=== PATIENT | female | born 1980 | race Caucasian/White ===

== ENCOUNTER → 2016-10-12 | Outpatient (REF) | payer OTHER ==
[~2016-10-12] MED LIST: ALBU83IN; COLA100C2; FLUC10TA; IBUP200C PO; LEVA750T; MUCINEX; NICO14DI3; NYSTATIN ORAL; No Historical Meds; PERC5TAB8; PRED10TA2; PRED20TA; PRED50TA; [UNRECOGNIZED DRUG - CODE] IV
== END ==
LOC: M LAB REF 12:51
PROVIDERS: ATTEND Physician Assistant
DX: R53.83 Other fatigue (principal)

== ENCOUNTER → 2016-10-18 | Outpatient (REF) | payer OTHER ==
[2016-10-18 15:57] LABS: BASO % 0.2 % (0.0-1.0); EOS # 0.5 K/mm3 (0.0-0.50); EOS % 4.7 % (0.0-3.0); LARGE UNSTAINED CELL # 0.3 K/mm3 (0.0-0.4); LYMPH # 2.8 K/mm3 (1.5-4.5); MEAN CORPUSCULAR HEMOGLOBIN 27.4 pg (27.0-33.0); MEAN CORPUSCULAR HGB CONC 31.4 g/dl (32.0-36.5); MEAN CORPUSCULAR VOLUME 87.1 fl (80.0-96.0); MONO # 0.6 K/mm3 (0.0-0.8); MONO % 5.4 % (0.0-5.0); NEUTROPHILS # 6.3 K/mm3 (1.8-7.7); NEUTROPHILS % 59.7 % (36.0-66.0); PLATELET COUNT, AUTOMATED 463 k/mm3 (150-450); RED CELL DISTRIBUTION WIDTH 13.3 % (11.5-14.5); WHITE BLOOD COUNT 10.5 K/mm3 (4.0-10.0)
[2016-10-18 16:08] LABS: ALBUMIN 3.8 GM/DL (3.2-5.2); ALBUMIN/GLOBULIN RATIO 1.12 (1.00-1.93); ALKALINE PHOSPHATASE 130 U/L (45-117); ALT/SGPT 17 U/L (12-78); ANION GAP 9 MEQ/L (8-16); AST/SGOT 8 U/L (15-37); BILIRUBIN,TOTAL 0.2 MG/DL (0.2-1.0); BLOOD UREA NITROGEN 11 MG/DL (7-18); CARBON DIOXIDE LEVEL 27 MEQ/L (21-32); CHLORIDE LEVEL 105 MEQ/L (98-107); CREATININE FOR GFR 0.89 MG/DL (0.55-1.02); GLOMERULAR FILTRATION RATE > 60.0 (>60); GLUCOSE, FASTING 100 MG/DL (70-105); POTASSIUM SERUM 4.3 MEQ/L (3.5-5.1); SODIUM LEVEL 141 MEQ/L (136-145); TOTAL PROTEIN 7.2 GM/DL (6.4-8.2)
[2016-10-19 11:26] LABS: CONTROL LINE MONO INT CTR LINE PRESENT
== END ==
LOC: M SFHCPLAZ 13:39
PROVIDERS: ATTEND Physician Assistant
DX: J06.9 Acute upper respiratory infection, unspecified (principal); R53.83 Other fatigue

== ENCOUNTER → 2016-10-25 | Outpatient (REF) | payer OTHER ==
[2016-10-25 19:37] LABS: BASO % 0.2 % (0.0-1.0); EOS # 0.5 K/mm3 (0.0-0.50); EOS % 4.9 % (0.0-3.0); LARGE UNSTAINED CELL # 0.2 K/mm3 (0.0-0.4); LYMPH # 3.9 K/mm3 (1.5-4.5); LYMPH % 34.5 % (24.0-44.0); MEAN CORPUSCULAR HGB CONC 32.3 g/dl (32.0-36.5); MEAN CORPUSCULAR VOLUME 86.5 fl (80.0-96.0); MONO # 0.6 K/mm3 (0.0-0.8); MONO % 5.3 % (0.0-5.0); NEUTROPHILS # 5.7 K/mm3 (1.8-7.7); NEUTROPHILS % 53.2 % (36.0-66.0); PLATELET COUNT, AUTOMATED 367 k/mm3 (150-450); WHITE BLOOD COUNT 10.8 K/mm3 (4.0-10.0)
[2016-10-25 20:11] LABS: ALBUMIN/GLOBULIN RATIO 1.14 (1.00-1.93); ALKALINE PHOSPHATASE 131 U/L (45-117); ALT/SGPT 16 U/L (12-78); AMYLASE 57 U/L (25-115); ANION GAP 8 MEQ/L (8-16); AST/SGOT 14 U/L (15-37); BILIRUBIN,TOTAL 0.4 MG/DL (0.2-1.0); BLOOD UREA NITROGEN 9 MG/DL (7-18); CALCIUM LEVEL 8.8 MG/DL (8.5-10.1); CARBON DIOXIDE LEVEL 26 MEQ/L (21-32); CHLORIDE LEVEL 105 MEQ/L (98-107); CREATININE FOR GFR 0.92 MG/DL (0.55-1.02); FREE T4 0.87 NG/DL (0.76-1.46); GLOMERULAR FILTRATION RATE > 60.0 (>60); GLUCOSE, FASTING 84 MG/DL (70-105); POTASSIUM SERUM 4.2 MEQ/L (3.5-5.1); SODIUM LEVEL 139 MEQ/L (136-145); TOTAL PROTEIN 7.5 GM/DL (6.4-8.2)
== END ==
LOC: M SFHCPLAZ 17:29
PROVIDERS: ATTEND Nurse Practitioner Family
DX: R11.2 Nausea with vomiting, unspecified (principal); R53.83 Other fatigue; A09 Infectious gastroenteritis and colitis, unspecified

== ENCOUNTER → 2016-10-26 | Outpatient (REF) | payer OTHER | LOC: M SFHCPLAZ 12:55 | PROVIDERS: ATTEND Nurse Practitioner Family | DX: R11.2 Nausea with vomiting, unspecified (principal); A09 Infectious gastroenteritis and colitis, unspecified ==

== ENCOUNTER → 2016-11-01 | Outpatient (CLI) | payer OTHER ==
--- NOTE | 2016-11-01 09:39 | REP ---
RIGHT UPPER QUADRANT ULTRASOUND: 11/01/2016. Comparison CT abdomen and pelvis 01/22/2011. Clinical history. Right upper quadrant pain. The liver is homogeneous in echotexture without focal hepatic mass, intrahepatic biliary dilatation nor perihepatic ascites. Gallbladder measures 5.6 x 3.3 x 3.3 cm. It has a wall thickness 1.4 mm which is normal. There is a mucosal fold in the fundus representing a normal anatomic variation. Some echogenic debris is within that fold. There was a positive sonographic Pedroza's sign recorded by the technologist during this examination. Common duct is 2.8 mm and without a filling defect. Pancreas is limited in evaluation but the visualized portion of head, neck and body seen were unremarkable. Tail is obscured by gas shadowing. Right kidney is 9.3 x 5.8 x 5.5 cm without stone or hydronephrosis. Impression: 1. There is echogenic debris in the fundus of the gallbladder behind the mucosal fold which is a common anatomic variation. A positive sonographic Pedroza's sign is seen. There is no definite stone, wall thickening or pericholecystic fluid. 2. Common duct 2.8 mm and the liver grossly unremarkable. 3. Visualized portion of pancreas and right kidney unremarkable.
== END ==
LOC: M WHC 08:26
PROVIDERS: ATTEND Physician Assistant
DX: R10.11 Right upper quadrant pain (principal)

== ENCOUNTER → 2016-11-02 | Outpatient (REF) | payer OTHER ==
[2016-11-02 13:59] LABS: CONTROL LINE HPYORI INT CTR LINE PRESENT
== END ==
LOC: M SFHCPLAZ 10:54
PROVIDERS: ATTEND Physician Assistant
DX: R10.11 Right upper quadrant pain (principal)

== ENCOUNTER → 2016-11-06 | Outpatient (CLI) | payer OTHER ==
--- NOTE | 2016-11-06 11:55 | REP ---
Hepatobiliary scan and gallbladder ejection fraction: History: Right upper quadrant pain. Technique: 6.2 mCi of technetium-99m mebrofenin was injected and sequential anterior images are acquired. 65 minutes after the mebrofenin injection, the patient consumed 8 ounces Ensure and an additional 60 minutes of imaging was acquired. Regions of interest are plotted around the gallbladder. Findings: The initial hepatocellular parenchymal uptake phase is normal and homogeneous. Intra- and extra-hepatic bile ducts and duodenum are labeled by the 10 -minute image. The gallbladder is first labeled on the 15 -minute image. There is normal washout from the liver parenchyma into the gallbladder and small intestine on subsequent images. The gallbladder ejection fraction is normal at 49 %. Values greater than 35 % are considered normal with this technique. Impression: Normal hepatobiliary scan and gallbladder ejection fraction. Signed by Alex Berman MD 11/06/2016 11:46 A
== END ==
LOC: M RAD 08:08
PROVIDERS: ATTEND Physician Assistant
DX: R10.11 Right upper quadrant pain (principal)

== ENCOUNTER → 2016-11-09 | Outpatient (CLI) | payer OTHER ==
[~2016-11-09] MED LIST changes: +GASTROGRAFIN SOLUTION 30ML (Q9963) As Ordered ONE; +ISOVUE-370 76% 100ML VIAL (Q9967) As Ordered ONE
--- NOTE | 2016-11-09 12:41 | REP ---
CT ABDOMEN AND PELVIS WITH IV CONTRAST WITH CT ABDOMEN WITHOUT IV CONTRAST: TECHNIQUE: Axial noncontrast images through the abdomen followed by contrast-enhanced images through the abdomen and pelvis using 100 mL Isovue 370 intravenous contrast material, with coronal and sagittal reformations. The visualized lung bases are clear. Liver, spleen, adrenals, pancreas, kidneys and gallbladder appear unremarkable. No renal or ureteral calculus is seen. There is no evidence of hydroureteronephrosis. There is no abdominal aortic aneurysm. I see no adenopathy. There is no free air or free fluid. There is no bowel wall thickening. There is no evidence of appendicitis. I see no pelvic mass. The urinary bladder is unremarkable. IMPRESSION: Negative CT abdomen and pelvis. Signed by Esteban Paul MD 11/09/2016 08:32 P
== END ==
LOC: M RAD 08:27
PROVIDERS: ATTEND Physician Assistant
DX: R10.11 Right upper quadrant pain (principal)
CPT/HCPCS: 74170; Q9963; Q9967

== ENCOUNTER 2016-11-28 12:44 | Outpatient (CLI) | payer OTHER ==
[~2016-11-28] VITALS: Ht 160 cm; Wt 92.3 kg
[~2016-11-28 12:44] MED LIST changes: -GASTROGRAFIN SOLUTION 30ML (Q9963) As Ordered ONE; -ISOVUE-370 76% 100ML VIAL (Q9967) As Ordered ONE; +methylPREDNISolone 1,000 MG, VIAL MATE ADAPTER 1 EACH in D5W 250 ML IV ONE
== END 2016-11-28 14:40 | disposition home or self-care (01) ==
LOC: M INFU 12:44
PROVIDERS: ATTEND Psychiatry & Neurology Neurology
DX: H46.9 Unspecified optic neuritis (principal)
CPT/HCPCS: 96365; J2930

== ENCOUNTER 2016-11-29 08:25 | Outpatient (CLI) | payer OTHER ==
[~2016-11-29] VITALS: Ht 160 cm; Wt 92.3 kg
[~2016-11-29 08:25] MED LIST changes: -methylPREDNISolone 1,000 MG, VIAL MATE ADAPTER 1 EACH in D5W 250 ML IV ONE
[2016-11-29] MEDS ORDERED: methylPREDNISolone 1,000 MG, VIAL MATE ADAPTER 1 EACH in D5W 250 ML IV ONE (08:30)
[2016-11-30] MEDS ORDERED: CELL500T PO (08:57)
[2016-11-30] MEDS ORDERED: VITA1CAP25 PO (08:57)
[2016-11-30] MEDS ORDERED: CYCL10TA PO (08:58)
== END 2016-11-29 10:00 | disposition home or self-care (01) ==
LOC: M INFU 08:25
PROVIDERS: ATTEND Psychiatry & Neurology Neurology
DX: H46.9 Unspecified optic neuritis (principal)
CPT/HCPCS: 96365; J2930

== ENCOUNTER 2016-11-30 06:38 | Outpatient (CLI) | payer OTHER ==
[~2016-11-30] VITALS: Ht 160 cm; Wt 92.3 kg
[2016-11-30] MEDS ORDERED: methylPREDNISolone 1,000 MG, VIAL MATE ADAPTER 1 EACH in D5W 250 ML IV ONE (07:00)
[2016-11-30] MEDS ORDERED: CELL500T PO (08:57)
[2016-11-30] MEDS ORDERED: VITA1CAP25 PO (08:57)
[2016-11-30] MEDS ORDERED: CYCL10TA PO (08:58)
== END 2016-11-30 08:45 | disposition home or self-care (01) ==
LOC: M INFU 06:38
PROVIDERS: ATTEND Psychiatry & Neurology Neurology
DX: H46.9 Unspecified optic neuritis (principal)
CPT/HCPCS: 96365; 96366; J2930

== ENCOUNTER → 2016-12-13 | Outpatient (REF) | payer OTHER ==
[~2016-12-13] MED LIST changes: +CELL500T PO; +CYCL10TA PO; +VITA1CAP25 PO; +[UNRECOGNIZED DRUG - CODE] XX
[2016-12-13 19:23] LABS: FREE T4 0.83 NG/DL (0.76-1.46)
== END ==
LOC: M LABDRAW1 17:14
PROVIDERS: ATTEND Physician Assistant Medical
DX: R19.7 Diarrhea, unspecified (principal)

== ENCOUNTER → 2016-12-28 | Outpatient (CLI) | payer OTHER ==
--- NOTE | 2016-12-28 18:23 | REP ---
PA and lateral chest: Comparison 04/04/2011. The lung angel are clear. The cardiac size is normal The zane, mediastinum, and bony thorax are unremarkable. Impression: Negative PA and lateral chest. There is no interval change Signed by Esteban Paulino MD 12/28/2016 06:15 P
== END ==
LOC: M RAD 17:53
PROVIDERS: ATTEND Family Medicine
DX: J45.31 Mild persistent asthma with (acute) exacerbation (principal)

== ENCOUNTER → 2016-12-31 | Outpatient (CLI) | payer OTHER ==
[~2016-12-31] VITALS: Ht 160 cm; Wt 101.6 kg
[~2016-12-31] MED LIST changes: +LIDOCAINE 2% INJ 100 MG/5 ML SDV (FOR ANES.) As Ordered ONE; +NS 1,000 ML IV SCH; +PROPOFOL 500 MG/50 ML VIAL As Ordered ONE
--- NOTE | 2016-12-31 12:57 | ROOR ---
Patient Name: Hali Mccrary Procedure Date: 12/31/2016 12:48 PM Date of : 1980 Age: 36 Room: [facility] Gender: Female Note Status: Finalized Procedure: Upper GI endoscopy Indications: Epigastric abdominal pain, Heartburn Providers: Salinas DRUMMOND MD Referring MD: PATRIC Pride Requesting Provider: Medicines: Monitored Anesthesia Care Complications: No immediate complications. Procedure: Pre-Anesthesia Assessment: - The heart rate, respiratory rate, oxygen saturations, blood pressure, adequacy of pulmonary ventilation, and response to care were monitored throughout the procedure. The Endoscope was introduced through the mouth, and advanced to the second part of duodenum. The upper GI endoscopy was accomplished without difficulty. The patient tolerated the procedure well. Findings: The esophagus was normal. The stomach was normal. The examined duodenum was normal. Impression: - Normal esophagus. - Normal stomach. - Normal examined duodenum. - No specimens collected. Recommendation: - Continue present medications. - Observe patient's clinical course. - Follow an antireflux regimen. Salinas Drummond MD Salinas DRUMMOND MD 12/31/2016 12:57:17 PM This report has been signed electronically. Number of Addenda: 0 Note Initiated On: 12/31/2016 12:48 PM Estimated Blood Loss: Estimated blood loss: none.
--- NOTE | 2016-12-31 13:09 | ROOR ---
Patient Name: Hali Mccrary Procedure Date: 12/31/2016 12:49 PM Date of : 1980 Age: 36 Room: [facility] Gender: Female Note Status: Finalized Procedure: Colonoscopy Indications: Generalized abdominal pain, Suspected irritable bowel syndrome Providers: Salinas DRUMMOND MD Referring MD: PATRIC Pride Requesting Provider: Medicines: Monitored Anesthesia Care Complications: No immediate complications. Procedure: Pre-Anesthesia Assessment: - The heart rate, respiratory rate, oxygen saturations, blood pressure, adequacy of pulmonary ventilation, and response to care were monitored throughout the procedure. The Colonoscope was introduced through the anus and advanced to 4 cm into the ileum. The colonoscopy was performed without difficulty. The patient tolerated the procedure well. The quality of the bowel preparation was good. Findings: The perianal and digital rectal examinations were normal. The colon (entire examined portion) appeared normal. The terminal ileum appeared normal. Impression: - The entire colon is normal. - The terminal ileum is normal. - No specimens collected. - (Irritable Bowel Syndrome/IBS suspected.) Recommendation: - Use fiber, for example Citrucel, Fibercon, Konsyl or Metamucil. - Use Bentyl (dicyclomine) 20 mg PO TID 30 min AC. - (the script was sent to your pharmacy on file) Salinas Drummond MD Salinas DRUMMOND MD 12/31/2016 1:09:24 PM This report has been signed electronically. Number of Addenda: 0 Note Initiated On: 12/31/2016 12:49 PM Estimated Blood Loss: Estimated blood loss: none.
[2016-12-31 13:30] VITALS: BP 134/84
== END ==
LOC: M OPP 10:54
PROVIDERS: ATTEND Internal Medicine Gastroenterology
DX: R10.84 Generalized abdominal pain (principal); Z80.0 Family history of malignant neoplasm of digestive organs; R10.13 Epigastric pain; J45.909 Unspecified asthma, uncomplicated; F17.200 Nicotine dependence, unspecified, uncomplicated; G36.0 Neuromyelitis optica [Devic]; Z85.41 Personal history of malignant neoplasm of cervix uteri; Z79.52 Long term (current) use of systemic steroids; Z79.899 Other long term (current) drug therapy; Z88.2 Allergy status to sulfonamides; Z88.0 Allergy status to penicillin; Z88.8 Allergy status to other drugs, medicaments and biological substances

== ENCOUNTER → 2017-01-17 | Outpatient (REF) | payer OTHER ==
[~2017-01-17] MED LIST changes: -LIDOCAINE 2% INJ 100 MG/5 ML SDV (FOR ANES.) As Ordered ONE; -NS 1,000 ML IV SCH; -PROPOFOL 500 MG/50 ML VIAL As Ordered ONE
== END ==
LOC: M LABNEURO 17:02
PROVIDERS: ATTEND Psychiatry & Neurology Neurology
DX: G62.9 Polyneuropathy, unspecified (principal); J45.909 Unspecified asthma, uncomplicated; F32.9 Major depressive disorder, single episode, unspecified; F17.200 Nicotine dependence, unspecified, uncomplicated

== ENCOUNTER → 2017-02-07 | Outpatient (REF) | payer OTHER | LOC: M LABNEURO 13:17 | PROVIDERS: ATTEND Psychiatry & Neurology Neurology | DX: E55.9 Vitamin D deficiency, unspecified (principal) ==

== ENCOUNTER → 2017-02-08 | Outpatient (REF) | payer OTHER ==
[2017-02-08 16:15] LABS: MAGNESIUM LEVEL 2.1 MG/DL (1.8-2.4)
== END ==
LOC: M SFHCPLAZ 14:00
PROVIDERS: ATTEND Family Medicine
DX: R74.8 Abnormal levels of other serum enzymes (principal); G62.9 Polyneuropathy, unspecified; E55.9 Vitamin D deficiency, unspecified

== ENCOUNTER 2017-02-20 12:55 | Emergency (ER) | payer OTHER ==
[~2017-02-20] VITALS: Ht 160 cm; Wt 107.0 kg
[2017-02-20] MEDS ORDERED: METH2.5TA PO (13:21)
[2017-02-20] MEDS ORDERED: VARE1TA PO (13:21)
[2017-02-20] MEDS ORDERED: PRED20TA PO (15:09)
[2017-02-20] MEDS ORDERED: NEUR300C PO (15:09)
[2017-02-20 15:20] VITALS: BP 125/83
== END 2017-02-20 15:21 | disposition home or self-care (01) ==
LOC: M ED 14:01
DX: M54.32 Sciatica, left side (principal); G36.0 Neuromyelitis optica [Devic]; J45.909 Unspecified asthma, uncomplicated; F17.200 Nicotine dependence, unspecified, uncomplicated; Z79.899 Other long term (current) drug therapy; Z88.0 Allergy status to penicillin; Z88.2 Allergy status to sulfonamides; Z91.013 Allergy to seafood

== ENCOUNTER → 2017-04-15 | Outpatient (REF) | payer OTHER ==
[~2017-04-15] MED LIST changes: +ASMA16.7 INH; +GABA600T PO; +IBUP-1114 PO; -IBUP200C PO; +IBUP200C10 PO; +IBUPOTC PO; +LORA10TA2; +LORA10TA2 PO; +METH1VL IM; +METH1VL IV; +METH2.5TA PO; +NEUR300C PO; +OMEP40CA2; +OMEP40CA2 PO; +ONDA4TAB5; +ONDA4TAB5 PO; +PRED20TA PO; +PRED5TA PO; +VARE1TA PO; +VENL37.52 PO; +VENTAER INH
[2017-04-16 14:13] LABS: SJOGREN'S ANTI SS-A <0.2 AI (0.0-0.9); SJOGREN'S ANTI SS-B <0.2 AI (0.0-0.9)
== END ==
LOC: M SFHCPLAZ 12:04
PROVIDERS: ATTEND Family Medicine
DX: G36.0 Neuromyelitis optica [Devic] (principal)

== ENCOUNTER 2017-04-24 16:35 | Outpatient (CLI) | payer OTHER ==
[~2017-04-24] VITALS: Ht 160 cm; Wt 102.7 kg
[~2017-04-24 16:35] MED LIST changes: -ASMA16.7 INH; -GABA600T PO; -IBUP-1114 PO; -IBUPOTC PO; -LORA10TA2; -LORA10TA2 PO; -METH1VL IM; -METH1VL IV; -OMEP40CA2; -OMEP40CA2 PO; -ONDA4TAB5; -ONDA4TAB5 PO; -PRED5TA PO; -VENL37.52 PO; -VENTAER INH
[2017-04-24 17:00] VITALS: BP 125/83
[2017-04-24] MEDS ORDERED: methylPREDNISolone 1,000 MG, VIAL MATE ADAPTER 1 EACH in D5W 250 ML IV ONE (18:00)
[2017-04-25] MEDS ORDERED: PRED20TA PO (09:31)
[2017-04-25] MEDS ORDERED: GABA600T PO (09:31)
[2017-07-10] MEDS ORDERED: OMEP40CA2 (11:40)
[2017-07-10] MEDS ORDERED: ONDA4TAB5 (11:40)
[2017-07-10] MEDS ORDERED: LORA10TA2 (11:40)
[2017-07-10] MEDS ORDERED: ASMA16.7 INH (14:30)
[2017-07-10] MEDS ORDERED: PRED5TA PO (14:30)
[2017-07-10] MEDS ORDERED: GABA600T PO (14:30)
[2017-07-10] MEDS ORDERED: OMEP40CA2 PO (14:30)
[2017-07-10] MEDS ORDERED: VENL37.52 PO (14:30)
[2017-07-10] MEDS ORDERED: VENTAER INH (14:30)
[2017-07-10] MEDS ORDERED: ONDA4TAB5 PO (14:30)
[2017-07-10] MEDS ORDERED: METH1VL IM (14:30)
[2017-07-10] MEDS ORDERED: IBUPOTC PO (14:30)
[2017-07-10] MEDS ORDERED: LORA10TA2 PO (14:30)
== END 2017-04-24 19:15 | disposition home or self-care (01) ==
LOC: M OPCLIPED 16:35 → M PED 16:41 → M OPCLIPED 19:15
PROVIDERS: ATTEND Psychiatry & Neurology Neurology
DX: H46.9 Unspecified optic neuritis (principal); Z79.899 Other long term (current) drug therapy; Z88.0 Allergy status to penicillin; Z88.2 Allergy status to sulfonamides; Z91.013 Allergy to seafood
CPT/HCPCS: 96374; J2930

== ENCOUNTER 2017-04-25 09:20 | Outpatient (CLI) | payer OTHER ==
[~2017-04-25] VITALS: Ht 160 cm; Wt 102.7 kg
[2017-04-25 08:00] VITALS: BP 134/74
[2017-04-25] MEDS ORDERED: GABA600T PO (09:31)
[2017-04-25] MEDS ORDERED: PRED20TA PO (09:31)
[2017-04-25] MEDS ORDERED: methylPREDNISolone 1,000 MG, VIAL MATE ADAPTER 1 EACH in D5W 250 ML IV ONE (10:00)
[2017-07-10] MEDS ORDERED: LORA10TA2 (11:40)
[2017-07-10] MEDS ORDERED: OMEP40CA2 (11:40)
[2017-07-10] MEDS ORDERED: ONDA4TAB5 (11:40)
[2017-07-10] MEDS ORDERED: VENTAER INH (14:30)
[2017-07-10] MEDS ORDERED: IBUPOTC PO (14:30)
[2017-07-10] MEDS ORDERED: LORA10TA2 PO (14:30)
[2017-07-10] MEDS ORDERED: OMEP40CA2 PO (14:30)
[2017-07-10] MEDS ORDERED: ASMA16.7 INH (14:30)
[2017-07-10] MEDS ORDERED: VENL37.52 PO (14:30)
[2017-07-10] MEDS ORDERED: ONDA4TAB5 PO (14:30)
[2017-07-10] MEDS ORDERED: GABA600T PO (14:30)
[2017-07-10] MEDS ORDERED: PRED5TA PO (14:30)
[2017-07-10] MEDS ORDERED: METH1VL IM (14:30)
== END 2017-04-25 11:20 | disposition home or self-care (01) ==
LOC: M OPCLIPED 09:20 → M PED 09:23 → M OPCLIPED 11:20
PROVIDERS: ATTEND Psychiatry & Neurology Neurology
DX: H46.9 Unspecified optic neuritis (principal); Z88.0 Allergy status to penicillin; Z88.2 Allergy status to sulfonamides; Z91.013 Allergy to seafood; Z79.899 Other long term (current) drug therapy
CPT/HCPCS: 96365; J2930

== ENCOUNTER 2017-04-26 08:09 | Outpatient (CLI) | payer OTHER ==
[~2017-04-26] VITALS: Ht 160 cm; Wt 105.0 kg
[~2017-04-26 08:09] MED LIST changes: +GABA600T PO
[2017-04-26 08:15] VITALS: BP 130/72
[2017-04-26] MEDS ORDERED: methylPREDNISolone 1,000 MG, VIAL MATE ADAPTER 1 EACH in D5W 250 ML IV ONE (08:30)
[2017-07-10] MEDS ORDERED: OMEP40CA2 (11:40)
[2017-07-10] MEDS ORDERED: ONDA4TAB5 (11:40)
[2017-07-10] MEDS ORDERED: LORA10TA2 (11:40)
[2017-07-10] MEDS ORDERED: ASMA16.7 INH (14:30)
[2017-07-10] MEDS ORDERED: ONDA4TAB5 PO (14:30)
[2017-07-10] MEDS ORDERED: GABA600T PO (14:30)
[2017-07-10] MEDS ORDERED: VENL37.52 PO (14:30)
[2017-07-10] MEDS ORDERED: IBUPOTC PO (14:30)
[2017-07-10] MEDS ORDERED: PRED5TA PO (14:30)
[2017-07-10] MEDS ORDERED: VENTAER INH (14:30)
[2017-07-10] MEDS ORDERED: LORA10TA2 PO (14:30)
[2017-07-10] MEDS ORDERED: OMEP40CA2 PO (14:30)
[2017-07-10] MEDS ORDERED: METH1VL IM (14:30)
== END 2017-04-26 12:05 | disposition home or self-care (01) ==
LOC: M OPCLI4PV 08:09 → M MSPAV 08:11 → M OPCLI4PV 12:05
PROVIDERS: ATTEND Psychiatry & Neurology Neurology
DX: H46.9 Unspecified optic neuritis (principal); Z88.0 Allergy status to penicillin; Z88.2 Allergy status to sulfonamides; Z91.013 Allergy to seafood; Z79.899 Other long term (current) drug therapy
CPT/HCPCS: 96374; J2930

== ENCOUNTER 2017-04-27 10:55 | Outpatient (CLI) | payer OTHER ==
[2017-04-27] MEDS ORDERED: methylPREDNISolone 1,000 MG, VIAL MATE ADAPTER 1 EACH in D5W 250 ML IV ONE (12:00)
[2017-04-28] MEDS ORDERED: METH1VL IV (10:17)
[2017-04-28] MEDS ORDERED: IBUP-1114 PO (10:17)
[2017-07-10] MEDS ORDERED: ONDA4TAB5 (11:40)
[2017-07-10] MEDS ORDERED: LORA10TA2 (11:40)
[2017-07-10] MEDS ORDERED: OMEP40CA2 (11:40)
[2017-07-10] MEDS ORDERED: GABA600T PO (14:30)
[2017-07-10] MEDS ORDERED: OMEP40CA2 PO (14:30)
[2017-07-10] MEDS ORDERED: VENTAER INH (14:30)
[2017-07-10] MEDS ORDERED: PRED5TA PO (14:30)
[2017-07-10] MEDS ORDERED: ASMA16.7 INH (14:30)
[2017-07-10] MEDS ORDERED: METH1VL IM (14:30)
[2017-07-10] MEDS ORDERED: VENL37.52 PO (14:30)
[2017-07-10] MEDS ORDERED: IBUPOTC PO (14:30)
[2017-07-10] MEDS ORDERED: ONDA4TAB5 PO (14:30)
[2017-07-10] MEDS ORDERED: LORA10TA2 PO (14:30)
== END 2017-04-27 13:13 | disposition home or self-care (01) ==
LOC: M OPCLI4PV 10:55 → M MSPAV 10:57 → M OPCLI4PV 13:13
PROVIDERS: ATTEND Psychiatry & Neurology Neurology
DX: H46.9 Unspecified optic neuritis (principal); Z88.0 Allergy status to penicillin; Z88.2 Allergy status to sulfonamides; Z91.013 Allergy to seafood; Z79.899 Other long term (current) drug therapy
CPT/HCPCS: 96374; J2930

== ENCOUNTER 2017-04-28 09:52 | Outpatient (CLI) | payer OTHER ==
[~2017-04-28] VITALS: Ht 160 cm; Wt 105.0 kg
[2017-04-28 10:15] VITALS: BP 120/77
[2017-04-28] MEDS ORDERED: IBUP-1114 PO (10:17)
[2017-04-28] MEDS ORDERED: METH1VL IV (10:17)
[2017-04-28] MEDS ORDERED: methylPREDNISolone 1,000 MG, VIAL MATE ADAPTER 1 EACH in D5W 250 ML IV ONE (10:30)
[2017-07-10] MEDS ORDERED: LORA10TA2 (11:40)
[2017-07-10] MEDS ORDERED: OMEP40CA2 (11:40)
[2017-07-10] MEDS ORDERED: ONDA4TAB5 (11:40)
[2017-07-10] MEDS ORDERED: ASMA16.7 INH (14:30)
[2017-07-10] MEDS ORDERED: GABA600T PO (14:30)
[2017-07-10] MEDS ORDERED: ONDA4TAB5 PO (14:30)
[2017-07-10] MEDS ORDERED: IBUPOTC PO (14:30)
[2017-07-10] MEDS ORDERED: OMEP40CA2 PO (14:30)
[2017-07-10] MEDS ORDERED: METH1VL IM (14:30)
[2017-07-10] MEDS ORDERED: LORA10TA2 PO (14:30)
[2017-07-10] MEDS ORDERED: VENL37.52 PO (14:30)
[2017-07-10] MEDS ORDERED: PRED5TA PO (14:30)
[2017-07-10] MEDS ORDERED: VENTAER INH (14:30)
== END 2017-04-28 11:25 | disposition home or self-care (01) ==
LOC: M OPCLIPED 09:52 → M PED 09:54 → M OPCLIPED 11:25
PROVIDERS: ATTEND Psychiatry & Neurology Neurology
DX: H46.9 Unspecified optic neuritis (principal); Z88.0 Allergy status to penicillin; Z88.2 Allergy status to sulfonamides; Z91.013 Allergy to seafood; Z79.899 Other long term (current) drug therapy
CPT/HCPCS: 96374; J2930

== ENCOUNTER → 2017-05-02 | Outpatient (CLI) | payer OTHER ==
[~2017-05-02] MED LIST changes: +ASMA16.7 INH; +IBUP-1114 PO; +IBUPOTC PO; +LORA10TA2; +LORA10TA2 PO; +METH1VL IM; +METH1VL IV; +OMEP40CA2; +OMEP40CA2 PO; +ONDA4TAB5; +ONDA4TAB5 PO; +PRED5TA PO; +VENL37.52 PO; +VENTAER INH
--- NOTE | 2017-05-02 08:48 | REP ---
MRI OF THE LEFT FOOT: MRI of the left foot performed utilizing multiple sequences in the axial, coronal, and sagittal planes. The visualized osseous structures demonstrate normal marrow signal. There is no evidence of bone marrow edema or occult fracture. The visualized tendons and ligaments appear intact. There is no tenosynovitis. The Achilles tendon is intact. The plantar tendon demonstrates no abnormal signal. There is no evidence of plantar fasciitis. No ganglion cyst is seen. There is a normal amount of joint fluid. IMPRESSION: Negative MRI left foot. Signed by Esteban Paul MD 05/02/2017 09:04 A
== END ==
LOC: M RAD 07:05
PROVIDERS: ATTEND Family Medicine
DX: M79.672 Pain in left foot (principal)

== ENCOUNTER → 2017-05-20 | Outpatient (REF) | payer OTHER | LOC: M LAB REF 16:46 | PROVIDERS: ATTEND Internal Medicine Medical Oncology | DX: G36.0 Neuromyelitis optica [Devic] (principal) ==

== ENCOUNTER → 2017-06-05 | Outpatient (REF) | payer OTHER ==
[2017-06-05 15:44] LABS: INR 0.87
== END ==
LOC: M LAB REF 15:13
PROVIDERS: ATTEND Internal Medicine Medical Oncology
DX: G36.0 Neuromyelitis optica [Devic] (principal)

== ENCOUNTER → 2017-06-14 | Outpatient (CLI) | payer OTHER ==
[~2017-06-14] MED LIST changes: +CLINDAMYCIN 600 MG/50 ML PREMIX BAG As Ordered ONE; +LIDOCAINE 2% MDV 20 ML VIAL As Ordered ONE; +MIDAZOLAM INJ 2 MG/2 ML VIAL (J2250) As Ordered ONE; +ceFAZolin 1GM INJ (J0690) As Ordered ONE; +fentaNYL 100 MCG/2 ML INJECTION (J3010) As Ordered ONE
--- NOTE | 2017-06-19 11:03 | RO ---
DATE OF PROCEDURE: 06/14/2017 PREPROCEDURE DIAGNOSIS: Neuromyelitis optica. POSTPROCEDURE DIAGNOSIS: Neuromyelitis optica. PROCEDURE: Ultrasound with fluoroscopic guided right internal jugular vein, 20 cm Port-a-cath placement. SURGEON: Dr. Lucita Manzano. HAT FORMING MACHINE FEEDER: Sena Raines. ANESTHESIA: Local with sedation with 2 mg of Versed, 100 mcg of Fentanyl and 20 mL of 2% lidocaine. SEDATION TIME: From 9 o'clock to 9:30 a.m. with the sedation administered by myself, the cardiopulmonary monitoring performed by the nurse in the room and the entire procedure performed under my direct supervision and direction. I was present for and directed the entire case. ESTIMATED BLOOD LOSS: PREOPERATIVE ANTIBIOTICS: 900 mg of clindamycin. COMPLICATIONS: None. DRAINS: None. SPECIMENS: None. 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 Risks, benefits and alternative treatment options were discussed with the patient. PROCEDURE: The patient was taken to the angiography suite and placed supine on the angiography room table and then prepped and draped in a standard surgical fashion. The ultrasound was used to evaluate the right internal jugular vein which was noted to be widely patent, easily compressible and free of thrombus. The ultrasound was used to guide cannulation of the right internal jugular vein with concurrent real-time ultrasound imaging of the entry of the needle into the right internal jugular vein with a hard copy image being preserved. The micropuncture wire was advanced through the micropuncture needle which was upsized to a introducer sheath. The port was then inserted into a pocket created in the right chest after anesthetizing the overlying skin with 2% lidocaine. The catheter was tunneled and then advanced through the introducer sheath and positioned with the tip in the superior vena cava/right atrial junction. The port was aspirated and noted aspirate easily and then flushed with heparinized saline. The incisions were closed using #2-0 Vicryl and #3-0 Monocryl. Dressings were then applied. Patient tolerated the procedure well. All instruments, sponge and needle counts were correct at the end of the case. There were no complications. Dr. Manzano was present for and directed the entire case. Patient was transferred to the holding area and subsequently discharged in stable condition. The port is stable for use for access. RADIOLOGIC SUPERVISION INTERPRETATION: The ultrasound of the right internal jugular vein showed the vein to be easily compressible, widely patent and free of thrombus and ultrasound real-time concurrent visualization was performed during entry of the micropuncture needle into the right internal jugular vein with a hard copy image preserved. The port was placed with the tip in the superior vena cava/right atrial junction and there was no pneumo- or hemothorax noted at the completion of the port placement.
== END | disposition home or self-care (01) ==
LOC: M IRPRO 08:00
PROVIDERS: ATTEND Internal Medicine Medical Oncology
DX: G36.0 Neuromyelitis optica [Devic] (principal)
CPT/HCPCS: 36561; 76937; 77001; 99152; 99153; C1788; C1894; J2250; J3010

== ENCOUNTER → 2017-06-27 | Outpatient (CLI) | payer OTHER ==
[~2017-06-27] MED LIST changes: -CLINDAMYCIN 600 MG/50 ML PREMIX BAG As Ordered ONE; -LIDOCAINE 2% MDV 20 ML VIAL As Ordered ONE; -MIDAZOLAM INJ 2 MG/2 ML VIAL (J2250) As Ordered ONE; -ceFAZolin 1GM INJ (J0690) As Ordered ONE; -fentaNYL 100 MCG/2 ML INJECTION (J3010) As Ordered ONE
== END ==
LOC: M IRPRO 07:49
PROVIDERS: ATTEND Internal Medicine Medical Oncology
DX: Z53.8 Procedure and treatment not carried out for other reasons (principal)

== ENCOUNTER → 2017-11-18 | Outpatient (REF) | payer OTHER | LOC: M LAB REF 16:48 | DX: G36.0 Neuromyelitis optica [Devic] (principal) ==

== ENCOUNTER → 2017-12-06 | Outpatient (REF) | payer OTHER ==
[2017-12-06 16:09] LABS: INFLUENZA A AMPLIFICATION NEGATIVE (NEGATIVE); INFLUENZA B AMPLIFICATION NEGATIVE (NEGATIVE)
== END ==
LOC: M LAB REF 15:29
DX: Z11.59 Encounter for screening for other viral diseases (principal)

== ENCOUNTER → 2018-01-13 | Outpatient (REF) | payer OTHER | LOC: M SFHCPLAZ 12:43 | DX: R68.89 Other general symptoms and signs (principal); R73.03 Prediabetes ==

== ENCOUNTER → 2018-01-14 | Outpatient (REF) | payer OTHER ==
[2018-01-14 10:14] LABS: CORTISOL AM 15.3 UG/DL (4.3-22.4)
[2018-01-14 10:33] LABS: ESTIMATED AVERAGE GLUCOSE 114 MG/DL (60-110); HEMOGLOBIN A1c 5.6 %
== END ==
LOC: M SFHCPLAZ 07:59
DX: R68.89 Other general symptoms and signs (principal); R73.03 Prediabetes

== ENCOUNTER 2018-04-05 19:59 | Emergency (ER) | payer OTHER ==
[2018-04-05] MEDS: TETRACAINE 0.5% OPHTH SOLN 4ML OS (21:15)
[2018-04-05] MEDS: methylPREDNISolone 1,000 MG, VIAL MATE ADAPTER 1 EACH in D5W 250 ML IV (22:55)
[2018-04-06] MEDS: SODIUM CHLORIDE 0.9% INJ 10 ML SYR IV (00:20)
== END 2018-04-06 00:26 | disposition home or self-care (01) ==
LOC: M ED 04-06 00:26
DX: H57.12 Ocular pain, left eye (principal); G36.0 Neuromyelitis optica [Devic]; G82.20 Paraplegia, unspecified
CPT/HCPCS: J2930

== ENCOUNTER 2018-04-06 15:10 | Emergency (ER) | payer OTHER ==
[2018-04-06] MEDS ORDERED: methylPREDNISolone INJ 125 MG/2 ML VIAL (J2930) IV (15:30)
[2018-04-06] MEDS: methylPREDNISolone 1,000 MG, VIAL MATE ADAPTER 1 EACH in D5W 250 ML IV (15:42)
[2018-04-06] MEDS: NS 500 ML IV (16:08)
[2018-04-06] MEDS: SODIUM CHLORIDE 0.9% INJ 10 ML SYR IV (17:02)
== END 2018-04-06 17:26 | disposition home or self-care (01) ==
LOC: M ED 15:10
DX: G36.0 Neuromyelitis optica [Devic] (principal); J45.909 Unspecified asthma, uncomplicated; Z79.899 Other long term (current) drug therapy; Z88.0 Allergy status to penicillin; Z88.2 Allergy status to sulfonamides; Z88.8 Allergy status to other drugs, medicaments and biological substances; Z91.013 Allergy to seafood
CPT/HCPCS: J2930

== ENCOUNTER 2018-04-07 05:25 | Emergency (ER) | payer OTHER ==
[2018-04-07] MEDS ORDERED: methylPREDNISolone INJ 125 MG/2 ML VIAL (J2930) IV (05:45)
[2018-04-07] MEDS: methylPREDNISolone 1,000 MG, VIAL MATE ADAPTER 1 EACH in D5W 250 ML IV (05:48)
[2018-04-07] MEDS ORDERED: SODIUM CHLORIDE 0.9% INJ 10 ML SYR IV (07:15)
== END 2018-04-07 07:19 | disposition home or self-care (01) ==
LOC: M ED 05:25
DX: Z04.8 Encounter for examination and observation for other specified reasons (principal); G36.0 Neuromyelitis optica [Devic]; J45.909 Unspecified asthma, uncomplicated; Z79.899 Other long term (current) drug therapy; Z88.0 Allergy status to penicillin; Z88.2 Allergy status to sulfonamides; Z88.8 Allergy status to other drugs, medicaments and biological substances; Z91.013 Allergy to seafood
CPT/HCPCS: J2930

== ENCOUNTER → 2018-04-21 | Outpatient (REF) | payer OTHER | LOC: M LAB REF 13:10 | DX: G36.0 Neuromyelitis optica [Devic] (principal) ==

== ENCOUNTER → 2018-04-21 | Outpatient (CLI) | payer OTHER ==
[2018-04-21 13:09] LABS: BASO # 0.1 10^3/uL (0.0-0.2); BASO % 0.5 % (0.0-1.0); EOS # 0.4 10^3/uL (0.0-0.50); EOS % 3.2 % (0.0-3.0); HEMATOCRIT 36.3 % (36.0-47.0); HEMOGLOBIN 11.6 g/dl (12.0-15.5); IMMATURE GRANULOCYTE % 0.7 % (0-3.0); LYMPH # 2.6 10^3/uL (1.5-4.5); LYMPH % 19.4 % (24.0-44.0); MEAN CORPUSCULAR HEMOGLOBIN 26.3 pg (27.0-33.0); MEAN CORPUSCULAR VOLUME 82.3 fl (80.0-96.0); MONO # 0.9 10^3/uL (0.0-0.8); MONO % 6.4 % (0.0-5.0); NEUTROPHILS # 9.5 10^3/uL (1.8-7.7); NEUTROPHILS % 69.8 % (36.0-66.0); PLATELET COUNT, AUTOMATED 416 10^3/uL (150-450); RED BLOOD COUNT 4.41 10^6/uL (4.00-5.40); RED CELL DISTRIBUTION WIDTH 17.4 % (11.5-14.5); WHITE BLOOD COUNT 13.5 10^3/uL (4.0-10.0)
[2018-04-21 13:51] LABS: ERYTHROCYTE SEDIMENTATION RATE 22 mm/hr (0-20)
[2018-04-21 16:36] LABS: ALBUMIN 3.6 GM/DL (3.2-5.2); ALBUMIN/GLOBULIN RATIO 1.06 (1.00-1.93); ALKALINE PHOSPHATASE 127 U/L (45-117); ALT/SGPT 22 U/L (12-78); ANION GAP 6 MEQ/L (8-16); AST/SGOT 10 U/L (7-37); BILIRUBIN,TOTAL 0.2 MG/DL (0.2-1.0); BLOOD UREA NITROGEN 12 MG/DL (7-18); C REACTIVE PROTEIN QUANTITATIV 1.76 MG/DL (0.00-0.30); CALCIUM LEVEL 8.9 MG/DL (8.5-10.1); CARBON DIOXIDE LEVEL 27 MEQ/L (21-32); CHLORIDE LEVEL 105 MEQ/L (98-107); CREATININE FOR GFR 0.77 MG/DL (0.55-1.30); FREE T4 0.72 NG/DL (0.76-1.46); GLOMERULAR FILTRATION RATE > 60.0 (>60); GLUCOSE, FASTING 97 MG/DL (70-100); POTASSIUM SERUM 4.2 MEQ/L (3.5-5.1); SODIUM LEVEL 138 MEQ/L (136-145)
[2018-04-23 00:06] LABS: TISSUE TRANSGLUTAMINASE IgA <2 U/mL (0-3)
== END ==
LOC: M LAB 12:32
DX: R19.4 Change in bowel habit (principal); R10.84 Generalized abdominal pain; R14.0 Abdominal distension (gaseous)
CPT/HCPCS: 74021

== ENCOUNTER → 2018-04-22 | Outpatient (REF) | payer OTHER | LOC: M LAB REF 08:58 | DX: R19.4 Change in bowel habit (principal) | CPT/HCPCS: 83630 ==

== ENCOUNTER → 2018-04-22 | Outpatient (REF) | payer OTHER | LOC: M LAB REF 10:04 | DX: G36.0 Neuromyelitis optica [Devic] (principal) ==

== ENCOUNTER → 2018-05-20 | Outpatient (REF) | payer OTHER, MEDICAID ==
[2018-05-22 00:07] LABS: BASOPHILS 0 % (Not Estab.); EOSINOPHILS 4 % (Not Estab.); EOSINOPHILS ABSOLUTE 0.5 x10E3/uL (0.0-0.4); HGB 12.5 g/dL (11.1-15.9); IMMATURE GRANS 0 % (Not Estab.); LYMPHOCYTES 20 % (Not Estab.); LYMPHOCYTES ABSOLUTE 2.4 x10E3/uL (0.7-3.1); MCH 27.1 pg (26.6-33.0); MCHC 32.9 g/dL (31.5-35.7); MCV 82 fL (79-97); MONOCYTES 7 % (Not Estab.); MONOCYTES ABSOLUTE 0.8 x10E3/uL (0.1-0.9); NEUTROPHILS 69 % (Not Estab.); NEUTROPHILS ABSOLUTE 7.9 x10E3/uL (1.4-7.0); PLT 402 x10E3/uL (150-379); RBC 4.61 x10E6/uL (3.77-5.28); RDW 16.8 % (12.3-15.4); WBC 11.6 x10E3/uL (3.4-10.8)
== END ==
LOC: M LAB REF 13:40
DX: G36.0 Neuromyelitis optica [Devic] (principal)

== ENCOUNTER → 2018-06-02 | Outpatient (CLI) | payer OTHER ==
[~2018-06-02] MED LIST changes: -ALBU83IN; -ASMA16.7 INH; -CELL500T PO; -COLA100C2; -CYCL10TA PO; -FLUC10TA; -GABA600T PO; +GASTROGRAFIN SOLUTION 30ML (Q9963) As Ordered; -IBUP-1114 PO; -IBUP200C10 PO; -IBUPOTC PO; +ISOVUE-370 76% 100ML VIAL (Q9967) As Ordered; -LEVA750T; -LORA10TA2; -LORA10TA2 PO; -METH1VL IM; -METH1VL IV; -METH2.5TA PO; -MUCINEX; -NEUR300C PO; -NICO14DI3; -NYSTATIN ORAL; -No Historical Meds; -OMEP40CA2; -OMEP40CA2 PO; -ONDA4TAB5; -ONDA4TAB5 PO; -PERC5TAB8; -PRED10TA2; -PRED20TA; -PRED20TA PO; -PRED50TA; -PRED5TA PO; -VARE1TA PO; -VENL37.52 PO; -VENTAER INH; -VITA1CAP25 PO; -[UNRECOGNIZED DRUG - CODE] IV; -[UNRECOGNIZED DRUG - CODE] XX
== END ==
LOC: M RAD 16:09
DX: R19.4 Change in bowel habit (principal); R10.84 Generalized abdominal pain; R14.0 Abdominal distension (gaseous)
CPT/HCPCS: Q9963

== ENCOUNTER → 2018-07-12 | Outpatient (REF) | payer OTHER, MEDICAID | LOC: M LAB REF 21:32 | DX: J02.9 Acute pharyngitis, unspecified (principal) ==

== ENCOUNTER 2018-07-24 10:21 | Day surgery (SDC) | payer OTHER ==
[2018-07-24] MEDS ORDERED: NS 1,000 ML IV (11:15)
[2018-07-24] MEDS ORDERED: LIDOCAINE 2% INJ 100 MG/5 ML SDV (FOR ANES.) As Ordered (12:35)
[2018-07-24] MEDS ORDERED: PROPOFOL 200 MG/20 ML VIAL As Ordered (12:35)
== END 2018-07-24 13:27 | disposition home or self-care (01) ==
LOC: M OPP 13:27
DX: K92.1 Melena (principal); R19.7 Diarrhea, unspecified; K52.9 Noninfective gastroenteritis and colitis, unspecified; K64.8 Other hemorrhoids; J45.909 Unspecified asthma, uncomplicated; G47.30 Sleep apnea, unspecified; Z88.8 Allergy status to other drugs, medicaments and biological substances
CPT/HCPCS: 45380

== ENCOUNTER → 2018-09-05 | Outpatient (REF) | payer OTHER ==
[~2018-09-05] MED LIST changes: +ALBU83IN; +ASMA16.7 INH; +BACL10TA2; +CELL500T PO; +CHAN1PAK11; +COLA100C2; +CYCL10TA PO; +DOXY100C37; +FLUC10TA; +GABA600T4 PO; -GASTROGRAFIN SOLUTION 30ML (Q9963) As Ordered; +IBUP-1114 PO; +IBUP200C25 PO; +IBUPOTC PO; -ISOVUE-370 76% 100ML VIAL (Q9967) As Ordered; +LEVA750T; +LORA-243; +LORA-243 PO; +METH1VL IM; +METH1VL IV; +METH2.5T48 PO; +MUCINEX; +NEUR300C PO; +NICO14DI3; +NYST50SS PO; +NYSTATIN ORAL; +No Historical Meds; +OMEP40CA2; +OMEP40CA2 PO; +ONDA4TAB5; +ONDA4TAB5 PO; +PERC5TAB8; +PRED10TA2; +PRED20TA; +PRED20TA PO; +PRED50TA; +PRED5TA PO; +SUMA50TA2; +TIZA2TA; +VARE1TA PO; +VENL37.52 PO; +VENTAER INH; +VITA1CAP25 PO; +[UNRECOGNIZED DRUG - CODE] IV; +[UNRECOGNIZED DRUG - CODE] XX
== END ==
LOC: M SFHCWAGY 14:11
PROVIDERS: ATTEND Family Medicine
DX: Z12.4 Encounter for screening for malignant neoplasm of cervix (principal)

== ENCOUNTER → 2018-09-12 | Outpatient (CLI) | payer OTHER ==
--- NOTE | 2018-09-12 19:04 | REP ---
Pelvic sonography: History: Contraceptive management. Comparison CT study June 02, 2018. Status post tubal ligation. Right sided clip displacement. Findings: Uterine dimensions are normal and 9.6 x 4.2 x 5.4 cm. Endometrial echo is 1.0 cm thick and centrally placed. Visualized bladder butterfield are smooth. There is a trace of endometrial fluid. No extrauterine fluid is seen. No focal uterine mass is seen. Right ovary is normal measuring 3.3 x 1.3 x 2.9 cm. Left ovarian dimensions are normal at 3.6 x 2.2 x 3.2 cm. Impression: Normal pelvic sonography.
== END ==
LOC: M WHC 15:06
PROVIDERS: ATTEND Family Medicine
DX: Z30.9 Encounter for contraceptive management, unspecified (principal)

== ENCOUNTER → 2018-09-19 | Outpatient (REF) | payer OTHER | LOC: M SFHCWAGY 11:41 | PROVIDERS: ATTEND Family Medicine | DX: Z12.4 Encounter for screening for malignant neoplasm of cervix (principal) ==

== ENCOUNTER → 2018-09-30 | Outpatient (REF) | payer OTHER ==
[2018-09-30 15:49] LABS: AMORPHOUS SEDIMENT LARGE (NEGATIVE); APPEARANCE, URINE CLOUDY (CLEAR); BACTERIA, URINE AUTO 1+ (NEGATIVE); BILIRUBIN, URINE AUTO NEGATIVE (NEGATIVE); BLOOD, URINE BLOOD NEGATIVE (NEGATIVE); COLOR, URINE YELLOW (YELLOW); GLUCOSE, URINE (UA) AUTO NEGATIVE (NEGATIVE); KETONE, URINE AUTO NEGATIVE (NEGATIVE); LEUKOCYTE ESTERASE, URINE AUTO NEGATIVE (NEGATIVE); MUCUS, URINE SMALL (NEGATIVE); NITRITE, URINE AUTO NEGATIVE (NEGATIVE); PROTEIN, URINE AUTO NEGATIVE (NEGATIVE); RBC, URINE AUTO 2 /HPF (0-3); SPECIFIC GRAVITY URINE AUTO 1.015 (1.002-1.035); SQUAMOUS EPITHELIAL CELL UR AU 12 /HPF (0-6); UROBILINOGEN, URINE AUTO 0.2 mg/dL (0.0-2.0); WBC, URINE AUTO 1 /HPF (0-3)
== END ==
LOC: M LAB REF 15:33
DX: N39.0 Urinary tract infection, site not specified (principal)

== ENCOUNTER 2018-11-14 12:00 | Day surgery (SDC) | payer OTHER ==
[~2018-11-14] VITALS: Ht 160 cm; Wt 109.5 kg
[~2018-11-14 12:00] MED LIST changes: -BACL10TA2; +BACL10TA2 PO; -TIZA2TA; +TIZA2TA PO; +VENL150C43 PO
[2018-11-14 12:29] LABS: HEMATOCRIT 38.9 % (36.0-47.0); HEMOGLOBIN 12.6 g/dl (12.0-15.5); MEAN CORPUSCULAR HGB CONC 32.4 g/dl (32.0-36.5); MEAN CORPUSCULAR VOLUME 83.5 fl (80.0-96.0); PLATELET COUNT, AUTOMATED 493 10^3/uL (150-450); RED BLOOD COUNT 4.66 10^6/uL (4.00-5.40); WHITE BLOOD COUNT 16.2 10^3/uL (4.0-10.0)
[2018-11-14] MEDS ORDERED: LR 1,000 ML IV ONE (12:45)
[2018-11-14] MEDS ORDERED: BUPIVACAINE HCL 0.25% 30 ML VIAL As Ordered ONE (12:46)
[2018-11-14] MEDS ORDERED: LIDOCAINE 2% INJ 100 MG/5 ML SDV (FOR ANES.) As Ordered ONE (13:34)
[2018-11-14] MEDS ORDERED: PROPOFOL 200 MG/20 ML VIAL As Ordered ONE (13:34)
[2018-11-14] MEDS ORDERED: ROCURONIUM BROMIDE 50 MG/5 ML VIAL As Ordered ONE (13:34)
[2018-11-14] MEDS ORDERED: MIDAZOLAM INJ 2 MG/2 ML VIAL (J2250) As Ordered ONE (13:35)
[2018-11-14] MEDS ORDERED: fentaNYL 100 MCG/2 ML INJECTION (J3010) As Ordered ONE ×2 (13:35→14:42)
[2018-11-14] MEDS ORDERED: METOCLOPRAMIDE INJ 10MG/2ML VIAL (J2765) As Ordered ONE (14:38)
[2018-11-14] MEDS ORDERED: dexameTHASONE 4 MG/ML 1ML VIAL (J1100) As Ordered ONE (14:38)
[2018-11-14] MEDS ORDERED: KETOROLAC 60 MG/2 ML VIAL (J1885) As Ordered ONE (14:56)
[2018-11-14] MEDS ORDERED: ONDANSETRON 4MG/2ML VIAL (J2405) As Ordered ONE (14:56)
[2018-11-14] MEDS ORDERED: NORCO, ANEXSIA 5/325MG TABLET (HYDROcodone/ACETAMINOPHEN) PO PRN (15:15)
[2018-11-14] MEDS ORDERED: LR 1,000 ML IV SCH ×2 (15:15→15:30)
[2018-11-14] MEDS ORDERED: ONDANSETRON 4MG/2ML VIAL (J2405) IV PRN (15:15)
[2018-11-14] MEDS: fentaNYL 100 MCG/2 ML INJECTION (J3010) IV PRN ×4 (15:20→15:35)
[2018-11-14] MEDS ORDERED: PERCOCET 5MG/325MG TAB PO PRN ×2 (15:45)
[2018-11-14] MEDS ORDERED: PERC5TAB12 PO (15:58)
[2018-11-14 16:35] VITALS: BP 115/71
--- NOTE | 2018-11-14 16:58 | RO ---
DATE OF PROCEDURE: 11/14/2018 PREOPERATIVE PAIN: Pelvic pain status-post placement of Filshie clips. POSTOPERATIVE DIAGNOSIS: Pelvic pain status-post placement of Filshie clips. PROCEDURE: Laparoscopy, removal of left Filshie clip, bilateral salpingectomy. SURGEON: Dr. Rocky Shea. ANESTHESIA: General endotracheal. ESTIMATED BLOOD LOSS: Minimal. URINE OUTPUT: 200 mL FINDINGS: Prior tubal sterilization with Filshie clips, left Filshie clip is identified on the left fallopian tube. Right Filshie clip could not be identified. The right Filshie clip was not associated with the right fallopian tube. Normal uterus and ovaries. OPERATIVE SUMMARY: The patient was taken to the operating room where general endotracheal anesthesia was induced. She was prepped and draped in a sterile fashion in the dorsal lithotomy position. Speculum was placed in the vagina. Hulka uterine tenaculum was placed and a Nava catheter was placed. A periumbilical incision was made with a scalpel. A Veress needle was placed through this incision with tenting up on the abdomen intraabdominal location. The Veress needle was assessed with the use of a saline filled syringe. Pneumoperitoneum was created. Veress needle was removed. A 5 mm trocar using Visiport placed through this incision under direct visualization. Visualization of the abdomen and pelvis revealed the findings noted above. An 8 mm and 5 mm suprapubic port were placed. Grasping instrument was used to survey the Fallopian tubes and the Fallopian tubes were grasped with a grasping instrument. A LigaSure device was used to coagulate and incise broad ligament attachments to the fallopian tube. Both fallopian tubes were removed in their entirety. The left fallopian tube was removed with the left Filshie clip. Blunt probe was used to thoroughly search the posterior cul-de-sac, ovarian fossa and pericolic gutters as well as omentum. The right Filshie clip could not be found. The pneumoperitoneum was released. All instruments were removed. Sponge, instrument and needle counts were correct. Skin was closed with #4-0 Monocryl with subcuticular sutures.
== END 2018-11-14 17:15 | disposition home or self-care (01) ==
LOC: M SDC 12:00
PROVIDERS: ATTEND Specialist
DX: R10.2 Pelvic and perineal pain (principal); G47.30 Sleep apnea, unspecified; K21.9 Gastro-esophageal reflux disease without esophagitis; J45.909 Unspecified asthma, uncomplicated; F17.210 Nicotine dependence, cigarettes, uncomplicated; Z79.899 Other long term (current) drug therapy; Z79.51 Long term (current) use of inhaled steroids; Z88.2 Allergy status to sulfonamides; Z88.0 Allergy status to penicillin; Z88.8 Allergy status to other drugs, medicaments and biological substances
CPT/HCPCS: 36415; 58661; 85027; 88302; J1100; J1885; J2250; J2405; J2765; J3010

== ENCOUNTER → 2019-02-04 | Outpatient (REF) | payer OTHER, MEDICAID ==
[~2019-02-04] MED LIST changes: +GABA-845 PO; +KETO10TAB PO; +MACR100C43 PO; +OXYB5TAB10; +PERC5TAB12 PO; +PYRI1TAB5 PO
[2019-02-04 14:40] LABS: APPEARANCE, URINE HAZY (CLEAR); BACTERIA, URINE AUTO NEGATIVE (NEGATIVE); BILIRUBIN, URINE AUTO NEGATIVE (NEGATIVE); BLOOD, URINE BLOOD NEGATIVE (NEGATIVE); COLOR, URINE YELLOW (YELLOW); GLUCOSE, URINE (UA) AUTO NEGATIVE (NEGATIVE); KETONE, URINE AUTO NEGATIVE (NEGATIVE); LEUKOCYTE ESTERASE, URINE AUTO NEGATIVE (NEGATIVE); MUCUS, URINE SMALL (NEGATIVE); NITRITE, URINE AUTO NEGATIVE (NEGATIVE); PROTEIN, URINE AUTO NEGATIVE (NEGATIVE); RBC, URINE AUTO 2 /HPF (0-3); SPECIFIC GRAVITY URINE AUTO 1.018 (1.002-1.035); SQUAMOUS EPITHELIAL CELL UR AU 2 /HPF (0-6); UROBILINOGEN, URINE AUTO 0.2 mg/dL (0.0-2.0); WBC, URINE AUTO 0 /HPF (0-3)
== END ==
LOC: M SMT 13:09
PROVIDERS: ATTEND Nurse Practitioner Family
DX: R35.0 Frequency of micturition (principal)

== ENCOUNTER → 2019-02-09 | Outpatient (REF) | payer OTHER, MEDICAID | LOC: M LAB REF 10:12 | PROVIDERS: ATTEND Physician Assistant Medical | DX: N39.0 Urinary tract infection, site not specified (principal) ==

== ENCOUNTER 2019-02-10 09:01 | Emergency (ER) | payer MEDICAID, OTHER ==
[~2019-02-10] VITALS: Ht 165.1 cm; Wt 111.1 kg
[~2019-02-10 09:01] MED LIST changes: -KETO10TAB PO; -MACR100C43 PO; -OXYB5TAB10; -PYRI1TAB5 PO
[2019-02-10] MEDS ORDERED: OXYB5TAB10 (09:07)
[2019-02-10] MEDS ORDERED: KETO10TAB PO (09:07)
[2019-02-10] MEDS ORDERED: KETOROLAC 30 MG/ML VIAL (J1885) IV ONE (09:30)
[2019-02-10] MEDS ORDERED: ONDANSETRON 4MG/2ML VIAL (J2405) IV ONE (09:30)
[2019-02-10 09:34] LABS: HEMOGLOBIN 13.1 g/dl (12.0-15.5); MEAN CORPUSCULAR HEMOGLOBIN 27.3 pg (27.0-33.0); MEAN CORPUSCULAR VOLUME 85.6 fl (80.0-96.0); PLATELET COUNT, AUTOMATED 406 10^3/uL (150-450); RED BLOOD COUNT 4.79 10^6/uL (4.00-5.40); WHITE BLOOD COUNT 11.8 10^3/uL (4.0-10.0)
[2019-02-10 10:17] LABS: ALBUMIN 3.4 GM/DL (3.2-5.2); ALT/SGPT 18 U/L (12-78); BILIRUBIN,DIRECT < 0.1 MG/DL (0.0-0.2); BILIRUBIN,TOTAL 0.1 MG/DL (0.2-1.0); BLOOD UREA NITROGEN 14 MG/DL (7-18); CALCIUM LEVEL 8.5 MG/DL (8.5-10.1); CARBON DIOXIDE LEVEL 23 MEQ/L (21-32); CHLORIDE LEVEL 108 MEQ/L (98-107); CREATININE FOR GFR 0.93 MG/DL (0.55-1.30); GLOMERULAR FILTRATION RATE > 60.0 (>60); GLUCOSE, FASTING 102 MG/DL (70-100); LIPASE 68 U/L (73-393); POTASSIUM SERUM 4.2 MEQ/L (3.5-5.1); SODIUM LEVEL 140 MEQ/L (136-145); TOTAL PROTEIN 6.8 GM/DL (6.4-8.2)
--- NOTE | 2019-02-10 10:28 | REP ---
CT ABDOMEN AND PELVIS WITHOUT CONTRAST: CT abdomen and pelvis performed without oral or IV contrast. Sagittal and coronal reconstruction images are performed. Visualized lung bases demonstrate mild fibroatelectatic change. The liver, spleen, adrenals, pancreas, and kidneys are grossly unremarkable. There is no evidence of renal or ureteral calculus. There is no evidence of hydroureteronephrosis. Gallbladder is grossly unremarkable. There is no abdominal aortic aneurysm. I see no adenopathy. There is no free air or free fluid. There is no bowel wall thickening. There is no evidence of appendicitis. I see no pelvic mass. Urinary bladder is not distended and not well evaluated. IMPRESSION: No acute abnormalities detected as discussed above. Electronically Signed by Esteban Paul MD 02/10/2019 12:34 P
[2019-02-10] MEDS ORDERED: MACR100C43 PO (12:10)
[2019-02-10] MEDS ORDERED: PYRI1TAB5 PO (12:10)
[2019-02-10] MEDS ORDERED: PHENAZOPYRIDINE 100 MG TAB PO ONE (12:15)
[2019-02-10] MEDS ORDERED: NITROFURANTOIN (MACROBID) 100 MG CAP PO ONE (12:15)
[2019-02-10 12:23] VITALS: BP 127/70
== END 2019-02-10 12:25 | disposition home or self-care (01) ==
LOC: M ED 09:01
DX: R30.0 Dysuria (principal); R10.9 Unspecified abdominal pain; R31.9 Hematuria, unspecified; Z87.440 Personal history of urinary (tract) infections; K52.839 Microscopic colitis, unspecified; F41.9 Anxiety disorder, unspecified; F32.9 Major depressive disorder, single episode, unspecified; G36.0 Neuromyelitis optica [Devic]; F17.210 Nicotine dependence, cigarettes, uncomplicated; Z88.0 Allergy status to penicillin; Z88.2 Allergy status to sulfonamides; Z88.1 Allergy status to other antibiotic agents; Z91.013 Allergy to seafood; Z79.899 Other long term (current) drug therapy
CPT/HCPCS: 74176; 80048; 80076; 81001; 83690; 84702; 85027; 96374; 96375; 99284; J1885; J2405

== ENCOUNTER → 2019-02-20 | Outpatient (REF) | payer OTHER ==
[~2019-02-20] MED LIST changes: +KETO10TAB PO; +MACR100C43 PO; +OXYB5TAB10; +PYRI1TAB5 PO
== END ==
LOC: M SFHCPLAZ 14:16
PROVIDERS: ATTEND Nurse Practitioner Family
DX: J02.9 Acute pharyngitis, unspecified (principal)

== ENCOUNTER → 2019-03-18 | Outpatient (REF) | payer OTHER, MEDICAID ==
[~2019-03-18] MED LIST changes: +DICY1CAP8 PO; +REGL10TA6 PO
[2019-03-18 18:35] LABS: APPEARANCE, URINE HAZY (CLEAR); BACTERIA, URINE AUTO NEGATIVE (NEGATIVE); BILIRUBIN, URINE AUTO NEGATIVE (NEGATIVE); BLOOD, URINE BLOOD 3+ (NEGATIVE); COLOR, URINE YELLOW (YELLOW); GLUCOSE, URINE (UA) AUTO NEGATIVE (NEGATIVE); KETONE, URINE AUTO NEGATIVE (NEGATIVE); LEUKOCYTE ESTERASE, URINE AUTO NEGATIVE (NEGATIVE); MUCUS, URINE LARGE (NEGATIVE); NITRITE, URINE AUTO NEGATIVE (NEGATIVE); PROTEIN, URINE AUTO NEGATIVE (NEGATIVE); RBC, URINE AUTO TNTC /HPF (0-3); SPECIFIC GRAVITY URINE AUTO 1.021 (1.002-1.035); SQUAMOUS EPITHELIAL CELL UR AU 1 /HPF (0-6); UROBILINOGEN, URINE AUTO 0.2 mg/dL (0.0-2.0); WBC, URINE AUTO 3 /HPF (0-3)
== END ==
LOC: M SMT 17:33
PROVIDERS: ATTEND Nurse Practitioner Family
DX: N39.3 Stress incontinence (female) (male) (principal)

== ENCOUNTER 2019-03-25 18:03 | Emergency (ER) | payer MEDICAID, OTHER ==
[~2019-03-25] VITALS: Ht 160 cm; Wt 110.9 kg
[~2019-03-25 18:03] MED LIST changes: -DICY1CAP8 PO; -REGL10TA6 PO
[2019-03-25] MEDS ORDERED: KETOROLAC 30 MG/ML VIAL (J1885) IV ONE (19:00)
[2019-03-25] MEDS ORDERED: ONDANSETRON 4MG/2ML VIAL (J2405) IV ONE (19:00)
[2019-03-25] MEDS ORDERED: NS 1,000 ML IV ONE (19:00)
[2019-03-25 20:15] LABS: BASO # 0.1 10^3/uL (0.0-0.2); BASO % 0.9 % (0.0-1.0); EOS # 0.4 10^3/uL (0.0-0.50); EOS % 2.5 % (0.0-3.0); HEMATOCRIT 37.1 % (36.0-47.0); LYMPH # 3.3 10^3/uL (1.5-4.5); MEAN CORPUSCULAR HEMOGLOBIN 27.8 pg (27.0-33.0); MEAN CORPUSCULAR HGB CONC 32.3 g/dl (32.0-36.5); MEAN CORPUSCULAR VOLUME 85.9 fl (80.0-96.0); MONO # 1.3 10^3/uL (0.0-0.8); MONO % 9.2 % (0.0-5.0); NEUTROPHILS # 8.7 10^3/uL (1.8-7.7); NEUTROPHILS % 62.9 % (36.0-66.0); PLATELET COUNT, AUTOMATED 469 10^3/uL (150-450); RED BLOOD COUNT 4.32 10^6/uL (4.00-5.40); WHITE BLOOD COUNT 13.8 10^3/uL (4.0-10.0)
[2019-03-25 20:48] LABS: ALBUMIN 3.3 GM/DL (3.2-5.2); ALT/SGPT 21 U/L (12-78); BILIRUBIN,DIRECT < 0.1 MG/DL (0.0-0.2); BILIRUBIN,TOTAL < 0.1 MG/DL (0.2-1.0); LIPASE 57 U/L (73-393); TOTAL PROTEIN 6.4 GM/DL (6.4-8.2)
--- NOTE | 2019-03-25 21:20 | REPVR ---
EXAM: US Abdomen Limited, Right Upper Quadrant EXAM DATE/TIME: 03/25/2019 5:00 PM CLINICAL HISTORY: 38 years old, female; Abdominal pain; Flank; Right upper quadrant (ruq); Additional info: Right flank pain, ruq, HX kidney stones TECHNIQUE: Imaging protocol: Real-time ultrasound of the abdomen with image documentation. Examination was focused on the right upper quadrant. COMPARISON: GALLBLADDER (LIMITED ABD) US 11/01/2016 9:31 AM FINDINGS: Liver: The visualized liver is mildly echogenic, as before, likely due to fatty change. No intrahepatic biliary duct dilation. Gallbladder: The gallbladder is unremarkable. Common bile duct: The common bile duct is 3.1 mm. Pancreas: Not visualized due to overlying bowel gas. Right kidney: The right kidney measures 9.4 cm in length. No hydronephrosis. No nephrolithiasis. IMPRESSION: 1. No acute findings. 2. Mild fatty change of the liver. 3. The pancreas was not visualized due to overlying bowel gas. Electronically signed by: Martine Landry On 03/25/2019 21:20:29 PM
[2019-03-25] MEDS ORDERED: MORPHINE 4 MG/ML 1ML VIAL/SYRINGE (J2270) IV ONE ×2 (21:30→23:00)
[2019-03-25] MEDS ORDERED: METOCLOPRAMIDE INJ 10MG/2ML VIAL (J2765) IV ONE (22:45)
[2019-03-25] MEDS ORDERED: ISOVUE-370 76% 100ML VIAL (Q9967) As Ordered ONE (23:41)
--- NOTE | 2019-03-26 01:13 | REPVR ---
EXAM: CT Abdomen and Pelvis With Contrast EXAM DATE/TIME: 03/25/2019 11:54 PM CLINICAL HISTORY: 38 years old, female; Abdominal pain; Localized; Right; Additional Info: RUQ, RLQ pain, elev WBC TECHNIQUE: Imaging protocol: Axial computed tomography images of the abdomen and pelvis with intravenous contrast. Coronal and sagittal reformatted images were created and reviewed. Radiation optimization: All CT scans at this facility use at least one of these dose optimization techniques: automated exposure control; mA and/or kV adjustment per patient size (includes targeted exams where dose is matched to clinical indication); or iterative reconstruction. Contrast material: ISOVUE 370; Contrast volume: 100 ml; Contrast route: IV; COMPARISON: CT ABD PELVIS W/O CONTRAST 02/10/2019 9:34 AM FINDINGS: Liver: Normal. No mass. Gallbladder and bile ducts: Normal. No calcified stones. No ductal dilation. Pancreas: Normal. No ductal dilation. Spleen: Normal. No splenomegaly. Adrenals: Normal. No mass. Kidneys and ureters: Normal. No hydronephrosis. Stomach and bowel: Fluid and stool in the colon consistent with diarrhea. No abnormal bowel dilatation. No abnormal bowel wall thickening. Negative for colonic diverticulitis. Appendix: Appendix is normal. Intraperitoneal space: Surgical clip in the right lower quadrant of the abdomen. Vasculature: Normal. No abdominal aortic aneurysm. Lymph nodes: Normal. No enlarged lymph nodes. Bladder: Unremarkable as visualized. Reproductive: Uterus is normal. Bones/joints: No acute fracture. No dislocation. Soft tissues: Small umbilical hernia containing fat. There is no evidence of strangulation. IMPRESSION: 1. Diarrhea of unknown etiology. 2. No evidence of bowel obstruction. Electronically signed by: Jaydon Case On 03/26/2019 01:13:00 AM
[2019-03-26] MEDS ORDERED: REGL10TA6 PO (01:28)
[2019-03-26] MEDS ORDERED: DICY1CAP8 PO (01:28)
[2019-03-26] MEDS ORDERED: DICYCLOMINE 10 MG CAP PO ONE (01:30)
[2019-03-26 01:37] VITALS: BP 115/57
--- NOTE | 2019-03-26 07:30 | REP ---
Portable chest, 10:35 p.m., single frontal view: Comparison is 12/28/2016. There is a right IJ Xpgddy-H-Yufm catheter with the tip in the superior vena cava in satisfactory position. There is no pneumothorax or hemothorax. There are no infiltrates. There is a 1.5 cm nodular density in the left upper lobe, not present previously . Chest CT follow-up is recommended. There is a curvilinear density in the right upper lobe, not present previously. This could also be value evaluated on follow-up chest CT. Impression: Right IJ [id number]-M-Enrm as described. Bilateral upper lobe densities for which CT follow-up is recommended. Electronically Signed by Esteban Paulino MD 03/26/2019 07:21 A
[2019-04-13] MEDS ORDERED: LIDO2.5C15 TOP (13:33)
== END 2019-03-26 01:58 | disposition home or self-care (01) ==
LOC: M ED 18:03
DX: R10.9 Unspecified abdominal pain (principal); R11.0 Nausea; R91.8 Other nonspecific abnormal finding of lung field; Z95.9 Presence of cardiac and vascular implant and graft, unspecified; R19.7 Diarrhea, unspecified; Z87.442 Personal history of urinary calculi; Z72.0 Tobacco use; Z79.899 Other long term (current) drug therapy; Z91.013 Allergy to seafood; Z88.0 Allergy status to penicillin; Z88.2 Allergy status to sulfonamides; Z88.8 Allergy status to other drugs, medicaments and biological substances
CPT/HCPCS: 71045; 74177; 76705; 80047; 80076; 81001; 83690; 85025; 96374; 96375; 96376; 99284; J1885; J2270; J2405; J2765; Q9967

== ENCOUNTER → 2019-03-27 | Outpatient (REF) | payer OTHER ==
[~2019-03-27] MED LIST changes: +DICY1CAP8 PO; +REGL10TA6 PO
[2019-03-27 18:05] LABS: APPEARANCE, URINE CLEAR (CLEAR); BACTERIA, URINE AUTO NEGATIVE (NEGATIVE); BILIRUBIN, URINE AUTO NEGATIVE (NEGATIVE); BLOOD, URINE BLOOD 1+ (NEGATIVE); COLOR, URINE STRAW (YELLOW); GLUCOSE, URINE (UA) AUTO NEGATIVE (NEGATIVE); KETONE, URINE AUTO NEGATIVE (NEGATIVE); LEUKOCYTE ESTERASE, URINE AUTO NEGATIVE (NEGATIVE); NITRITE, URINE AUTO NEGATIVE (NEGATIVE); PROTEIN, URINE AUTO NEGATIVE (NEGATIVE); RBC, URINE AUTO 0 /HPF (0-3); SPECIFIC GRAVITY URINE AUTO 1.005 (1.002-1.035); SQUAMOUS EPITHELIAL CELL UR AU 0 /HPF (0-6); UROBILINOGEN, URINE AUTO 0.2 mg/dL (0.0-2.0); WBC, URINE AUTO 0 /HPF (0-3)
== END ==
LOC: M SMT 16:49
PROVIDERS: ATTEND Nurse Practitioner Women's Health
DX: R35.0 Frequency of micturition (principal)

== ENCOUNTER → 2019-05-04 | Outpatient (REF) | payer OTHER ==
[~2019-05-04] MED LIST changes: +LIDO2.5C15 TOP; -OMEP40CA2; -OMEP40CA2 PO; +OMEP40CA97; +OMEP40CA97 PO; +ONDA-83; +ONDA-83 PO; -ONDA4TAB5; -ONDA4TAB5 PO
[2019-05-04 17:49] LABS: FOLLICLE STIMULATING HORMONE 1.7 mIU/mL; LUTEINIZING HORMONE 1.2 mIU/mL
== END ==
LOC: M SFHCPLAZ 15:23
PROVIDERS: ATTEND Family Medicine
DX: R23.2 Flushing (principal)

== ENCOUNTER → 2019-05-18 | Outpatient (CLI) | payer OTHER ==
[~2019-05-18] MED LIST changes: +OMEP40CA2; +OMEP40CA2 PO; -OMEP40CA97; -OMEP40CA97 PO; -ONDA-83; -ONDA-83 PO; +ONDA4TAB5; +ONDA4TAB5 PO
--- NOTE | 2019-05-18 14:52 | REP ---
HIDA SCAN WITH GALLBLADDER EJECTION FRACTION: Following the intravenous administration of 6.6 millicuries technetium 99m mebrofenin, multiple images of the right upper quadrant are performed for 1 hour. Gallbladder is visualized at 15 minutes postinjection. There is biliary to bowel transit at 40 minutes post injection with no scintigraphic evidence of cholecystitis. At the 1-hour nadira, 8 ounces of Ensure Enlive is ingested and further imaging performed for one hour. Gallbladder activity is measured. The gallbladder ejection fraction is 45%, which is normal. IMPRESSION: Normal gallbladder ejection fraction. Electronically Signed by Esteban Paul MD 05/19/2019 01:57 P
== END ==
LOC: M RAD 07:23
PROVIDERS: ATTEND Family Medicine
DX: R10.11 Right upper quadrant pain (principal)
CPT/HCPCS: 78227; A9537; J2805

== ENCOUNTER 2019-06-04 10:30 | Outpatient (RCR) | payer OTHER | END 2019-06-08 | LOC: M PT 10:30 | PROVIDERS: ATTEND Nurse Practitioner Family | DX: Z51.89 Encounter for other specified aftercare (principal); R35.0 Frequency of micturition; N39.3 Stress incontinence (female) (male) ==

== ENCOUNTER 2019-08-20 13:00 | Outpatient (RCR) | payer OTHER ==
[~2019-08-20 13:00] MED LIST changes: -OMEP40CA2; -OMEP40CA2 PO; +OMEP40CA97; +OMEP40CA97 PO
== END 2019-09-08 ==
LOC: M PT 13:00
PROVIDERS: ATTEND Nurse Practitioner Family
DX: R35.0 Frequency of micturition (principal); N39.3 Stress incontinence (female) (male)

== ENCOUNTER → 2020-01-29 | Outpatient (REF) | payer OTHER ==
[~2020-01-29] MED LIST changes: +CYCL-707 PO; -CYCL10TA PO; +ONDA-83; +ONDA-83 PO; -ONDA4TAB5; -ONDA4TAB5 PO
[2020-01-29 12:56] LABS: ALBUMIN 3.6 GM/DL (3.2-5.2); ALT/SGPT 40 U/L (12-78); BILIRUBIN,TOTAL 0.2 MG/DL (0.2-1.0); BLOOD UREA NITROGEN 11 MG/DL (7-18); CALCIUM LEVEL 9.2 MG/DL (8.5-10.1); CARBON DIOXIDE LEVEL 29 MEQ/L (21-32); CHLORIDE LEVEL 104 MEQ/L (98-107); CHOLESTEROL LEVEL 230 MG/DL (<200); CHOLESTEROL RISK RATIO 5.227 (<5); CREATININE FOR GFR 0.98 MG/DL (0.55-1.30); GLOMERULAR FILTRATION RATE > 60.0 (>60); GLUCOSE, FASTING 111 MG/DL (70-100); HDL CHOLESTEROL 44 MG/DL (>40); LDL CHOLESTEROL 125 MG/DL (<100); NON-HDL-C 186 MG/DL; POTASSIUM SERUM 4.9 MEQ/L (3.5-5.1); SODIUM LEVEL 140 MEQ/L (136-145); TOTAL 25(OH) VITAMIN D 15.5 NG/ML (30.0-100.0); TOTAL PROTEIN 6.6 GM/DL (6.4-8.2); TRIGLYCERIDES LEVEL 307 MG/DL (<150)
== END ==
LOC: M SFHCPLAZ 10:16
PROVIDERS: ATTEND Family Medicine
DX: Z00.00 Encounter for general adult medical examination without abnormal findings (principal); Z13.220 Encounter for screening for lipoid disorders; Z13.1 Encounter for screening for diabetes mellitus; E55.9 Vitamin D deficiency, unspecified

== ENCOUNTER → 2020-02-28 | Outpatient (CLI) | payer OTHER, MEDICAID ==
[~2020-02-28] MED LIST changes: +[UNRECOGNIZED DRUG - OTHER]
== END ==
LOC: M LABSMTC 09:56
PROVIDERS: ATTEND Anesthesiology
DX: Z01.818 Encounter for other preprocedural examination (principal); Z11.59 Encounter for screening for other viral diseases
CPT/HCPCS: C9803; U0003

== ENCOUNTER 2020-03-02 11:49 | Day surgery (SDC) | payer OTHER ==
[~2020-03-02] VITALS: Ht 160 cm; Wt 120.6 kg
[~2020-03-02 11:49] MED LIST changes: +LR 1,000 ML IV ONE; +LevoFLOXacin IV 500 MG in IV 1 EA IV ONE
[2020-03-02] MEDS ORDERED: LIDOCAINE 1% SDV 30ML VIAL As Ordered ONE (15:03)
[2020-03-02] MEDS ORDERED: BUPIVACAINE HCL 0.25% 30ML VIAL As Ordered ONE (15:04)
[2020-03-02] MEDS ORDERED: ONDANSETRON 4MG/2ML VIAL As Ordered ONE (15:07)
[2020-03-02] MEDS ORDERED: ROCURONIUM BROMIDE 50 MG/5 ML VIAL As Ordered ONE ×2 (15:07→16:35)
[2020-03-02] MEDS ORDERED: dexameTHASONE 4 MG/ML 1ML VIAL (J1100 PER 1MG) As Ordered ONE (15:07)
[2020-03-02] MEDS ORDERED: LIDOCAINE 2% 100MG/5ML SDV (FOR ANES.) As Ordered ONE (15:07)
[2020-03-02] MEDS ORDERED: propofoL 200 MG/20 ML VIAL As Ordered ONE (15:07)
[2020-03-02] MEDS ORDERED: fentaNYL 250 MCG/5 ML INJECTION (J3010) As Ordered ONE (15:08)
[2020-03-02] MEDS ORDERED: MIDAZOLAM INJ 2MG/2ML VIAL (J2250 PER 1MG) As Ordered ONE ×2 (15:08→15:09)
[2020-03-02] MEDS ORDERED: KETOROLAC 60MG 2ML VIAL As Ordered ONE (15:15)
[2020-03-02] MEDS ORDERED: SUGAMMADEX SODIUM 500 MG/5 ML VIAL (BRIDION) As Ordered ONE ×2 (16:35→17:17)
[2020-03-02] MEDS ORDERED: oxyCODONE 5MG TAB As Ordered ONE (17:51)
[2020-03-02] MEDS: oxyCODONE 5MG TAB PO PRN ×2 (17:57→18:29)
[2020-03-02] MEDS ORDERED: ONDANSETRON 4MG/2ML VIAL IV PRN (18:00)
[2020-03-02] MEDS ORDERED: LR 1,000 ML IV SCH (18:00)
[2020-03-02] MEDS ORDERED: fentaNYL 100 MCG/2 ML INJECTION (J3010) IV PRN (18:00)
[2020-03-02 19:00] VITALS: BP 130/79
--- NOTE | 2020-03-04 10:28 | ROOPDOC ---
[facility] Report Of Operation Report of Operation DATE OF PROCEDURE: 03/02/20 PREPROCEDURE DIAGNOSES: umbilical hernia, morbid obesity (BMI 47.1). POSTPROCEDURE DIAGNOSES: umbilical hernia, diastases, morbid obesity. PROCEDURE: Robotic Assisted Laparoscopic umbilical hernia repair (rTAPP, 9 cm Parietex composite mesh). SURGEON: Horacio Love MD CLINICAL PROJECT MANAGER: ANESTHESIA: General Anesthesia. ESTIMATED BLOOD LOSS: Approximately 10 mL. COMPLICATIONS: none. PROCEDURE NOTE: 1.5x1.5 cm predominant defect with 2 smaller defects below it within 2 cms of the inferior edge of the umbilical defect. DESCRIPTION OF PROCEDURE: Patient was given a dose of 2 g Ancef IV preoperatively for wound prophylaxis. She was brought to the operating room and placed supine on the table. Compression boots and teds were placed on both lower extremities for DVT prophylaxis. General endotracheal anesthesia was administered without any complication. Her left arm was tucked, the right arm placed on an arm board, the table was flexed to extend the space between her costal cartilages and ASIS. All bony prominences were padded. The abdomen was prepped from xiphoid to pubis and table to table with chlorhexidine. The patient was draped in the usual sterile fashion.Timeout were performed using both preinduction and pre-incision safety checklist to verify correct patient, procedure site and additional clinical information prior to beginning the procedure. Entry into the abdomen done through a small incision on the left upper quadrant area. The fascia was elevated and Veress needle inserted in a controlled fashion. Proper position was confirmed with a saline drop test. The abdomen was insufflated to a pressure of 15 mmHg. Under direct visualization of the laparoscope a 8 mm robotic port was placed into the abdomen. The insertion site as well as the Veress needle location was inspected for injury and none was found. Patient was then placed in a slight right lateral decubitus position to move the bowel away from the left abdominal wall. Under direct visualization an 8 mm operative robotic trocar was placed at the left lower quadrant in the same anterior axillary line and in between this 2 ports an 8 mm robotic camera port was placed. The Lontra Micki robot tower was maneuvered in place to center on the patient's hernia. The trochars were docked onto the robot arms with an instrument trocar on the left lower quadrant port a 30 camera facing upwards on the middle port and an 8 mm trocar inserted through the 12 mm port on the left upper quadrant area. Positioning of the tower and robotic arms were inspected and once satisfied, I scrubbed in and to control of the robotic arms and camera at the surgeon's console. The presence of an umbilical hernia is noted in the tongue of omentum sticking through the defect. Internally may be at best 1.5 cm in size. There was widely diastases of the rectus muscle. The abdomen was palpated along the midline to look for other possible herniations and no obvious additional herniations were found along the epigastric line. A preperitoneal pocket was then created starting 5 cm from the umbilicus laterally in the left side and extending this superiorly and inferiorly taking down partly at the falciform ligament superiorly. We continued the pocket and brought down the preperitoneal fat tissue invaginating into the fascial defect at the umbilicus and divided the attachment to the bottom of the skin cleft. There were 2 additional smaller defects below the umbilicus with preperitoneal fat tissue that are both only a few millimeters in size. This is within an area roughly about 2 cm from the umbilicus. I continued the preperitoneal dissection until we have an adequate space around the umbilical fascial defect at least 5 cm circumferentially. After this hemostasis was checked. The umbilical fascial defect and likewise partly the diastases was closed with a 0V LOC in a running stitch. Which I started roughly 5 cm below the umbilicus and extended to 5 cm above the umbilicus with plication of the diastases. The bottom of the umbilical skin cleft was incorporated with the closure to bring down the umbilicus also to decrease the space to prevent seroma. I came down to a pressure of 10 mmHg. After this I measured my preperitoneal space and have got about a 10 cm space all around. I chose a 9 cm prior attacks composite mesh. This was rolled to be accommodated through the p orts and placed intra-abdominally by my radiology assistant. This was unrolled at the preperitoneal pocket and centered on the defect. I used interrupted sutures of 2-0 Vicryl mainly at the cardinal corners to fix this in place. After this the peritoneal pocket was closed with 30V LOC in a running fashion. The abdomen was surveyed for any other pathology, signs of injury, bleeding. Once satisfied the abdomen was deflated all ports were removed. The port site incisions were closed at the skin level with 4-0 Monocryl in a subcuticular fashion. Dermabond was used to cover the incisions. Patient tolerated the procedure well. She was awakened, extubated. His Nava catheter was removed. He was brought to the recovery room stable HORACIO LOVE MD Mar 04, 2020 09:14
[2020-06-16] MEDS ORDERED: DOXY100C PO (08:25)
[2020-06-16] MEDS ORDERED: PRED20TA (08:25)
[2020-06-16] MEDS ORDERED: FLUC150T (08:25)
[2020-06-16] MEDS ORDERED: FERR325T3 PO (10:05)
== END 2020-03-02 19:03 | disposition home or self-care (01) ==
LOC: M SDC 11:49
PROVIDERS: ATTEND Surgery
DX: K42.9 Umbilical hernia without obstruction or gangrene (principal); M62.08 Separation of muscle (nontraumatic), other site; K58.8 Other irritable bowel syndrome; J45.909 Unspecified asthma, uncomplicated; G47.30 Sleep apnea, unspecified; K21.9 Gastro-esophageal reflux disease without esophagitis; F17.218 Nicotine dependence, cigarettes, with other nicotine-induced disorders; F32.9 Major depressive disorder, single episode, unspecified; F41.9 Anxiety disorder, unspecified; Z88.0 Allergy status to penicillin; Z88.2 Allergy status to sulfonamides; Z88.8 Allergy status to other drugs, medicaments and biological substances; Z91.013 Allergy to seafood
CPT/HCPCS: 49652; C1781; J1100; J1885; J1956; J2250; J2405; J3010

== ENCOUNTER 2020-07-13 15:47 | Emergency (ER) | payer MEDICAID, OTHER ==
[~2020-07-13] VITALS: Ht 160 cm; Wt 120.4 kg
[~2020-07-13 15:47] MED LIST changes: +DOXY100C PO; +FERR325T3 PO; +FLUC150T; -LR 1,000 ML IV ONE; -LevoFLOXacin IV 500 MG in IV 1 EA IV ONE
[2020-07-13 16:43] LABS: BASO # 0.1 10^3/uL (0.0-0.2); BASO % 0.5 % (0.0-1.0); EOS # 0.4 10^3/uL (0.0-0.5); EOS % 2.5 % (0.0-3.0); HEMATOCRIT 36.9 % (36.0-47.0); HEMOGLOBIN 11.2 g/dl (12.0-15.5); LYMPH # 3.1 10^3/uL (1.5-5.0); LYMPH % 21.5 % (24.0-44.0); MEAN CORPUSCULAR HEMOGLOBIN 24.9 pg (27.0-33.0); MEAN CORPUSCULAR HGB CONC 30.4 g/dl (32.0-36.5); MEAN CORPUSCULAR VOLUME 82.2 fl (80.0-96.0); MONO # 1.4 10^3/uL (0.0-0.8); MONO % 9.4 % (0.0-5.0); NEUTROPHILS # 9.5 10^3/uL (1.5-8.5); NEUTROPHILS % 65.4 % (36.0-66.0); PLATELET COUNT, AUTOMATED 497 10^3/uL (150-450); RED BLOOD COUNT 4.49 10^6/uL (4.00-5.40); WHITE BLOOD COUNT 14.5 10^3/uL (4.0-10.0)
--- NOTE | 2020-07-13 17:01 | REP ---
INDICATION: SOB. COMPARISON: 03/25/2019 FINDINGS: The technique utilized in obtaining the radiograph has magnified the cardiac silhouette and accentuated the interstitial markings. The superior mediastinal structures are midline. The cardiac silhouette is unremarkable in size, shape, and position. The diaphragmatic surfaces of the lungs are regular, and the costophrenic angles are clear. The pulmonary angel are clear. The imaged osseous structures are intact. The tip of the MediPort device is again seen in the superior vena cava. IMPRESSION: There is no acute cardiopulmonary disease. <Electronically signed by Nima Steinberg > 07/13/20 [id number]
[2020-07-13] MEDS ORDERED: MORPHINE 2 MG/ML 1ML VIAL (J2270) IV ONE (17:15)
[2020-07-13] MEDS ORDERED: ONDANSETRON 4MG/2ML VIAL IV ONE (17:15)
[2020-07-13 17:29] LABS: ALBUMIN 3.3 GM/DL (3.2-5.2); ALT/SGPT 18 U/L (12-78); BILIRUBIN,DIRECT < 0.1 MG/DL (0.0-0.2); BILIRUBIN,TOTAL 0.1 MG/DL (0.2-1.0); LIPASE 55 U/L (73-393); TOTAL PROTEIN 6.5 GM/DL (6.4-8.2)
[2020-07-13] MEDS ORDERED: ISOVUE-370 76% 100ML VIAL As Ordered ONE (18:08)
--- NOTE | 2020-07-13 19:22 | REPVR ---
PROCEDURE INFORMATION: Exam: CT Angiography Chest With Contrast Exam date and time: 07/13/2020 6:19 PM Age: 40 years old Clinical indication: Chest pain; Additional info: RO pe, shortness of breath TECHNIQUE: Imaging protocol: Computed tomographic angiography of the chest with intravenous contrast. 3D rendering (Not supervised by radiologist): MIP and/or 3D reconstructed images were created by the technologist. Radiation optimization: All CT scans at this facility use at least one of these dose optimization techniques: automated exposure control; mA and/or kV adjustment per patient size (includes targeted exams where dose is matched to clinical indication); or iterative reconstruction. Contrast material: ISO 370; Contrast volume: 100 ml; Contrast route: INTRAVENOUS (IV); COMPARISON: No relevant prior studies available. FINDINGS: Pulmonary arteries: No CT evidence of acute pulmonary embolism. Aorta: No CT evidence of acute thoracic aortic dissection, thoracic aneurysm or acute intramural thoracic aortic hematoma. Lungs: Both lungs are well-aerated. Pleural space: Unremarkable. No pneumothorax. No pleural effusion. Heart: The heart size is normal. Lymph nodes: Unremarkable. No enlarged lymph nodes. Bones/joints: The bony structures of the chest are normal. Soft tissues: Unremarkable. IMPRESSION: 1. No CT evidence of acute pulmonary embolism. 2. No CT evidence of acute thoracic aortic dissection, thoracic aneurysm or acute intramural thoracic aortic hematoma. 3. Both lungs are well-aerated. 4. The bony structures of the chest are normal. Electronically signed by: Jace Levy On 07/13/2020 19:22:42 PM
--- NOTE | 2020-07-13 19:29 | REPVR ---
PROCEDURE INFORMATION: Exam: CT Abdomen And Pelvis With Contrast Exam date and time: 07/13/2020 6:19 PM Age: 40 years old Clinical indication: Abdominal pain; Additional info: Luq pain into back TECHNIQUE: Imaging protocol: Computed tomography of the abdomen and pelvis with intravenous contrast. Radiation optimization: All CT scans at this facility use at least one of these dose optimization techniques: automated exposure control; mA and/or kV adjustment per patient size (includes targeted exams where dose is matched to clinical indication); or iterative reconstruction. Contrast material: ISO 370; Contrast volume: 100 ml; Contrast route: INTRAVENOUS (IV); COMPARISON: CT ABD/PEL W/IV CONTRAST ONLY 03/25/2019 11:46 PM FINDINGS: Liver: Moderate diffuse fatty infiltration of the liver. Gallbladder and bile ducts: Normal. No calcified stones. No ductal dilation. Pancreas: Normal. No ductal dilation. Spleen: Normal. No splenomegaly. Adrenal glands: Normal. No mass. Kidneys and ureters: Normal. No hydronephrosis. Stomach and bowel: Unremarkable. No obstruction. No mucosal thickening. Appendix: No evidence of appendicitis. Intraperitoneal space: No free intraperitoneal air or free fluid. Vasculature: Unremarkable. No abdominal aortic aneurysm. Lymph nodes: Unremarkable. No enlarged lymph nodes. Urinary bladder: Unremarkable as visualized. Reproductive: A small 2.7 cm hypodense mass is present in the right uterine adnexa, likely a small right ovarian cyst. The mass has benign features with low internal attenuation of 17.5 Hounsfield units. Bones/joints: The bony structures of the abdomen and pelvis are normal. Soft tissues: Unremarkable. IMPRESSION: 1. Moderate diffuse fatty infiltration of the liver. 2. No free intraperitoneal air or free fluid. 3. The bony structures of the abdomen and pelvis are normal. 4. A small 2.7 cm hypodense mass is present in the right uterine adnexa, likely a small right ovarian cyst. The mass has benign features with low internal attenuation of 17.5 Hounsfield units. No further imaging is recommended. Reference: Abiodun et al. Management of Incidental Adnexal Findings on CT and MRI: A White Paper of the ACR Incidental Findings Committee, J Am Elaine Radiol. 2019;17(2):248-254. Electronically signed by: Jace Levy On 07/13/2020 19:29:07 PM
[2020-07-13] MEDS ORDERED: GI COCKTAIL 50ML BTL(HYOSCYAMINE/MAALOX/LIDOCAINE VISCOUS)(1:3:1) PO ONE (19:45)
[2020-07-13 20:07] VITALS: BP 121/67
--- NOTE | 2020-07-18 12:09 | ED PDOC ---
Post-Departure Follow-Up dr cornell bertrand faxed formal report of ct abd/p for fu Alexandre Orozco MD Jul 18, 2020 12:09
== END 2020-07-13 20:15 | disposition home or self-care (01) ==
LOC: M ED 15:47
DX: R10.12 Left upper quadrant pain (principal); K21.9 Gastro-esophageal reflux disease without esophagitis; G36.0 Neuromyelitis optica [Devic]; F17.210 Nicotine dependence, cigarettes, uncomplicated; Z87.442 Personal history of urinary calculi; Z91.013 Allergy to seafood; Z88.0 Allergy status to penicillin; Z88.2 Allergy status to sulfonamides; Z88.8 Allergy status to other drugs, medicaments and biological substances; Z88.1 Allergy status to other antibiotic agents; Z79.899 Other long term (current) drug therapy
CPT/HCPCS: 71045; 71275; 74177; 80047; 80076; 83605; 83690; 85025; 93041; 96374; 96375; 99285; J2270; J2405; Q9967

== ENCOUNTER → 2020-10-01 | Outpatient (REF) | payer OTHER | LOC: M LAB REF 17:17 | PROVIDERS: ATTEND Physician Assistant Medical | DX: J11.1 Influenza due to unidentified influenza virus with other respiratory manifestations (principal) ==

== ENCOUNTER → 2021-03-08 | Outpatient (REF) | payer OTHER ==
[~2021-03-08] MED LIST changes: -DOXY100C37; +DOXY1CAP62; +FIBE625T PO; +GABA-283 PO; -GABA-845 PO; +LIDO1CRE42 TOP; -LIDO2.5C15 TOP; +OMEP40CA4; +OMEP40CA4 PO; -OMEP40CA97; -OMEP40CA97 PO
== END ==
LOC: M LAB REF 11:22
PROVIDERS: ATTEND Physician Assistant
DX: J02.9 Acute pharyngitis, unspecified (principal); R50.9 Fever, unspecified; R53.83 Other fatigue

== ENCOUNTER → 2021-06-21 | Outpatient (REF) | payer OTHER ==
[~2021-06-21] MED LIST changes: -DOXY100C PO; +DOXY100C3 PO
[2021-06-21 12:27] LABS: RSV AMPLIFICATION NEGATIVE (NEGATIVE)
== END ==
LOC: M LAB REF 11:14
PROVIDERS: ATTEND Physician Assistant
DX: R05.9 Cough, unspecified (principal)

== ENCOUNTER 2021-08-12 10:08 | Emergency (ER) | payer MEDICAID, OTHER ==
[~2021-08-12] VITALS: Ht 160 cm; Wt 127.2 kg
[~2021-08-12 10:08] MED LIST changes: +DOXY-443; -DOXY1CAP62; +SODIUM CHLORIDE 0.9% INJ 10 ML SYR IV SCH
--- OUTSIDE RECORDS SUMMARY | 2021-08-12 10:16 | CCD ---
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 70107692 Problem Neuropathy G62.9 Active confirmed 594491459 Problem Active asthma J45.909 Active confirmed 53351 3004 Problem Vitamin D deficiency E55.9 Active confirmed 99755441 Problem Smoker F17.200 Active confirmed 70996604 Problem Unsteadiness on feet R26.81 Active confirmed 798244899 Problem Sciatica of left side M54.32 Active confirmed 77252091 Problem Chronic allergic rhinitis J30.9 Active confirmed 23275013 Problem Cigarette nicotine dependence without complication F17.210 Active confirmed 95700103 Problem Body mass index (BMI) of 40.0-44.9 in adult Z68.41 Active confirmed 282919032 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 Active confir med 306795687 Problem Morbid (severe) obesity due to excess calories E66 .01 Active confirmed 128925541 Problem Genital herpes simplex, unspecified site A60.00 Active confirmed 08821295 Problem Bilateral carpal tunnel syndrome G56.03 Active conf irmed 90258243 Problem Stress incontinence (female) (male) N39.3 Acti ve confirmed 06664943 Problem Urinary frequency R35.0 Active confirmed 16 4743380 ALLERGIES Allergen (clinical drug ingredient) Drug/Non Drug Allergy do cumented on EMR Reaction Allergy Type Onset Date Status Sulfasalazine Sulfa Antibiotics Hives Drug Allergy Ac tive Penicillin (For Allergies Use Only) Hives Drug Allerg y Active Eicosapentaenoic Acid Fish-derived Products Hives Drug Allergy Active bupropion Wellbutrin SR([facility] Code:[address]-28) Chest pain Drug Bonifacio rgy Active methotrexate Methotrexate([facility] Code:[address]-02) Rash Drug All ergy Active ENCOUNTERS from 1982 to 2021-07-07 Encounter Location Date [facility] [address] [phone] [place] [address] Jun, Irma Salazari IMMUNIZATIONS Vaccine Route Administration Date Status Pneumococcal Adult 0.5mL Pneumovax 23 IM Intramuscular March 08, 2017 Administered TDAP 0.5mL (Boostrix) IM Intramuscular January 27, 2020 Administe red Influenza 6mo & up Fluzone IM Intramuscular May 14, 2017 Admi nistered Influenza 6mo & up Fluzone IM Intramuscular Jun 14, 2016 Admi nistered SOCIAL HISTORY Tobacco Use: Social History Observation Description Date Details (start date - stop date) Former Smoker Sex Assigned At : Social History Observation Description Sex Assigned At Unknown Education: Question Answer Notes Level of Education: Finished College Audit Question Answer Notes Total Score: 0 Interpretation: Alcohol Education Language: Question Answer Notes Languages spoken: Gabonese Sexual Hx: Question Answer Notes Had sex in the last 12 months (vaginal, oral, or anal)? Yes LMP: 08/13/18 Have you ever had an STD? Yes Prevention Strategies discussed: Other with Men only Use protection? No Other? No Herpes? Yes GC? No Chlamydia? No Drug and Alcohol Question Answer Notes Total Score: 0 Interpretation: No problems reported Alcohol Screening: Question Answer Notes Did you have a drink containing alcohol in the past year? No Points 0 Interpretation Negative BMI Care Goal Follow-Up Question Answer Notes Above Normal BMI Follow-Up Giving encouragement to exercise Tobacco Use: Question Answer Notes Are you a: former smoker How long has it been since you last smoked? < 1 month REASON FOR REFERRAL No Information VITAL SIGNS No information MEDICATIONS Medication SIG (Take, Route, Frequency, Duration) Notes Start Da te End Date Status Nicotine Step 3 7 MG/24HR 1 patch to skin Transdermal Once a day for 30 day(s) Not-Taking Ventolin HFA 108 (90 Base) MCG/ACT 2 puffs as needed I nhalation every 4-6 hrs prn sob for 30 Active Zofran 4 MG 1 tablet Orally q8hrs prn nausea/vomiting for 20 Active riTUXimab-abbs 100 MG/10ML as directed Intravenous Active IBU 400 MG 1 tablet with food or milk as needed Orally Three times a day Active Imitrex 50 MG 1 tablet as needed Orally at first onset of migraine and second in 30 min if not resolved. MDD 2 , MWD 2 , MMD 8 for 16 Active Drisdol 1.25 MG (96862 UT) 1 capsule Orally Once a week for 90 d ays Feb, Active Venlafaxine HCl ER 150 MG 1 capsule with food Orally Once a day Oct, Active Omeprazole 40 MG 1 capsule Orally Once a day for 30 days Active Baclofen 10 MG TAKE ONE TABLET BY MOUTH THREE TIMES A DAY Oral for 30 Active Arnuity Ellipta 100 MCG/ACT 1 puff Inhalation Once a day for 30 Active Gabapentin 800 MG 1 tablet Orally Three times a day for 30 Active May Have - please dispense leanne wrist sp ints without thumb spica L and R wrist Nightly for 99 months January, Active Loratadine 10 MG 1 tablet Orally Once a day for 30 Active PROCEDURES No Information RESULTS No Results REASON FOR VISIT Omeprazole, Loratidine MEDICAL (GENERAL) HISTORY Type Description Date Medical History Asthma- 3 yrs prev PCP, Gabriela anderson, on advair for 3 yrs- Nl spirometry in 11/18 Medical History Neuromylitis optica/optic neuritis Medical History Seasonal allergies- many yrs ago seen by building official Medical History 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 Medical History Hx of cervical cancer s/p cr yo- Dr Guzmán-she will make f/u appt Surgical History Tubal Ligation 11/2007 Surgical History [facility] port Surgical History Tubal ligation again.first one failed Surgical History cystoscopy 04/02/2019 Surgical History carpal tunnel surgery 06/2019 Hospitalization History [facility] for PNA 2009 Goals Section No Information Health Concerns No Information MEDICAL EQUIPMENT No Information MENTAL STATUS No Information FUNCTIONAL STATUS No Information ASSESSMENTS No Information PLAN OF TREATMENT Medication Medication Name Sig Start Date Stop Date Ventolin HFA 108 (90 Base) MCG/ACT 2 puffs as needed I nhalation every 4-6 hrs prn sob for 30 Gabapentin 800 MG 1 tablet Orally Three times a day for 30 Arnuity Ellipta 100 MCG/ACT 1 puff Inhalation Once a day for 30 Imitrex 50 MG 1 tablet as needed Orally at first onset of migraine and second in 30 min if not resolved. MDD 2 , MWD 2 , MMD 8 for 16 Loratadine 10 MG 1 tablet Orally Once a day for 30 Omeprazole 40 MG 1 capsule Orally Once a day for 30 days Insurance Providers Payer Name Payer Address Payer Phone Insured Name Patient Relati onship to Insured Coverage Start Date Coverage End Date [facility] [employer] [facility] [address] [facility] [id number] GEORGE CHOWDHURY self
--- OUTSIDE RECORDS SUMMARY | 2021-08-12 10:16 | CCD ---
Author Author [facility] Organization [facility] Address Unknown Phone Unavailable Care Team Providers Care Level Vial Inspector And Tester Name Role Phone Aleks BARRAGAN MD Unavailable Unavailable Aleks BARRAGAN MD Unavailable Unavailable Aleks BARRAGAN MD Unavailable Unavailable Aleks BARRAGAN MD Unavailable Unavailable Aleks BARRAGAN MD Unavailable Unavailable Aleks BARRAGAN MD Unavailable Unavailable Aleks BARRAGAN MD Unavailable Unavailable Aleks BARRAGAN MD Unavailable Unavailable Aleks BARRAGAN MD Unavailable Unavailable Aleks BARRAGAN MD Unavailable Unavailable Aleks BARRAGAN MD Unavailable Unavailable Aleks BARRAGAN MD Unavailable Unavailable Aleks BARRAGAN MD Unavailable Unavailable Aleks BARRAGANA Unavailable Unavailable BARRAGAN, C SANJANA Unavailable Unavailable BARRAGAN, C SANJANA Unavailable Unavailable BARRAGAN, C SANJANA Unavailable Unavailable BARRAGAN, C SANJANA MD Unavailable Unavailable BARRAGAN, C SANJANA MD Unavailable Unavailable BARRAGAN, C SANJANA MD Unavailable Unavailable BARRAGAN, C SANJANA MD Unavailable Unavailable BARRAGAN, C SANJANA MD Unavailable Unavailable BARRAGAN, C SANJANA MD Unavailable Unavailable BARRAGAN, C SANJANA MD Unavailable Unavailable Josefina Ham Unavailable Unavailable Wild Braswell NP Unavailable Unavailable Tavo Ernandez Unavailable [phone] Tavo Ernandez Unavailable [phone] Tavo Ernandez Unavailable [phone] Tavo Ernandez Unavailable [phone] Tavo Ernandez Unavailable [phone] Tavo Ernandze Unavailable [phone] Re-disclosure Warning The records that you are about to access may contain information from federally-assisted alcohol or drug abuse programs. If such information is present, then the following federally mandated warning applies: This information has been disclosed to you from records protected by federal confidentiality rules (42 CFR part 2). The federal rules prohibit you from making any further disclosure of this information unless further disclosure is expressly permitted by the written consent of the person to whom it pertains or as otherwise permitted by 42 CFR part 2. A general authorization for the release of medical or other information is NOT sufficient for this purpose. The Federal rules restrict any use of the information to criminally investigate or prosecute any alcohol or drug abuse patient.The records that you are about to access may contain highly sensitive health information, the redisclosure of which is protected by Article 27-F of the [facility] Public Health law. If you continue you may have access to information: Regarding HIV / AIDS; Provided by facilities licensed or operated by the [facility] Office of Mental Health; or Provided by the [facility] Office for People With Developmental Disabilities. If such information is present, then the following [facility] mandated warning applies: This information has been disclosed to you from confidential records which are protected by state law. State law prohibits you from making any further disclosure of this information without the specific written consent of the person to whom it pertains, or as otherwise permitted by law. Any unauthorized further disclosure in violation of state law may result in a fine or longterm sentence or both. A general authorization for the release of medical or other information is NOT sufficient authorization for further disc losure. Family History Family Member Name Family Member Gender Family Member Status Date o f Status Description Data Source(s) Unknown Unknown Problem [facility] ([facility]) Unknown Unknown Problem [facility] ([facility]) Encounters Encounter Providers Location Date Indications Data Source(s ) Outpatient Attender: Wild Braswell NP 2020 09:18:59 AM EST - 07/24/2021 11:50:15 AM EST [facility] ([facility] ) Outpatient Attender: SANJANA BARRAGAN MD 07/14 07:58:07 AM EDT - 07/14/2021 08:42:07 AM EDT [facility] ([facility] ) Unknown [address] [facility] [address] 07/06/2021 12:00:00 AM EDT eCW1 ([facility]) Outpatient Admitter: Anca Mayfielder: Anca Ham 06/15/2021 12:00:00 AM EDT Anemia, unspecified [facility] Anemia, unspecified Unknown [address] [facility] [address] 03/14/2021 12:00:00 AM EDT eCW1 ([facility]) Outpatient Attender: Tavo Ernandez 11/09 12:53:56 PM EST - 11/09/2020 01:40:21 PM EST [facility] ([facility] ) Outpatient 10/19/2020 08:48:51 AM EST - 020 08:51:30 AM EST [facility] ([facility]) Unknown [address] [facility] [address] 07/26/2020 12:00:00 AM EST eCW1 ([facility]) Immunizations Vaccine Date Status Description Data Source(s) COVID-19 VACCINE Moderna 12/28/2020 12:00:00 AM EDT completed [facility] Vaccine Series Complete: YESThis Data wa s Submitted to [facility]. COVID-19 VACC,MRNA(MODERNA)/PF 12/28/2020 12:00:00 AM EDT completed [facility] COVID-19 VACCINE Moderna 12/02/2020 12:00:00 AM EDT completed [facility] Vaccine Series Complete: NOThis Data was Submitted to [facility]. COVID-19 VACCINE, MRNA-[id number], LNP-S (MODERNA)/PF 12/02/2020 1 2:00:00 AM EDT completed [facility] Medications Medication Brand Name Start Date Product Form Dose Route Admi nistrative Instructions Pharmacy Instructions Status Indications Reaction Description Data Source(s) 90 mcg/actuation 08/05/2021 12:00:00 AM EST HFA aerosol inha ler 8 INHALE 1-2 PUFFS BY MOUTH EVERY 4-6 HOURS NEEDED WHEEZING FOR 7 DAYS INHALE 1-2 PUFFS BY MOUTH EVERY 4-6 HOURS NEEDED WHEEZING FOR 7 DAYS SOLD: 08/07/2021 [facility] 20 mg 07/24/2021 12:00:00 AM EST tablet 10 TAKE TWO TABLETS BY MOUTH EVERY DAY FOR 5 DAYS TAKE TWO TABLETS BY MOUTH EVERY DAY FOR 5 DAYS SOLD: [facility] 750 mg 07/24/2021 12:00:00 AM EST tablet 7 TAKE ONE TABLET BY MOUTH EVERY DAY FOR 7 DAYS TAKE ONE TABLET BY MOUTH EVERY DAY FOR 7 DAYS SOLD: 07/25/2021 [facility] 20 mg 07/14/2021 12:00:00 AM EDT tablet 10 TAKE TWO TABLETS BY MOUTH EVERY DAY FOR 5 DAYS TAKE TWO TABLETS BY MOUTH EVERY DAY FOR 5 DAYS SOLD: [facility] 40 mg 07/08/2021 12:00:00 AM EDT capsule,delayed release (DR/EC) 30 TAKE ONE CAPSULE BY MOUTH EVERY DAY CAPSULE FOR 30 DAYS TAKE ONE CAPSULE BY MOUTH EVERY DAY CAPSULE FOR 30 DAYS SOLD: 07/09/2021 [facility] 10 mg 07/08/2021 12:00:00 AM EDT tablet 30 TAKE ONE TABLET BY MOUTH EVERY DAY TAKE ONE TABLET BY MOUTH EVERY DAY SOLD: 07/09/2021 [facility] 40 mg 07/08/2021 12:00:00 AM EDT capsule,delayed release (DR/EC) 30 TAKE ONE CAPSULE BY MOUTH EVERY DAY CAPSULE FOR 30 DAYS TAKE ONE CAPSULE BY MOUTH EVERY DAY CAPSULE FOR 30 DAYS SOLD: 08/07/2021 [facility] 10 mg 07/08/2021 12:00:00 AM EDT tablet 30 TAKE ONE TABLET BY MOUTH EVERY DAY TAKE ONE TABLET BY MOUTH EVERY DAY SOLD: 08/07/2021 [facility] 90 mcg/actuation 07/07/2021 12:00:00 AM EDT HFA aerosol inha ler 8 INHALE TWO PUFFS BY MOUTH FOUR TIMES A DAY NEEDED INHALE TWO PUFFS BY MOUTH FOUR TIMES A DAY NEEDED SOLD: 07/07/2021 [facility] 20 mg 07/07/2021 12:00:00 AM EDT tablet 5 TAKE ONE TABLET BY MOUTH EVERY DAY FOR 5 DAYS TAKE ONE TABLET BY MOUTH EVERY DAY FOR 5 DAYS SOLD: 07/07/2021 [facility] 100 mg 07/07/2021 12:00:00 AM EDT capsule 14 TAKE ONE CAPSULE BY MOUTH TWICE A DAY FOR 7DAYS TAKE ONE CAPSULE BY MOUTH TWICE A DAY FOR 7DAYS SOLD: 07/07/2021 [facility] 150 mg 06/12/2021 12:00:00 AM EDT capsule,extended releas e 24hr 30 TAKE ONE CAPSULE BY MOUTH EVERY MORNING TAKE ONE CAPSULE BY MOUTH EVERY MORNING SOLD: 06/13/2021 [facility] 150 mg 05/18/2021 12:00:00 AM EDT capsule,extended releas e 24hr 30 TAKE ONE CAPSULE BY MOUTH EVERY MORNING TAKE ONE CAPSULE BY MOUTH EVERY MORNING SOLD: 05/19/2021 [facility] 150 mg 04/12/2021 12:00:00 AM EDT capsule,extended releas e 24hr 30 TAKE ONE CAPSULE BY MOUTH EVERY MORNING TAKE ONE CAPSULE BY MOUTH EVERY MORNING SOLD: 04/18/2021 [facility] 250 mg 03/14/2021 12:00:00 AM EDT tablet 6 TAKE TWO TABLETS BY MOUTH AT ONCE ON THE FIRST DAY THEN TAKE ONE DAILY THEREAFTER TAKE TWO TABLETS BY MOUTH AT ONCE ON THE FIRST DAY THEN TAKE ONE DAILY THEREAFTER SOLD: 03/14/2021 [facility] 200 mg 03/08/2021 12:00:00 AM EDT capsule 21 TAKE ONE CAPSULE BY MOUTH THREE TIMES PER DAY FOR 7 DAYS TAKE ONE CAPSULE BY MOUTH THREE TIMES PE R DAY FOR 7 DAYS SOLD: 03/13/2021 [facility] 10 mg 02/27/2021 12:00:00 AM EDT tablet 90 TAKE ONE TABLET BY MOUTH THREE TIMES A DAY TAKE ONE TABLET BY MOUTH THREE TIMES A DAY SOLD: 08/07/2021 [facility] 10 mg 02/27/2021 12:00:00 AM EDT tablet 90 TAKE ONE TABLET BY MOUTH THREE TIMES A DAY TAKE ONE TABLET BY MOUTH THREE TIMES A DAY SOLD: 03/01/2021 [facility] 10 mg 02/27/2021 12:00:00 AM EDT tablet 90 TAKE ONE TABLET BY MOUTH THREE TIMES A DAY TAKE ONE TABLET BY MOUTH THREE TIMES A DAY SOLD: 05/10/2021 [facility] 90 mcg/actuation 02/02/2021 12:00:00 AM EDT HFA aerosol inha ler 18 INHALE TWO PUFFS BY MOUTH EVERY 4 TO 6 HOURS NEEDED FOR SHORTNESS OF BREATH INHALE TWO PUFFS BY MOUTH EVERY 4 TO 6 HOURS NEEDED FOR SHORTNESS OF BREATH SOLD: 02/02/2021 [facility] 90 mcg/actuation 02/02/2021 12:00:00 AM EDT HFA aerosol inha ler 18 INHALE TWO PUFFS BY MOUTH EVERY 4 TO 6 HOURS NEEDED FOR SHORTNESS OF BREATH INHALE TWO PUFFS BY MOUTH EVERY 4 TO 6 HOURS NEEDED FOR SHORTNESS OF BREATH SOLD: 06/13/2021 [facility] 90 mcg/actuation 02/02/2021 12:00:00 AM EDT HFA aerosol inha ler 18 INHALE TWO PUFFS BY MOUTH EVERY 4 TO 6 HOURS NEEDED FOR SHORTNESS OF BREATH INHALE TWO PUFFS BY MOUTH EVERY 4 TO 6 HOURS NEEDED FOR SHORTNESS OF BREATH SOLD: 05/10/2021 [facility] 90 mcg/actuation 02/02/2021 12:00:00 AM EDT HFA aerosol inha ler 18 INHALE TWO PUFFS BY MOUTH EVERY 4 TO 6 HOURS NEEDED FOR SHORTNESS OF BREATH INHALE TWO PUFFS BY MOUTH EVERY 4 TO 6 HOURS NEEDED FOR SHORTNESS OF BREATH SOLD: 07/25/2021 [facility] 40 mg 01/28/2021 12:00:00 AM EDT capsule,delayed release (DR/EC) 30 TAKE ONE CAPSULE BY MOUTH EVERY DAY TAKE ONE CAPSULE BY MOUTH EVERY DAY SOLD: 01/30/2021 [facility] 40 mg 01/28/2021 12:00:00 AM EDT capsule,delayed release (DR/EC) 30 TAKE ONE CAPSULE BY MOUTH EVERY DAY TAKE ONE CAPSULE BY MOUTH EVERY DAY SOLD: 06/02/2021 [facility] 40 mg 01/28/2021 12:00:00 AM EDT capsule,delayed release (DR/EC) 30 TAKE ONE CAPSULE BY MOUTH EVERY DAY TAKE ONE CAPSULE BY MOUTH EVERY DAY SOLD: 04/03/2021 [facility] 10 mg 01/28/2021 12:00:00 AM EDT tablet 30 TAKE ONE TABLET BY MOUTH EVERY DAY TAKE ONE TABLET BY MOUTH EVERY DAY SOLD: 06/02/2021 [facility] 10 mg 01/28/2021 12:00:00 AM EDT tablet 30 TAKE ONE TABLET BY MOUTH EVERY DAY TAKE ONE TABLET BY MOUTH EVERY DAY SOLD: 01/30/2021 [facility] 40 mg 01/28/2021 12:00:00 AM EDT capsule,delayed release (DR/EC) 30 TAKE ONE CAPSULE BY MOUTH EVERY DAY TAKE ONE CAPSULE BY MOUTH EVERY DAY SOLD: 03/01/2021 [facility] 40 mg 01/28/2021 12:00:00 AM EDT capsule,delayed release (DR/EC) 30 TAKE ONE CAPSULE BY MOUTH EVERY DAY TAKE ONE CAPSULE BY MOUTH EVERY DAY SOLD: 05/05/2021 [facility] 10 mg 01/28/2021 12:00:00 AM EDT tablet 30 TAKE ONE TABLET BY MOUTH EVERY DAY TAKE ONE TABLET BY MOUTH EVERY DAY SOLD: 05/05/2021 [facility] 10 mg 01/28/2021 12:00:00 AM EDT tablet 30 TAKE ONE TABLET BY MOUTH EVERY DAY TAKE ONE TABLET BY MOUTH EVERY DAY SOLD: 03/01/2021 [facility] 10 mg 01/28/2021 12:00:00 AM EDT tablet 30 TAKE ONE TABLET BY MOUTH EVERY DAY TAKE ONE TABLET BY MOUTH EVERY DAY SOLD: 04/03/2021 [facility] 150 mg 12/21/2020 12:00:00 AM EDT capsule,extended releas e 24hr 30 TAKE ONE CAPSULE BY MOUTH EVERY DAY IN THE MORNING TAKE ONE CAPSULE BY MOUTH EVERY DAY IN THE MORNING SOLD: 12/26/2020 [facility] 150 mg 12/21/2020 12:00:00 AM EDT capsule,extended releas e 24hr 30 TAKE ONE CAPSULE BY MOUTH EVERY DAY IN THE MORNING TAKE ONE CAPSULE BY MOUTH EVERY DAY IN THE MORNING SOLD: 02/01/2021 [facility] 90 mcg/actuation 11/10/2020 12:00:00 AM EST HFA aerosol inha ler 8 INHALE 1-2 PUFFS BY MOUTH EVERY 4 HOURS NEEDED FOR WHEEZING INHALE 1-2 PUFFS BY MOUTH EVERY 4 HOURS NEEDED FOR WHEEZING SOLD: 11/11/2020 [facility] 600 mg 11/10/2020 12:00:00 AM EST tablet extended release 12hr 20 TAKE 1 TABLET BY MOUTH EVERY 12 HOURS FOR 10 DAYS TAKE 1 TABLET BY MOUTH EVERY 12 HOURS FOR 10 DAYS SOLD: 11/11/2020 [facility] 20 mg 11/10/2020 12:00:00 AM EST tablet 10 TAKE TWO TABLETS BY MOUTH EVERY DAY FOR 5 DAYS TAKE TWO TABLETS BY MOUTH EVERY DAY FOR 5 DAYS SOLD: [facility] gabapentin 800 MG Oral Tablet GABAPENTIN 10/31/2020 12:00:00 AM EST ta blet 90 TAKE ONE TABLET BY MOUTH THREE TIMES A DAY TAKE ONE TABLET BY MOUTH THREE TIMES A DAY SOLD: 08/07/2021 [facility] gabapentin 800 MG Oral Tablet GABAPENTIN 10/31/2020 12:00:00 AM EST ta blet 90 TAKE ONE TABLET BY MOUTH THREE TIMES A DAY TAKE ONE TABLET BY MOUTH THREE TIMES A DAY SOLD: 05/10/2021 [facility] gabapentin 800 MG Oral Tablet GABAPENTIN 10/31/2020 12:00:00 AM EST ta blet 90 TAKE ONE TABLET BY MOUTH THREE TIMES A DAY TAKE ONE TABLET BY MOUTH THREE TIMES A DAY SOLD: 11/04/2020 [facility] gabapentin 800 MG Oral Tablet GABAPENTIN 10/31/2020 12:00:00 AM EST ta blet 90 TAKE ONE TABLET BY MOUTH THREE TIMES A DAY TAKE ONE TABLET BY MOUTH THREE TIMES A DAY SOLD: 12/26/2020 [facility] 400 mg 10/08/2020 12:00:00 AM EST capsule 90 TAKE ONE CAPSULE BY MOUTH THREE TIMES A DAY TAKE ONE CAPSULE BY MOUTH THREE TIMES A DAY SOLD: 12/26/2020 [facility] 400 mg 10/08/2020 12:00:00 AM EST capsule 90 TAKE ONE CAPSULE BY MOUTH THREE TIMES A DAY TAKE ONE CAPSULE BY MOUTH THREE TIMES A DAY SOLD: 05/10/2021 [facility] 400 mg 10/08/2020 12:00:00 AM EST capsule 90 TAKE ONE CAPSULE BY MOUTH THREE TIMES A DAY TAKE ONE CAPSULE BY MOUTH THREE TIMES A DAY SOLD: 10/08/2020 [facility] 800 mg 09/09/2020 12:00:00 AM EST tablet 30 TAKE ONE TABLET BY MOUTH THREE TIMES A DAY FOR 10 DAYS TAKE ONE TABLET BY MOUTH THREE TIMES A DAY FOR 10 DAYS SOLD: 09/09/2020 [facility] doxycycline hyclate 100 MG Oral Capsule DOXYCYCLINE HYCLATE 09/09/2020 12:00:00 AM EST capsule 20 TAKE ONE CAPSULE BY MOUTH TW ICE A DAY FOR 10 DAYS TAKE ONE CAPSULE BY MOUTH TWICE A DAY FOR 10 DAYS SOLD: 09/09/2020 [facility] 20 mg 08/24/2020 12:00:00 AM EST tablet 10 TAKE TWO TABLETS BY MOUTH EVERY DAY FOR 5 DAYS TAKE TWO TABLETS BY MOUTH EVERY DAY FOR 5 DAYS SOLD: [facility] 150 mg 08/23/2020 12:00:00 AM EST capsule,extended releas e 24hr 30 TAKE ONE CAPSULE BY MOUTH EVERY MORNING TAKE ONE CAPSULE BY MOUTH EVERY MORNING SOLD: 08/31/2020 [facility] 150 mg 08/23/2020 12:00:00 AM EST capsule,extended releas e 24hr 30 TAKE ONE CAPSULE BY MOUTH EVERY MORNING TAKE ONE CAPSULE BY MOUTH EVERY MORNING SOLD: 10/23/2020 [facility] 90 mcg/actuation 07/28/2020 12:00:00 AM EST HFA aerosol inha ler 18 INHALE TWO PUFFS BY MOUTH EVERY 4-6 HOURS NEEDED FOR SHORTNESS OF BREATH INHALE TWO PUFFS BY MOUTH EVERY 4-6 HOURS NEEDED FOR SHORTNESS OF BREATH SOLD: 09/01/2020 [facility] 90 mcg/actuation 07/28/2020 12:00:00 AM EST HFA aerosol inha ler 18 INHALE TWO PUFFS BY MOUTH EVERY 4-6 HOURS NEEDED FOR SHORTNESS OF BREATH INHALE TWO PUFFS BY MOUTH EVERY 4-6 HOURS NEEDED FOR SHORTNESS OF BREATH SOLD: 07/28/2020 [facility] 10 mg 06/22/2020 12:00:00 AM EDT tablet 30 TAKE ONE TABLET BY MOUTH EVERY DAY TAKE ONE TABLET BY MOUTH EVERY DAY SOLD: 10/08/2020 [facility] 40 mg 06/22/2020 12:00:00 AM EDT capsule,delayed release (DR/EC) 30 TAKE ONE CAPSULE BY MOUTH EVERY DAY TAKE ONE CAPSULE BY MOUTH EVERY DAY SOLD: 06/22/2020 [facility] 40 mg 06/22/2020 12:00:00 AM EDT capsule,delayed release (DR/EC) 30 TAKE ONE CAPSULE BY MOUTH EVERY DAY TAKE ONE CAPSULE BY MOUTH EVERY DAY SOLD: 08/31/2020 [facility] 100 mcg/actuation 06/22/2020 12:00:00 AM EDT blister with de vice 30 INHALE ONE PUFF BY MOUTH EVERY DAY INHALE ONE PUFF BY MOUTH EVERY DAY SOLD: 07/31/2020 [facility] 40 mg 06/22/2020 12:00:00 AM EDT capsule,delayed release (DR/EC) 30 TAKE ONE CAPSULE BY MOUTH EVERY DAY TAKE ONE CAPSULE BY MOUTH EVERY DAY SOLD: 12/26/2020 [facility] 150 mg 06/22/2020 12:00:00 AM EDT capsule,extended releas e 24hr 30 TAKE ONE CAPSULE BY MOUTH EVERY MORNING TAKE ONE CAPSULE BY MOUTH EVERY MORNING SOLD: 06/22/2020 [facility] 10 mg 06/22/2020 12:00:00 AM EDT tablet 30 TAKE ONE TABLET BY MOUTH EVERY DAY TAKE ONE TABLET BY MOUTH EVERY DAY SOLD: 07/31/2020 [facility] 10 mg 06/22/2020 12:00:00 AM EDT tablet 30 TAKE ONE TABLET BY MOUTH EVERY DAY TAKE ONE TABLET BY MOUTH EVERY DAY SOLD: 12/26/2020 [facility] 40 mg 06/22/2020 12:00:00 AM EDT capsule,delayed release (DR/EC) 30 TAKE ONE CAPSULE BY MOUTH EVERY DAY TAKE ONE CAPSULE BY MOUTH EVERY DAY SOLD: 07/31/2020 [facility] 100 mcg/actuation 06/22/2020 12:00:00 AM EDT blister with de vice 30 INHALE ONE PUFF BY MOUTH EVERY DAY INHALE ONE PUFF BY MOUTH EVERY DAY SOLD: 06/22/2020 [facility] 40 mg 06/22/2020 12:00:00 AM EDT capsule,delayed release (DR/EC) 30 TAKE ONE CAPSULE BY MOUTH EVERY DAY TAKE ONE CAPSULE BY MOUTH EVERY DAY SOLD: 11/21/2020 [facility] 150 mg 06/22/2020 12:00:00 AM EDT capsule,extended releas e 24hr 30 TAKE ONE CAPSULE BY MOUTH EVERY MORNING TAKE ONE CAPSULE BY MOUTH EVERY MORNING SOLD: 07/31/2020 [facility] 10 mg 06/22/2020 12:00:00 AM EDT tablet 30 TAKE ONE TABLET BY MOUTH EVERY DAY TAKE ONE TABLET BY MOUTH EVERY DAY SOLD: 11/21/2020 [facility] 100 mcg/actuation 06/22/2020 12:00:00 AM EDT blister with de vice 30 INHALE ONE PUFF BY MOUTH EVERY DAY INHALE ONE PUFF BY MOUTH EVERY DAY SOLD: 09/06/2020 [facility] 10 mg 06/22/2020 12:00:00 AM EDT tablet 30 TAKE ONE TABLET BY MOUTH EVERY DAY TAKE ONE TABLET BY MOUTH EVERY DAY SOLD: 08/31/2020 [facility] 40 mg 06/22/2020 12:00:00 AM EDT capsule,delayed release (DR/EC) 30 TAKE ONE CAPSULE BY MOUTH EVERY DAY TAKE ONE CAPSULE BY MOUTH EVERY DAY SOLD: 10/08/2020 [facility] 10 mg 06/22/2020 12:00:00 AM EDT tablet 30 TAKE ONE TABLET BY MOUTH EVERY DAY TAKE ONE TABLET BY MOUTH EVERY DAY SOLD: 06/22/2020 [facility] 10 mg 06/17/2020 12:00:00 AM EDT tablet 90 TAKE ONE TABLET BY MOUTH THREE TIMES A DAY TAKE ONE TABLET BY MOUTH THREE TIMES A DAY SOLD: 08/31/2020 [facility] 10 mg 06/17/2020 12:00:00 AM EDT tablet 90 TAKE ONE TABLET BY MOUTH THREE TIMES A DAY TAKE ONE TABLET BY MOUTH THREE TIMES A DAY SOLD: 10/08/2020 [facility] 10 mg 06/17/2020 12:00:00 AM EDT tablet 90 TAKE ONE TABLET BY MOUTH THREE TIMES A DAY TAKE ONE TABLET BY MOUTH THREE TIMES A DAY SOLD: 06/22/2020 [facility] 10 mg 06/17/2020 12:00:00 AM EDT tablet 90 TAKE ONE TABLET BY MOUTH THREE TIMES A DAY TAKE ONE TABLET BY MOUTH THREE TIMES A DAY SOLD: 12/26/2020 [facility] 325 mg (65 mg iron) 06/16/2020 12:00:00 AM EDT tablet, delayed release (DR/EC) 30 TAKE ONE TABLET BY MOUTH EVERY DAY TAKE ONE TABL ET BY MOUTH EVERY DAY SOLD: 06/22/2020 [facility] 20 mg 06/14/2020 12:00:00 AM EDT tablet 15 TAKE THREE TABLETS BY MOUTH EVERY DAY FOR 5 DAYS TAKE THREE TABLETS BY MOUTH EVERY DAY FOR 5 DAYS SOLD: 06/14/2020 [facility] 90 mcg/actuation 06/14/2020 12:00:00 AM EDT HFA aerosol inha ler 8 INHALE 1-2 PUFFS BY MOUTH EVERY 4 HOURS NEEDED FOR WHEEZING INHALE 1-2 PUFFS BY MOUTH EVERY 4 HOURS NEEDED FOR WHEEZING SOLD: 06/14/2020 [facility] doxycycline hyclate 100 MG Oral Capsule DOXYCYCLINE HYCLATE 06/14/2020 12:00:00 AM EDT capsule 20 TAKE ONE CAPSULE BY MOUTH TW ICE A DAY FOR 10 DAYS TAKE ONE CAPSULE BY MOUTH TWICE A DAY FOR 10 DAYS SOLD: 06/14/2020 [facility] 150 mg 06/14/2020 12:00:00 AM EDT tablet 1 TAKE 1 TABLET BY MOUTH ONCE TAKE 1 TABLET BY MOUTH ONCE SOLD: 06/14/2020 [facility] 90 mcg/actuation 02/08/2020 12:00:00 AM EDT HFA aerosol inha ler 18 USE 2 PUFFS BY MOUTH EVERY 4 TO 6 HOURS NEEDED FOR SHORTNESS OF BREATH USE 2 PUFFS BY MOUTH EVERY 4 TO 6 HOURS NEEDED FOR SHORTNESS OF BREATH SOLD: 07/03/2020 [facility] 400 mg 12/25/2019 12:00:00 AM EDT capsule 90 TAKE ONE CAPSULE BY MOUTH THREE TIMES A DAY TAKE ONE CAPSULE BY MOUTH THREE TIMES A DAY SOLD: 08/31/2020 [facility] Insurance Providers Payer name Policy type / Coverage type Policy ID Covered constitution party ID Covered constitution party's relationship to yepez Policy Yepez Plan Information [facility] COMM[facility] [id number] SP [id number] [facility] [id number] SP [id number] [facility] COMMUNITY PLAN [facility] [id number] SP [id number] [facility] COMM[facility] [id number] SP [id number] [facility] [id number] SP [id number] [facility] COMM[facility] [id number] SP [id number] [facility] COMMUNITY PLAN [facility] [id number] SP [id number] [facility] I [id number] Self [id number] [employer] [id number] Self [id number] [employer] [id number] Self [id number] [facility] [employer] [id number] Self [id number] [facility]- Needs Payer Match [id number] Self [id number] ANS-Medicaid [id number] ANS-Medicaid [id number] ANSI-Medicaid [id number] ANS-Medicaid [id number] ANSI-Medicaid [id number] ANSI-Medicaid [id number] ANSI-Medicaid [id number] ANSI-Medicaid [id number] ANSI-Medicaid [id number] [facility]-Medicaid [id number] [facility] Health Maintenance [facility] ([facility] 3 [id number] [facility] Maintenance [facility] ([facility] [id number] Self [id number] [facility]-Medicaid [id number] [facility]-Medicaid [id number] [facility]-Medicaid [id number] [facility]-Medicaid [id number] [facility] Health Maintenance [facility] ([facility] [id number] 3 [id number] [facility] Maintenance [facility] ([facility] [place] [id number] Self [id number] [facility] ([facility] [place] 3 [id number] 3 [id number] [facility] Maintenance [facility] ([facility] [place] [id number] Self 1 [id number] ANSI-Medicaid [id number] ANSI-Medicaid [id number] [facility] Health Maintenance Organization (HMO) 3 [id number] 3 [id number] [facility] Health Maintenance Organization (HMO) [id number] Self 1 [id number] [facility] Health Maintenance Organization (HMO) 3 [id number] 3 [id number] [facility] Health Maintenance Organization (HMO) [id number] Self 1 [id number] [facility] [id number] Preferred Provider Organization (PPO) [id number] [facility] Health Maintenance Organization (HMO) [id number] Self 1 [id number] [facility] Health Maintenance Organization (HMO) 3 [id number] 3 [id number] [facility] Health Maintenance Organization (HMO) [id number] Self 1 [id number] [facility] Health Maintenance Organization (HMO) 3 [id number] 3 [id number] [facility] Health Maintenance Organization (HMO) [id number] Self 1 [id number] [facility] COMMUNITY PLAN MCDO [id number] SP [id number] [facility] Health Maintenance Organization (HMO) 3 [id number] 3 [id number] [facility] Health Maintenance Organization (HMO) [id number] Self 1 [id number] [facility] Health Maintenance Organization (HMO) 3 [id number] 3 [id number] [facility] Health Maintenance Organization (HMO) [id number] Self 1 [id number] [facility] Health Maintenance Organization (HMO) 3 [id number] 3 [id number] [facility] Health Maintenance Organization (HMO) [id number] Self 1 [id number] [facility] Health Maintenance Organization (HMO) 3 [id number] 3 [id number] [facility] Health Maintenance Organization (HMO) [id number] Self 1 [id number] [facility] COMMUNITY PLAN [facility] [id number] SP [id number] [facility] COMMUNITY PLAN [facility] [id number] SP [id number] [facility] [id number] SP [id number] Community Plan - [facility] Commercial [id number] Self UN COMMUNITY PLAN [facility] [id number] SP [id number] [facility]) O [id number] S [id number] [facility] [id number] SP [id number] SELF PAY UNAVAILABLE SP UNAVAILA BLE PMA MANAGEMENT [facility] [id number] SP [id number] PMA MANAGEMENT [facility] P [id number] S [id number] PMA MANAGEMENT [facility] [id number] SP [id number] HMO BLUE [id number] SP [id number] HMO BLUE [id number] SP [id number] HMO BLUE [id number] SP [id number] MEDICAID [id number] SP [id number] [facility] [id number] HU2 [id number] [facility] [id number] HU2 [id number] [facility] [id number] SP [id number] [facility] COMMUNITY PLAN [facility] [id number] SP [id number] [facility]) O [id number] S [id number] ANSI-Medicaid [id number] ANSI-Medicaid [id number] ANSI-Medicaid [id number] ANSI-Medicaid [id number] ANSI-Medicaid [id number] [facility]-Medicaid [id number] [facility]-Medicaid [id number] [facility]-Medicaid [id number] Problems, Conditions, and Diagnoses Code Display Name Description Problem Type Effective Dates Data Source(s) D64.9 Anemia, unspecified Anemia, unspecified Diagnosis 1 11:45:00 AM EDT [facility] Surgeries/Procedures No Information Results ID Date Data Source [id number] 07/24/2021 09:30:00 AM EST [facility] Name Value Range Interpretation Code Description Data Ingris rce(s) Supporting Document(s) SARS-CoV-2 RNA Resp Ql CHAPARRITA+probe NOT DETECTED [facility] This lab was ordered by LYUBOV johnson and reported by LYUBOV Felix. ID Date Data Source [id number] 07/14/2021 08:00:00 AM EDT [facility] Name Value Range Interpretation Code Description Data Ingris rce(s) Supporting Document(s) SARS-CoV-2 RNA Resp Ql CHAPARRITA+probe NOT DETECTED [facility] This [facility] ordered by LYUBOV johnson and reported by LYUBOV Felix. ID Date Data Source [id number] 07/07/2021 12:00:00 AM EDT [facility] Name Value Range Interpretation Code Description Data Ingris rce(s) Supporting Document(s) SARS-CoV2 Rapid Antigen Negative [facility] This lab was ordered by [facility] and reported by [facility]. ID Date Data Source [id number] 06/21/2021 10:00:00 AM EDT [facility] Name Value Range Interpretation Code Description Data Ingris rce(s) Supporting Document(s) SARS coronavirus 2 RNA [Presence] in Res piratory specimen by CHAPARRITA with probe detection NEGATIVE [facility] This lab was ordered by [facility] a nd reported by [facility]. ID Date Data Source [id number] 06/16/2021 12:49:00 PM EDT [facility] Hematopathology Report See Addendum [place] wName: GEORGE CHOWDHURYMRN: [id number] Number: [id number] Date: 06/15/2021 10:04Received Date: 06/15/2021 13:31Physician(s): ANCA HAM MD VYAS, SHIKHAR G,[facility]opy To:[facility]imen[facility]s) ReceivedA: Blood, Flow Cytometry; received 1 green top peripheral blood and 2extra EDTA sent to MolecularClinical HistoryLeukocytosisTEST REQUESTED/PERFORMED: Flow Cytometry Analysis DiagnosisFlow cytometry of blood: No evidence of leukemia or non-Hodgkin lymphoma.Sara Blakely M.D.;Resident PathologistElectronically Signed By Sissy Mims M.D. Attending Pathologist 06/16/2021 12:49:57The attending pathologist named above attests that he/she has personallyreviewed the relevant preparation(s) for the specimen(s) and rendered thefinal diagnosis. Addendum 2021 FISH testing of this specimen (see [id number]) is negative for a t(9;22)BCR-ABL1 gene rearrangement, providing no evidence for chronic myeloidleukemia. Addendum Electronically Signed By: Nuzhat Hammond MD 2021 12:02 ProceduresFlow Cytometry Date Ordered:06/15/2021 Status: Signed Out06/16/2021 InterpretationPERIPHERAL BLOOD: CBC performed at [facility], [address] [place] [address] on 06/15/21.WBC *13.2 K/uLRBC 4.54 M/uLHgb 13.0 g/dLHct 40.4 %MCV 89.0 fLMCH 28.6 pgMCHC 32.2 g/dLRDW 15.5 %Platelets 387 K/uLDifferential Count (automated):68.7 % Neutrophils 3.2 % Eosinophils 0.6 % Azfylging73.8 % Lymphocytes 0.4 % Immature Granulocytes 7.3 % Monocytes-------100.0 % A peripheral blood film is reviewed.Lymphoid Panel: The following markers were assayed: CD45 (gate), CD2, C D3, CD4, CD5, CD7,CD8, CD10, CD19, CD20,CD38, CD56, CD57, Fair[place], and Lambda.# events: [id number]: 100%Flow Cytometry Differential (CD45/SSC)Lymphocyte [place]: 20%CD45 dim [place]: 0%Monocyte [place]: 3%Granulocyte [place]: 74%Nucleated/Erythroid [place]: 0%The lymphocyte gate showsB-cells (CD19): 0%T- cells (CD3): 89%NK-cells (CD3-/CD56+): 7%Fairmount/Lambda Ratio: 1.0CD4/CD8 Ratio: 5.6Results: (expressed as % of lymphocyte gate)T-cell Markers: CD2 = 93, CD3 = 89, CD3/CD4 = 74, CD3/CD8 = 13, CD5 = 89,CD7 = 92, CD3/57 = 4B-cell markers: Fairmount = 0, Lambda = 0, CD19 = 0, CD20 = 0, CD19/10 = 0,CD19/CD5 = 0, CD38/CD20 = 0Light chain as % of B-Cells: CD19/Fairmount = 14, CD19/Lambda = 14,CD19/CD5/[place]mount = 0, CD19/CD5/Lambda = 0CD19/CD10/[place] = 14, CD19/CD10/Lambda = 14NK cell Markers: CD56 = 9, CD57 = 7Other Markers: CD10 = 0, CD38 = 45Results- CommentsLymphocytes consist predominantly of T cells with normal expression of panT-cell markers and an increased CD4/CD8 ratio (5.6), normal proportions ofNK and cytotoxic T cells, and very few B cells.Procedure Electronically Signed By:Sissy Mims M.D.06/16/2021 This report may include one or more immunohistochemical stain/fluorochromeconjugated monoclonal antibody results tatum t use analyte specific reagents.All positive and negative controls have been reviewed by the attendingpathologist and are satisfactory. The tests were developed and theirperformance characteristics determined by [facility] Pathology department.They have not been cleared or approved by the US Food and DrugAdministration. The FDA has determined that such clearance or approval isnot necessary. Name Value Range Interpretation Code Description Data Ingris rce(s) Supporting Document(s) ID Date Data Source [id number] 06/16/2021 03:56:00 PM [facility] Cytogenetics ReportName: GEORGE CHOWDHURYMRN: [id number] Number: [id number] Date: 06/15/2021 00:00Received Date: 06/15/2021 13:04Physician(s): ANCA HAM MD VYAS, SHIKHAR G, MDSpecimen(s) ReceivedA: Peripheral Blood (U- IF)Clinical [id number] patient being evaluated for the BCR-ABL1 rearrangement. TEST REQUESTED/PERFORMED: Fluorescence in situ hybridization (FISH) InterpretationThe FISH study was negative for the BCR/ABL1 [t(9;22)] rearrangement.Please correlate with the concurrent Hematopathology report, [id number].Electronically Signed By Mark Noe, PhD Attending Pathologist 06/16/2021 15:56:38Results and ISCN (2016) NomenclatureFluorescence in situ Hybridization (FISH)nuc lizzeth (ABL1,BCR)x2[196/200]DescriptionThe FISH analysis showed a normal signal pattern for BCR and ABL1,providing no evidence of a t(9;22). Test DataSpecimen Processed: Peripheral BloodFluorescence in situ Hybridization (FISH): Direct, Unstimulated Probe Normal Cut-off Nuclei Analyzed FISH SIGNAL PATTERNS Normal Abnormal NKCS *LSI ABL1(9q34.1) SO LSI BCR(22q11.2) SG ES 3% 200 2O2% 0% 2% Vendor: *[employer] Probes: LSI: Locus Specific Probe; ES: Extra Signal; DCDF: Dual ColorDual Fusion Fluorochromes/ Signals: SG: Spectrum Green; SO: Spectrum Sebastian; Y:Yellow (Fusion) NKCS: Signals with No Known Clinical SignificanceDisclaimer: The FISH test was developed and its performance was validatedby the Cytogenetics section of the Department of Clinical Pathology. Th istest has not been cleared or approved by the U. S. Food and DrugAdministration (FDA). The FDA has determined that such approval is notnecessary. However, the procedure is considered investigational, andshould not be used as the sole criteria for diagnosis. Name Value Range Interpretation Code Description Data Ingris rce(s) Supporting Document(s) ID Date Data Source [id number] 04/01/2021 12:00:00 AM EDT [facility] Name Value Range Interpretation Code Description Data Ingris rce(s) Supporting Document(s) SARS-CoV2 Rapid Antigen Negative [facility] This lab was ordered by [facility] [place] and reported by [facility]. ID Date Data Source [id number] 03/08/2021 10:46:00 AM EDT [facility] Name Value Range Interpretation Code Description Data Ingris rce(s) Supporting Document(s) SARS-CoV-2 (COVID 19) NEGATIVE - SARS-CoV-2 (COVID19) [facility] This lab was ordered by [facility] a nd reported by [facility]. ID Date Data Source [id number] 11/09/2020 01:15:00 PM EST [facility] Name Value Range Interpretation Code Description Data Ingris rce(s) Supporting Document(s) SARS coronavirus 2 RNA [Presence] in Res piratory specimen by CHAPARRITA with probe detection NEGATIVE [facility] and reported by [employer]. ID Date Data Source [id number] 11/09/2020 12:00:00 AM EST [facility] Name Value Range Interpretation Code Description Data Ingris rce(s) Supporting Document(s) Carestart Rapid COVID Antigen Test Negative [facility] This lab was reported by Elvira [facility] yakov. ID Date Data Source [id number] 10/01/2020 03:00:00 PM EST [facility] Name Value Range Interpretation Code Description Data Ingris rce(s) Supporting Document(s) SARS-CoV-2 (COVID 19) NEGATIVE - SARS-CoV-2 (COVID19) [facility] This lab was ordered by [facility] a nd reported by [facility]. ID Date Data Source [id number] 08/24/2020 12:00:00 AM EST [facility] Name Value Range Interpretation Code Description Data Ingris rce(s) Supporting Document(s) SARS coronavirus 2 RNA [Presence] in Res piratory specimen by CHAPARRITA with probe detection [facility] This lab was ordered by Elvira Ghosh and reported by [employer]. Procedure Social History Code Duration Value Status Description Data Source(s ) Smoking 06/27/2021 12:00:00 AM EDT Former Smoker completed Former Smoker eCW1 ([facility])
--- NOTE | 2021-08-12 10:47 | REP ---
INDICATION: DYSPNEA/COUGH. COMPARISON: Comparison chest x-ray July 13, 2020. TECHNIQUE: Portable upright AP chest radiograph. FINDINGS: EKG monitoring electrodes overlie the chest. A right IJ Frwtvj-S-Drlv catheter is seen with its tip in the expected location of the superior vena cava unchanged. The heart is not enlarged. The lungs are well inflated and clear. The pleural angles are sharp. Pulmonary vasculature is not increased. No significant bony abnormality is seen. IMPRESSION: No active disease. <Electronically signed by Darrell Berman > 08/12/21 1043
[2021-08-12 11:13] LABS: BASO # 0.1 10^3/uL (0.0-0.2); BASO % 0.6 % (0.0-1.0); EOS # 0.5 10^3/uL (0.0-0.5); EOS % 4.7 % (0.0-3.0); HEMOGLOBIN 13.2 g/dl (12.0-15.5); LYMPH # 2.2 10^3/uL (1.5-5.0); LYMPH % 19.8 % (24.0-44.0); MEAN CORPUSCULAR HEMOGLOBIN 28.6 pg (27.0-33.0); MEAN CORPUSCULAR HGB CONC 32.2 g/dl (32.0-36.5); MEAN CORPUSCULAR VOLUME 88.9 fl (80.0-96.0); MONO # 0.9 10^3/uL (0.0-0.8); MONO % 7.7 % (2.0-8.0); NEUTROPHILS # 7.3 10^3/uL (1.5-8.5); NEUTROPHILS % 66.8 % (36.0-66.0); PLATELET COUNT, AUTOMATED 382 10^3/uL (150-450); RED BLOOD COUNT 4.61 10^6/uL (4.00-5.40)
--- OUTSIDE RECORDS SUMMARY | 2021-08-12 11:21 | CCD ---
Author Author [facility] Organization [facility] Address Unknown Phone Unavailable Care Team Providers Care Pain Management Physician Name Role Phone Aleks BARRAGAN MD Unavailable [...] Braswell NP Unavailable Unavailable Tavo Ernandez Unavailable [phone] Tavo Ernandez Unavailable [phone] Tavo Ernandez Unavailable [phone] Tavo Ernandez Unavailable [phone] Tavo Ernandez Unavailable [phone] Tavo Ernandez Unavailable [phone] Re-disclosure Warning The records that you are [...] is protected by Article 27-F of the [facility] Public Health law. If you continue you may have access to information: Regarding HIV / AIDS; Provided by facilities licensed or operated by the [facility] Office of Mental Health; or Provided by the [facility] Office for People With Developmental Disabilities. If such information is present, then the following [facility] mandated warning applies: This information has been [...] law may result in a fine or fci sentence or both. A general authorization for the release of medical or other information is NOT sufficient authorization for further disc losure. Family History Family Member Name Family Member Gender Family Member Status Date o f Status Description Data Source(s) Unknown Unknown Problem MEDENT ([facility]) Unknown Unknown Problem MEDENT ([facility]) Encounters Encounter Providers Location Date Indications Data Source(s ) Outpatient Attender: Wild Braswell NP 2020 09:18:59 AM EST - 07/24/2021 11:50:15 AM EST [facility] ([facility] ) Outpatient Attender: SANJANA BARRAGAN MD 07/14 07:58:07 AM EDT - 07/14/2021 08:42:07 AM EDT [facility] ([facility] ) [place] [address] [address] 07/06/2021 12:00:00 AM EDT eCW1 ([facility]) Outpatient Admitter: Anca Mayfielder: Anca Ham 06/15/2021 12:00:00 AM EDT Anemia, unspecified [facility] Anemia, unspecified [place] [address] [address] 03/14/2021 12:00:00 AM EDT eCW1 ([facility]) Outpatient Attender: Tavo Ernandez 11/09 12:53:56 PM EST - 11/09/2020 01:40:21 PM EST [facility] ([facility] ) Outpatient 10/19/2020 08:48:51 AM EST - 020 08:51:30 AM EST [facility] ([facility]) Unknown [address] [address] 07/26/2020 12:00:00 AM EST eCW1 ([facility]) Immunizations Vaccine Date Status Description Data Source(s) COVID-19 VACCINE Moderna 12/28/2020 12:00:00 AM EDT completed [facility] Vaccine Series Complete: YESThis Data wa s Submitted to [facility]. COVID-19 VACC,MRNA(MODERNA)/PF 12/28/2020 12:00:00 AM EDT completed [facility] COVID-19 VACCINE Moderna 12/02/2020 12:00:00 AM EDT completed [facility] Vaccine Series Complete: NOThis Data was Submitted to [facility]. COVID-19 VACCINE, MRNA-1273, LNP-S (MODERNA)/PF 12/02/2020 1 [...] CAPSULE BY MOUTH EVERY DAY SOLD: 06/02/2021 [facility] 40 mg 01/28/2021 12:00:00 AM [...] MOUTH THREE TIMES A DAY SOLD: 10/08/2020 [facility] 10 mg 06/17/2020 12:00:00 AM EDT [...] type / Coverage type Policy ID Covered green party ID Covered green party's relationship to yepez Policy Yepez Plan Information [facility] [id number] SP [id number] [facility] [id number] SP [id number] [facility] [id number] SP [id number] [facility] [id number] SP [id number] [facility] [id number] SP [id number] [facility] [id number] SP [id number] [facility] [id number] SP [id number] [facility] I [id number] Self [id number] [employer] [id number] Self [id number] [place] [employer]. [id number] Self [id number] [facility] [employer] [id number] Self [id number] RPR- Needs Payer Match [id number] Self [id number] ANS-Medicaid [id number] ANS-Medicaid [id number] ANSI-Medicaid [id number] ANS-Medicaid [id number] ANSI-Medicaid [id number] ANSI-Medicaid [id number] ANSI-Medicaid [id number] ANSI-Medicaid [id number] ANSI-Medicaid [id number] [facility]-Medicaid [id number] [facility] Health Maintenance [facility] ([facility]) 3 [id number] 3 [id number] [facility] Maintenance [facility] ([facility]) [id number] Self 1 [id number] [facility]-Medicaid [id number] [facility]-Medicaid [id number] [facility]-Medicaid [id number] [facility]-Medicaid [id number] [facility] Health Maintenance [facility] ([facility]) 3 [id number] 3 [id number] [facility] Maintenance [facility] ([facility]) [id number] Self 1 [id number] [facility] ([facility]) 3 [id number] 3 [id number] [facility] Maintenance [facility] ([facility]) [id number] Self 1 [id number] ANSI-Medicaid [id number] ANSI-Medicaid [id number] [facility] Health Maintenance Organization (HMO) 3 [id number] 3 [id number] [facility] Health Maintenance Organization (HMO) [id number] Self 1 [id number] [facility] Health Maintenance Organization (HMO) 3 [id number] 2.16.840.1.085653.3.227.99.8646.9793.0 3 [id number] [facility] Health Maintenance Organization (HMO) [id number] 2.16.840.1.779442.3.227.99.8646.9793.0 Self 1 [id number] [facility] 2.16.840.1.279438.3.441 [id number] Preferred Provider Organization (PPO) [id number] [facility] Health Maintenance Organization (HMO) [id number]9.1767.3433.0 Self 1 [id number] [facility] Health Maintenance Organization (HMO) 3 [id number] 2.16.840.1.254751.3.227.99.8646.9793.0 3 [id number] [facility] Health Maintenance Organization (HMO) [id number] Self 1 [id number] [facility] Health Maintenance Organization (HMO) 3 [id number] 2.16.840.1.678881.3.227.99.8646.9793.0 3 [id number] [facility] Health Maintenance Organization (HMO) [id number]9.8646.9793.0 Self [id number] [facility] COMMUNITY PLAN [facility] [id number] SP [id number] [facility] Health Maintenance Organization (HMO) 3 [id number] 2.16.840.1.825235.3.227.99.8646.9793.0 3 [id number] [facility] Health Maintenance Organization (HMO) [id number]9.8646.9793.0 Self 1 [id number] [facility] Health Maintenance Organization (HMO) 3 [id number] 2.16.840.1.256988.3.227.99.8646.9793.0 3 [id number] [facility] Health Maintenance Organization (HMO) [id number]9.8646.9793.0 Self 1 [id number] [facility] Health Maintenance Organization (HMO) 3 [id number] 2.16.840.1.418903.3.227.99.8646.9793.0 3 [id number] [facility] Health Maintenance Organization (HMO) [id number] Self 1 [id number] [facility] Health Maintenance Organization (HMO) 3 [id number] 2.16.840.1.397115.3.227.99.8646.9793.0 3 [id number] [facility] Health Maintenance Organization (HMO) [id number] Self [id number] [facility] COMMUNITY PLAN [facility] [id number] SP [id number] [facility] COMMUNITY PLAN [facility] [id number] SP [id number] [facility] COMM[facility]ITY PLAN [facility] [id number] SP [id number] Community Plan - [facility] Commercial [id number] Self UN COMMUNITY PLAN [facility] [id number] SP [id number] [facility]) O [id number] S [id number] [facility] [id number] SP [id number] SELF PAY UNAVAILABLE SP UNAVAILA BLE PMA MANAGEMENT L[facility]Y [facility] [id number] SP [id number] PMA MANAGEMENT LALY [facility] P [id number] S [id number] PMA MANAGEMENT L[facility]Y [facility] [id number] SP [id number] HMO BLUE [id number] SP [id number] HMO BLUE [id number] SP [id number] HMO BLUE [id number] SP [id number] MEDICAID [id number] SP [id number] [employer] [place] [employer] [id number] HU2 [id number] [employer] [id number] HU2 [id number] [facility] [id number] SP [id number] UNHC COMMUNITY PLAN [facility] [id number] SP [id number] [facility]) O [id number] S [id number] ANSI-Medicaid [id number] ANSI-Medicaid [id number] ANSI-Medicaid [id number] ANSI-Medicaid [id number] ANSI-Medicaid [id number] [facility]-Medicaid [id number] [facility]-Medicaid [id number] [facility]-Medicaid [id number] Problems, Conditions, and Diagnoses Code Display Name Description Problem Type Effective Dates Data Source(s) D64.9 Anemia, unspecified Anemia, unspecified Diagnosis 1 11:45:00 AM EDT [facility] Surgeries/Procedures No Information Results ID Date Data Source [id number] 07/24/2021 09:30:00 AM EST [facility] Name Value Range Interpretation Code Description Data Ingris rce(s) Supporting Document(s) SARS-CoV-2 RNA Resp Ql CHAPARRITA+probe NOT DETECTED [facility] This lab was ordered by LYUBOV johnson and reported by LYUBOV Felix. ID Date Data Source [id number] 07/14/2021 08:00:00 AM EDT [facility] Name Value Range Interpretation Code Description Data Ingris rce(s) Supporting Document(s) SARS-CoV-2 RNA Resp Ql CHAPARRITA+probe NOT DETECTED [facility] This lab was ordered by LYUBOV johnson and reported by LYUB[facility] Felix. ID Date Data Source [id number] 07/07/2021 12:00:00 AM EDT [facility] Name Value Range Interpretation Code Description Data Ingris rce(s) Supporting Document(s) SARS-CoV2 Rapid Antigen Negative [facility] This lab was ordered by [facility] and reported by [facility]. ID Date Data Source [id number] 06/21/2021 10:00:00 AM EDT [facility] Name Value Range Interpretation Code Description Data Ingris rce(s) Supporting Document(s) SARS coronavirus 2 RNA [Presence] in Res piratory specimen by CHAPARRITA with probe detection NEGATIVE [facility] This lab was ordered by [facility] a nd reported by [facility]. ID Date Data Source [id number] 06/16/2021 12:49:00 PM EDT [facility] Hematopathology Report See Addendum [place] wName: GEORGE CHOWDHURYMRN: [id number] Number: [id number] Date: 06/15/2021 10:04Received Date: 06/15/2021 13:31Physician(s): ANCA HAM MD VYAS, SHIKHAR G,[facility] To[facility]) ReceivedA: Blood, Flow Cytometry; received 1 [...] 2021 FISH testing of this specimen (see [id number]) is negative for a t(9;22)BCR-ABL1 gene rearrangement, providing no evidence for chronic myeloidleukemia. Addendum Electronically Signed By: Nuzhat Hammond MD 2021 12:02 ProceduresFlow Cytometry Date Ordered:06/15/2021 Status: Signed Out06/16/2021 InterpretationPERIPHERAL BLOOD: CBC performed at [facility], [address] [place] [address] on 06/15/21.WBC *13.2 K/uLRBC 4.54 M/uLHgb 13.0 g/dLHct 40.4 %MCV 89.0 fLMCH 28.6 pgMCHC 32.2 g/dLRDW 15.5 %Platelets 387 K/uLDifferential Count (automated):68.7 % Neutrophils 3.2 % Eosinophils 0.6 % Mebivlrhn94.8 % Lymphocytes 0.4 % Immature Granulocytes 7.3 % Monocytes-------100.0 % A peripheral blood film is reviewed.Lymphoid Panel: The following markers were assayed: CD45 (gate), CD2, C D3, CD4, CD5, CD7,CD8, CD10, CD19, CD20,CD38, CD56, CD57, Linda, and Lambda.# events: 50128Nysysmtro: 100%Flow Cytometry Differential (CD45/SSC)Lymphocyte [place]: 20%CD45 dim [place]: 0%Monocyte [place]: 3%Granulocyte [place]: 74%Nucleated/Erythroid [place]: 0%The lymphocyte gate showsB-cells (CD19): 0%T- cells (CD3): 89%NK-cells (CD3-/CD56+): 7%Linda/Lambda Ratio: 1.0CD4/CD8 Ratio: 5.6Results: (expressed as % of lymphocyte gate)T-cell Markers: CD2 = 93, CD3 = 89, CD3/CD4 = 74, CD3/CD8 = 13, CD5 = 89,CD7 = 92, CD3/57 = 4B-cell markers: Linda = 0, Lambda = 0, CD19 = 0, CD20 = 0, CD19/10 = 0,CD19/CD5 = 0, CD38/CD20 = 0Light chain as % of B-Cells: CD19/Linda = 14, CD19/Lambda = 14,CD19/CD5/Linda = 0, CD19/CD5/Lambda = 0CD19/CD10/Linda = 14, CD19/CD10/Lambda = 14NK cell Markers: [...] were developed and theirperformance characteristics determined by [facility] Pathology department.They have not been cleared or approved by the US Food and DrugAdministration. The FDA has determined that such clearance or approval isnot necessary. Name Value Range Interpretation Code Description Data Ingris rce(s) Supporting Document(s) ID Date Data Source [id number] 06/16/2021 03:56:00 PM [facility] Cytogenetics ReportName: GEORGE CHOWDHURYMRN: [id number] Number: [id number] Date: 06/15/2021 00:00Received Date: 06/15/2021 13:04Physician(s): ANCA HAM MD VYAS, SHIKHAR G, MDSpecimen(s) ReceivedA: Peripheral Blood (U- IF)Clinical [id number] patient being evaluated for the BCR-ABL1 rearrangement. [...] ES 3% 200 2O2% 0% 2% Vendor: *[employer] Probes: LSI: Locus Specific Probe; ES: Extra Signal; DCDF: Dual ColorDual Fusion Fluorochromes/ Signals: SG: Spectrum Green; SO: Spectrum [place]; Y:Yellow (Fusion) NKCS: Signals with No Known [...] Negative [facility] This lab was ordered by [facility] and reported by [facility]. ID Date Data Source [id number] 03/08/2021 10:46:00 AM EDT [facility] Name Value Range Interpretation Code Description Data Ingris rce(s) Supporting Document(s) SARS-CoV-2 (COVID 19) NEGATIVE - SARS-CoV-2 (COVID19) [facility] This lab was ordered by [facility] a nd reported by [facility]. ID Date Data Source [id number] 11/09/2020 01:15:00 PM EST [facility] Name Value Range Interpretation Code Description Data Ingris rce(s) Supporting Document(s) SARS coronavirus 2 RNA [Presence] in Res piratory specimen by CHAPARRITA with probe detection NEGATIVE [facility] and reported by [employer]. ID Date Data Source [id number] 11/09/2020 12:00:00 AM EST [facility] Name Value Range Interpretation Code Description Data Ingris rce(s) Supporting Document(s) Carestart Rapid COVID Antigen Test Negative [facility] This lab was reported by [facility]. ID Date Data Source [id number] 10/01/2020 03:00:00 PM EST [facility] Name Value Range Interpretation Code Description Data Ingris rce(s) Supporting Document(s) SARS-CoV-2 (COVID 19) NEGATIVE - SARS-CoV-2 (COVID19) [facility] This lab was ordered by [facility] a nd reported by [facility]. ID Date Data Source [id number] 08/24/2020 12:00:00 AM EST [facility] Name Value Range Interpretation Code Description Data Ingris rce(s) Supporting Document(s) SARS coronavirus 2 RNA [Presence] in Res piratory specimen by CHAPARRITA with probe detection [facility] This lab was ordered by [facility] and reported by [employer]. Procedure Social History Code Duration Value Status Description Data Source(s ) Smoking 06/27/2021 12:00:00 AM EDT Former Smoker completed Former Smoker eCW1 ([facility])
[2021-08-12] MEDS ORDERED: ACETAMINOPHEN 500 MG TAB PO ONE (11:25)
[2021-08-12 11:41] LABS: ALBUMIN 3.3 GM/DL (3.2-5.2); ALT/SGPT 25 U/L (12-78); BILIRUBIN,DIRECT < 0.1 MG/DL (0.0-0.2); BILIRUBIN,TOTAL 0.2 MG/DL (0.2-1.0); BLOOD UREA NITROGEN 7 MG/DL (7-18); CALCIUM LEVEL 8.9 MG/DL (8.5-10.1); CARBON DIOXIDE LEVEL 27 MEQ/L (21-32); CHLORIDE LEVEL 106 MEQ/L (98-107); CREATININE FOR GFR 0.74 MG/DL (0.55-1.30); GLOMERULAR FILTRATION RATE > 60.0 (>60); GLUCOSE, FASTING 98 MG/DL (70-100); POTASSIUM SERUM 4.2 MEQ/L (3.5-5.1); SODIUM LEVEL 140 MEQ/L (136-145); TOTAL PROTEIN 6.2 GM/DL (6.4-8.2)
[2021-08-12] MEDS: COMBIVENT RESPIMAT 100-20MCG INHALER 4GM INH SCH ×3 (12:00→12:41)
[2021-08-12] MEDS ORDERED: ISOVUE-370 76% 100ML VIAL As Ordered ONE ×2 (13:17→13:49)
--- NOTE | 2021-08-12 14:15 | REP ---
INDICATION: hypoxia. COMPARISON: Comparison study July 13, 2020. TECHNIQUE: Contrast dose: 75 ML of Isovue [address] technique: Helical scanning is acquired and overlapping 1.5 mm and contiguous 3 mm axial images are reformatted. In addition, maximum intensity projection and multiplanar re-formation images are generated in sagittal and coronal imaging projections. FINDINGS: There is good opacification in the pulmonary arterial tree. There is no evidence of vessel cut off or filling defect to suggest pulmonary embolus. Homogeneous opacity is seen in the thoracic aorta. There is no evidence of aneurysm or dissection. A right-sided Evmayd-U-Rrnv catheter is noted. There is no evidence of pleural or pericardial effusion. No hilar or mediastinal mass or adenopathy is observed. Lung window settings demonstrate in the right upper lobe anteriorly. Linear platelike atelectasis lung angel are otherwise clear. In the upper abdomen, there is moderate diffuse fatty infiltration of the liver. Normal adrenal glands. The visualized upper abdominal structures are otherwise unremarkable. No bony destructive lesion is seen. IMPRESSION: No CT evidence of pulmonary embolus. Moderate diffuse fatty infiltration of the liver. Ccngff-M-Lcbm catheter in place. Otherwise negative. <Electronically signed by Darrell Berman > 08/12/21 [id number]
[2021-08-12] MEDS ORDERED: PRED20TA PO (14:24)
[2021-08-12 15:00] VITALS: BP 135/71
--- NOTE | 2021-08-12 16:37 | ECGEPIP ---
[facility] - ED Test Date: 2021-08-12 Pat Name: GEORGE CHOWDHURY Department: Room: - Gender: Female [employer]: REAL : 1980 Requested By: Mariana Brenner Order Number: [id number] Reading MD: Mariana Brenner Measurements Intervals [place] Rate: 95 P: 54 MO: 142 QRS: 58 QRSD: 78 T: 24 QT: 342 QTc: 429 Interpretive Statements Normal sinus rhythm NSTTW abnormalities increased rate 07/10/17 Electronically Signed on 08-12-2021 16:37:19 EST by Mariana Brenner
== END 2021-08-12 15:24 | disposition home or self-care (01) ==
LOC: M ED 10:08
DX: J06.9 Acute upper respiratory infection, unspecified (principal); J45.909 Unspecified asthma, uncomplicated; R94.31 Abnormal electrocardiogram [ECG] [EKG]; F41.9 Anxiety disorder, unspecified; Z91.013 Allergy to seafood; Z88.0 Allergy status to penicillin; Z88.1 Allergy status to other antibiotic agents; Z88.2 Allergy status to sulfonamides; Z88.8 Allergy status to other drugs, medicaments and biological substances
CPT/HCPCS: 71045; 71275; 80048; 80076; 85025; 87040; 87798; 93005; 93041; 94760; 96374; 99285; J1642; Q9967

== ENCOUNTER 2021-10-13 13:57 | Inpatient (IN) | payer OTHER, MEDICAID ==
[~2021-10-13] VITALS: Ht 160 cm; Wt 122.0 kg
[~2021-10-13 13:57] MED LIST changes: -FLUC150T; +FLUC150T9; -SODIUM CHLORIDE 0.9% INJ 10 ML SYR IV SCH
[2021-10-13] MEDS ORDERED: MONT10TA97 PO (14:51)
[2021-10-13] MEDS ORDERED: ARNU1INH PO (14:51)
[2021-10-13] MEDS ORDERED: VENL75CA47 PO (14:51)
[2021-10-13] MEDS ORDERED: LevoFLOXacin IV 750 MG in IV 1 EA IV ONE (15:00)
[2021-10-13] MEDS ORDERED: dexameTHASONE 4 MG/ML 1ML VIAL (J1100 PER 1MG) IV ONE (15:00)
[2021-10-13 15:24] LABS: VENOUS BASE EXCESS -1.1 (-2.0-2.0); VENOUS HCO3 23.7 MEQ/L (23.0-27.0); VENOUS O2 SATURATION 91.9 % (60.0-80.0); VENOUS PARTIAL PRESSURE CO2 39.8 mmHg (38.0-50.0); VENOUS PARTIAL PRESSURE O2 63.1 mmHg (30.0-50.0); VENOUS PH 7.392 UNITS (7.330-7.430); VENOUS STANDARD HCO3 23.4 MEQ/L; VENOUS TOTAL CO2 24.9 MEQ/L (24.0-28.0)
[2021-10-13 15:25] LABS: HEMATOCRIT 39.5 % (36.0-47.0); MEAN CORPUSCULAR HEMOGLOBIN 28.4 pg (27.0-33.0); MEAN CORPUSCULAR HGB CONC 32.9 g/dl (32.0-36.5); MEAN CORPUSCULAR VOLUME 86.2 fl (80.0-96.0); PLATELET COUNT, AUTOMATED 235 10^3/uL (150-450); RED BLOOD COUNT 4.58 10^6/uL (4.00-5.40); WHITE BLOOD COUNT 5.1 10^3/uL (4.0-10.0)
[2021-10-13 15:45] LABS: ATYPICAL LYMPH 5 % (0-5); LYMPHOCYTES 5 % (16-44); MONOCYTES 7 % (0-5); NEUTROPHILS 79 % (28-66)
[2021-10-13 15:46] LABS: PLATELET ESTIMATE NORMAL (NORMAL)
[2021-10-13 16:03] LABS: ALT/SGPT 28 U/L (12-78); BILIRUBIN,DIRECT < 0.1 MG/DL (0.0-0.2); BILIRUBIN,TOTAL < 0.1 MG/DL (0.2-1.0); BLOOD UREA NITROGEN 9 MG/DL (7-18); CALCIUM LEVEL 7.4 MG/DL (8.5-10.1); CARBON DIOXIDE LEVEL 27 MEQ/L (21-32); CHLORIDE LEVEL 105 MEQ/L (98-107); CREATININE FOR GFR 0.71 MG/DL (0.55-1.30); GLOMERULAR FILTRATION RATE > 60.0 (>60); GLUCOSE, FASTING 101 MG/DL (70-100); POTASSIUM SERUM 3.4 MEQ/L (3.5-5.1); SODIUM LEVEL 138 MEQ/L (136-145); TOTAL PROTEIN 5.8 GM/DL (6.4-8.2)
[2021-10-13 16:09] LABS: HCG, SERUM QUALITATIVE NEGATIVE (NEGATIVE)
[2021-10-13] MEDS: COMBIVENT RESPIMAT 100-20MCG INHALER 4GM INH SCH ×3 (16:19→18:51)
[2021-10-13] MEDS ORDERED: ISOVUE-370 76% 100ML VIAL As Ordered ONE (17:29)
[2021-10-13] MEDS ORDERED: ACETAMINOPHEN 500 MG TAB PO ONE (19:20)
[2021-10-13] MEDS ORDERED: HOME MED LIST COMPLETE! XX SCH (19:25)
[2021-10-13] MEDS ORDERED: BENZONATATE 100MG CAPSULE PO PRN (19:45)
[2021-10-13] MEDS ORDERED: NS 1,000 ML IV ONE (20:00)
[2021-10-13] MEDS: ENOXAPARIN 40MG/0.4ML SYRINGE (J1650 PER 10MG) SC SCH (20:19)
[2021-10-13] MEDS ORDERED: KETOROLAC 30 MG/ML 1ML VIAL IV ONE (20:30)
[2021-10-13] MEDS ORDERED: SUMAtriptan SUCCINATE 25 MG TAB PO PRN (20:50)
[2021-10-13] MEDS ORDERED: EMLA CREAM 5GM TUBE (LIDOCAINE/PRILOCAINE) TOP PRN (20:50)
[2021-10-13] MEDS: MONTELUKAST 10 MG TAB PO SCH (21:00)
[2021-10-13] MEDS ORDERED: REMDESIVIR 200 MG in NS 250 ML IV ONE (21:00)
[2021-10-13] MEDS: LORATADINE 10 MG TAB PO SCH (23:00)
[2021-10-13] MEDS: OMEPRAZOLE 20MG CAP PO SCH (23:00)
[2021-10-13] MEDS ORDERED: SODIUM CHLORIDE 0.9% INJ 10 ML SYR IV ONE (23:00)
[2021-10-14] MEDS: VENLAFAXINE **XR** 75MG CAPSULE PO SCH ×2 (01:55→21:12)
[2021-10-14] MEDS: GABAPENTIN 400MG CAP PO SCH ×4 (01:55→21:12)
[2021-10-14] MEDS: BACLOFEN 10 MG TAB PO SCH ×4 (01:56→21:12)
[2021-10-14] MEDS: ACETAMINOPHEN TAB 650MG DOSE (2X325MG) PO PRN ×3 (01:56→17:10)
[2021-10-14] MEDS: LevoFLOXacin 750 MG TABLET PO SCH (05:57)
[2021-10-14 06:09] LABS: HEMATOCRIT 38.2 % (36.0-47.0); HEMOGLOBIN 12.5 g/dl (12.0-15.5); MEAN CORPUSCULAR HEMOGLOBIN 28.2 pg (27.0-33.0); MEAN CORPUSCULAR HGB CONC 32.7 g/dl (32.0-36.5); MEAN CORPUSCULAR VOLUME 86.2 fl (80.0-96.0); PLATELET COUNT, AUTOMATED 262 10^3/uL (150-450); RED BLOOD COUNT 4.43 10^6/uL (4.00-5.40)
[2021-10-14 06:41] LABS: ALBUMIN 2.8 GM/DL (3.2-5.2); ALT/SGPT 27 U/L (12-78); BILIRUBIN,DIRECT < 0.1 MG/DL (0.0-0.2); BILIRUBIN,TOTAL 0.2 MG/DL (0.2-1.0); BLOOD UREA NITROGEN 10 MG/DL (7-18); CALCIUM LEVEL 7.3 MG/DL (8.5-10.1); CARBON DIOXIDE LEVEL 26 MEQ/L (21-32); CHLORIDE LEVEL 105 MEQ/L (98-107); CREATININE FOR GFR 0.71 MG/DL (0.55-1.30); GLOMERULAR FILTRATION RATE > 60.0 (>60); GLUCOSE, FASTING 125 MG/DL (70-100); POTASSIUM SERUM 3.9 MEQ/L (3.5-5.1); SODIUM LEVEL 139 MEQ/L (136-145); TOTAL PROTEIN 5.8 GM/DL (6.4-8.2)
[2021-10-14 06:51] LABS: ATYPICAL LYMPH 9 % (0-5); LYMPHOCYTES 14 % (16-44); MONOCYTES 5 % (0-5); NEUTROPHILS 69 % (28-66)
[2021-10-14 06:55] LABS: PLATELET ESTIMATE NORMAL (NORMAL)
[2021-10-14] MEDS: FLUTICASONE HFA 110 MCG 12 GM INHALER (FLOVENT) INH SCH ×2 (07:34→20:11)
[2021-10-14] MEDS: ENOXAPARIN 40MG/0.4ML SYRINGE (J1650 PER 10MG) SC SCH ×2 (08:35→21:12)
[2021-10-14] MEDS: BARICITINIB 2MG TABLET (OLUMIANT) FOR EUA PO SCH (08:36)
[2021-10-14] MEDS: dexameTHASONE 4 MG/ML 1ML VIAL (J1100 PER 1MG) IV SCH (08:36)
[2021-10-14 12:48] VITALS: BP 127/78
[2021-10-14 19:03] LABS: MAGNESIUM LEVEL 1.3 MG/DL (1.7-2.2)
[2021-10-14 19:40] VITALS: BP 133/74
[2021-10-14 20:00] VITALS: O2SAT 92
[2021-10-14] MEDS: REMDESIVIR 100 MG in NS 250 ML IV SCH (21:11)
[2021-10-14] MEDS: MONTELUKAST 10 MG TAB PO SCH (21:12)
[2021-10-14] MEDS: LORATADINE 10 MG TAB PO SCH (21:12)
[2021-10-14] MEDS: OMEPRAZOLE 20MG CAP PO SCH (21:12)
[2021-10-14] MEDS: SODIUM CHLORIDE 0.9% INJ 10 ML SYR IV SCH (21:12)
[2021-10-15] MEDS: ACETAMINOPHEN TAB 650MG DOSE (2X325MG) PO PRN ×3 (01:19→21:45)
[2021-10-15 04:02] VITALS: BP 135/81
[2021-10-15] MEDS: LevoFLOXacin 750 MG TABLET PO SCH (05:49)
[2021-10-15 06:12] LABS: HEMATOCRIT 38.8 % (36.0-47.0); HEMOGLOBIN 12.4 g/dl (12.0-15.5); MEAN CORPUSCULAR HEMOGLOBIN 27.8 pg (27.0-33.0); PLATELET COUNT, AUTOMATED 314 10^3/uL (150-450); RED BLOOD COUNT 4.46 10^6/uL (4.00-5.40); WHITE BLOOD COUNT 7.3 10^3/uL (4.0-10.0)
[2021-10-15 06:26] LABS: INR 0.98; PROTHROMBIN TIME 13.4 SECONDS (12.7-14.5)
[2021-10-15 06:27] LABS: PARTIAL THROMBOPLASTIN TIME 37.8 SECONDS (25.9-37.0)
[2021-10-15 06:41] LABS: ALBUMIN 2.9 GM/DL (3.2-5.2); ALT/SGPT 47 U/L (12-78); BILIRUBIN,DIRECT < 0.1 MG/DL (0.0-0.2); BILIRUBIN,TOTAL 0.2 MG/DL (0.2-1.0); BLOOD UREA NITROGEN 10 MG/DL (7-18); CALCIUM LEVEL 7.5 MG/DL (8.5-10.1); CARBON DIOXIDE LEVEL 27 MEQ/L (21-32); CHLORIDE LEVEL 104 MEQ/L (98-107); CREATININE FOR GFR 0.76 MG/DL (0.55-1.30); FERRITIN 1306 NG/ML (8-252); GLOMERULAR FILTRATION RATE > 60.0 (>60); GLUCOSE, FASTING 91 MG/DL (70-100); LDH LACTATE DEHYDROGENASE 580 U/L (84-246); NT-PRO BNP 539 PG/ML (<125); POTASSIUM SERUM 3.6 MEQ/L (3.5-5.1); SODIUM LEVEL 141 MEQ/L (136-145); TOTAL PROTEIN 5.7 GM/DL (6.4-8.2)
[2021-10-15] MEDS: SODIUM CHLORIDE 0.9% INJ 10 ML SYR IV SCH ×2 (07:07→21:44)
[2021-10-15] MEDS: FLUTICASONE HFA 110 MCG 12 GM INHALER (FLOVENT) INH SCH ×2 (07:34→19:40)
[2021-10-15 07:37] LABS: ATYPICAL LYMPH 5 % (0-5); LYMPHOCYTES 29 % (16-44); MONOCYTES 10 % (0-5); NEUTROPHILS 55 % (28-66)
[2021-10-15 07:38] LABS: PLATELET CLUMPS SMALL AMT; PLATELET ESTIMATE NORMAL (NORMAL); SMUDGE CELLS 1+
[2021-10-15] MEDS: ENOXAPARIN 40MG/0.4ML SYRINGE (J1650 PER 10MG) SC SCH ×2 (08:24→21:44)
[2021-10-15] MEDS: dexameTHASONE 4 MG/ML 1ML VIAL (J1100 PER 1MG) IV SCH (08:24)
[2021-10-15] MEDS: LACTOBACILLUS ACIDOPHILUS CAP (BACID) PO SCH (08:25)
[2021-10-15] MEDS: BARICITINIB 2MG TABLET (OLUMIANT) FOR EUA PO SCH (08:25)
[2021-10-15] MEDS: BACLOFEN 10 MG TAB PO SCH ×3 (08:25→21:45)
[2021-10-15] MEDS: GABAPENTIN 400MG CAP PO SCH ×3 (08:25→21:45)
[2021-10-15] MEDS ORDERED: MAG SULF 1GM/100ML (MAG RUN) 1 GM in IV 1 EA IV ONE (11:15)
[2021-10-15 13:35] VITALS: BP 104/56
[2021-10-15 15:59] LABS: MAGNESIUM LEVEL 1.4 MG/DL (1.7-2.2)
[2021-10-15] MEDS: ALBUTEROL 90 MCG/ACT 8GM HFA INHALER INH PRN ×2 (19:41→23:56)
[2021-10-15 21:43] VITALS: BP 123/83
[2021-10-15] MEDS: VENLAFAXINE **XR** 75MG CAPSULE PO SCH (21:44)
[2021-10-15] MEDS: LORATADINE 10 MG TAB PO SCH (21:45)
[2021-10-15] MEDS: MONTELUKAST 10 MG TAB PO SCH (21:45)
[2021-10-15] MEDS: REMDESIVIR 100 MG in NS 250 ML IV SCH (21:45)
[2021-10-15] MEDS: OMEPRAZOLE 20MG CAP PO SCH (21:45)
[2021-10-16] MEDS: IPRATROPIUM 0.5MG/ALBUTEROL 2.5MG INH SOL UD 3ML (DUONEB) NEB SCH ×4 (02:25→19:19)
[2021-10-16 04:00] VITALS: BP 109/68
[2021-10-16] MEDS: LevoFLOXacin 750 MG TABLET PO SCH (05:47)
[2021-10-16] MEDS: SODIUM CHLORIDE 0.9% INJ 10 ML SYR IV SCH ×2 (05:53→22:07)
[2021-10-16 06:55] LABS: BASO % 0.3 % (0.0-1.0); EOS # 0.1 10^3/uL (0.0-0.5); EOS % 0.8 % (0.0-3.0); HEMATOCRIT 38.2 % (36.0-47.0); HEMOGLOBIN 12.3 g/dl (12.0-15.5); LYMPH # 2.5 10^3/uL (1.5-5.0); LYMPH % 34.6 % (24.0-44.0); MEAN CORPUSCULAR HGB CONC 32.2 g/dl (32.0-36.5); MONO # 0.8 10^3/uL (0.0-0.8); MONO % 10.8 % (2.0-8.0); NEUTROPHILS # 3.9 10^3/uL (1.5-8.5); NEUTROPHILS % 53.2 % (36.0-66.0); PLATELET COUNT, AUTOMATED 339 10^3/uL (150-450); RED BLOOD COUNT 4.39 10^6/uL (4.00-5.40); WHITE BLOOD COUNT 7.3 10^3/uL (4.0-10.0)
[2021-10-16 07:20] LABS: BLOOD UREA NITROGEN 11 MG/DL (7-18); CALCIUM LEVEL 7.9 MG/DL (8.5-10.1); CARBON DIOXIDE LEVEL 28 MEQ/L (21-32); CHLORIDE LEVEL 105 MEQ/L (98-107); CREATININE FOR GFR 0.68 MG/DL (0.55-1.30); FERRITIN 1081 NG/ML (8-252); GLOMERULAR FILTRATION RATE > 60.0 (>60); GLUCOSE, FASTING 96 MG/DL (70-100); POTASSIUM SERUM 3.3 MEQ/L (3.5-5.1); SODIUM LEVEL 141 MEQ/L (136-145)
[2021-10-16] MEDS ORDERED: POTASSIUM CHLORIDE 10MEQ SR TABLET PO ONE (08:00)
[2021-10-16] MEDS: FLUTICASONE HFA 110 MCG 12 GM INHALER (FLOVENT) INH SCH ×2 (08:25→19:19)
[2021-10-16] MEDS: ENOXAPARIN 40MG/0.4ML SYRINGE (J1650 PER 10MG) SC SCH ×2 (09:09→20:43)
[2021-10-16] MEDS: dexameTHASONE 4 MG/ML 1ML VIAL (J1100 PER 1MG) IV SCH (09:09)
[2021-10-16] MEDS: GABAPENTIN 400MG CAP PO SCH ×3 (09:10→20:43)
[2021-10-16] MEDS: LACTOBACILLUS ACIDOPHILUS CAP (BACID) PO SCH (09:10)
[2021-10-16] MEDS: BACLOFEN 10 MG TAB PO SCH ×3 (09:10→20:43)
[2021-10-16 14:00] VITALS: BP 119/77
[2021-10-16 15:03] LABS: MAGNESIUM LEVEL 2.1 MG/DL (1.7-2.2)
[2021-10-16] MEDS: BARICITINIB 2MG TABLET (OLUMIANT) FOR EUA PO SCH (16:23)
[2021-10-16] MEDS: ONDANSETRON 4MG/2ML VIAL IV PRN (16:41)
[2021-10-16 20:00] VITALS: BP 127/71; O2SAT 91
[2021-10-16] MEDS: OMEPRAZOLE 20MG CAP PO SCH (20:43)
[2021-10-16] MEDS: LORATADINE 10 MG TAB PO SCH (20:43)
[2021-10-16] MEDS: MONTELUKAST 10 MG TAB PO SCH (20:43)
[2021-10-16] MEDS: VENLAFAXINE **XR** 75MG CAPSULE PO SCH (20:43)
[2021-10-16] MEDS: REMDESIVIR 100 MG in NS 250 ML IV SCH (20:44)
[2021-10-16 21:00] VITALS: O2SAT 93
[2021-10-16] MEDS: ACETAMINOPHEN TAB 650MG DOSE (2X325MG) PO PRN (21:07)
[2021-10-16 22:00] VITALS: O2SAT 92
[2021-10-16 23:00] VITALS: O2SAT 94
[2021-10-17] VITALS (11 sets, daily range): BP systolic 106–133; BP diastolic 64–88; O2SAT 91–96
[2021-10-17] MEDS: IPRATROPIUM 0.5MG/ALBUTEROL 2.5MG INH SOL UD 3ML (DUONEB) NEB SCH ×4 (03:03→21:51)
[2021-10-17] MEDS: LevoFLOXacin 750 MG TABLET PO SCH (07:20)
[2021-10-17] MEDS: SODIUM CHLORIDE 0.9% INJ 10 ML SYR IV PRN (07:22)
[2021-10-17 08:15] LABS: BASO % 0.3 % (0.0-1.0); EOS # 0.2 10^3/uL (0.0-0.5); EOS % 2.9 % (0.0-3.0); HEMATOCRIT 38.3 % (36.0-47.0); HEMOGLOBIN 12.3 g/dl (12.0-15.5); LYMPH # 2.9 10^3/uL (1.5-5.0); LYMPH % 42.2 % (24.0-44.0); MEAN CORPUSCULAR HEMOGLOBIN 28.2 pg (27.0-33.0); MEAN CORPUSCULAR HGB CONC 32.1 g/dl (32.0-36.5); MEAN CORPUSCULAR VOLUME 87.8 fl (80.0-96.0); MONO # 0.7 10^3/uL (0.0-0.8); MONO % 9.7 % (2.0-8.0); NEUTROPHILS # 3.1 10^3/uL (1.5-8.5); NEUTROPHILS % 44.5 % (36.0-66.0); PLATELET COUNT, AUTOMATED 366 10^3/uL (150-450); RED BLOOD COUNT 4.36 10^6/uL (4.00-5.40); WHITE BLOOD COUNT 6.9 10^3/uL (4.0-10.0)
[2021-10-17] MEDS: ALBUTEROL 90 MCG/ACT 8GM HFA INHALER INH PRN (08:15)
[2021-10-17] MEDS: FLUTICASONE HFA 110 MCG 12 GM INHALER (FLOVENT) INH SCH ×2 (08:15→21:51)
[2021-10-17] MEDS: ONDANSETRON 4MG/2ML VIAL IV PRN (08:19)
[2021-10-17] MEDS: ENOXAPARIN 40MG/0.4ML SYRINGE (J1650 PER 10MG) SC SCH ×2 (08:19→20:56)
[2021-10-17] MEDS: SODIUM CHLORIDE 0.9% INJ 10 ML SYR IV SCH ×2 (08:22→20:54)
[2021-10-17] MEDS: LACTOBACILLUS ACIDOPHILUS CAP (BACID) PO SCH (08:22)
[2021-10-17] MEDS: dexameTHASONE 4 MG/ML 1ML VIAL (J1100 PER 1MG) IV SCH (08:23)
[2021-10-17] MEDS: BACLOFEN 10 MG TAB PO SCH ×3 (08:23→20:57)
[2021-10-17] MEDS: GABAPENTIN 400MG CAP PO SCH ×3 (08:23→20:57)
[2021-10-17 08:25] LABS: INR 0.87; PROTHROMBIN TIME 12.2 SECONDS (12.7-14.5)
[2021-10-17 08:26] LABS: PARTIAL THROMBOPLASTIN TIME 48.1 SECONDS (25.9-37.0)
[2021-10-17] MEDS: BARICITINIB 2MG TABLET (OLUMIANT) FOR EUA PO SCH (08:32)
[2021-10-17] MEDS: ACETAMINOPHEN TAB 650MG DOSE (2X325MG) PO PRN ×3 (08:36→20:56)
[2021-10-17 09:16] LABS: ALBUMIN 2.8 GM/DL (3.2-5.2); ALT/SGPT 48 U/L (12-78); BILIRUBIN,DIRECT < 0.1 MG/DL (0.0-0.2); BILIRUBIN,TOTAL 0.2 MG/DL (0.2-1.0); BLOOD UREA NITROGEN 13 MG/DL (7-18); CALCIUM LEVEL 8.5 MG/DL (8.5-10.1); CARBON DIOXIDE LEVEL 27 MEQ/L (21-32); CHLORIDE LEVEL 107 MEQ/L (98-107); CREATININE FOR GFR 0.64 MG/DL (0.55-1.30); FERRITIN 764 NG/ML (8-252); GLOMERULAR FILTRATION RATE > 60.0 (>60); GLUCOSE, FASTING 98 MG/DL (70-100); LDH LACTATE DEHYDROGENASE 372 U/L (84-246); NT-PRO BNP 344 PG/ML (<125); POTASSIUM SERUM 3.8 MEQ/L (3.5-5.1); SODIUM LEVEL 143 MEQ/L (136-145)
[2021-10-17] MEDS: REMDESIVIR 100 MG in NS 250 ML IV SCH (20:54)
[2021-10-17] MEDS: OMEPRAZOLE 20MG CAP PO SCH (20:56)
[2021-10-17] MEDS: LORATADINE 10 MG TAB PO SCH (20:56)
[2021-10-17] MEDS: VENLAFAXINE **XR** 75MG CAPSULE PO SCH (20:57)
[2021-10-17] MEDS: MONTELUKAST 10 MG TAB PO SCH (20:57)
[2021-10-18] MEDS: IPRATROPIUM 0.5MG/ALBUTEROL 2.5MG INH SOL UD 3ML (DUONEB) NEB SCH ×4 (02:00→20:00)
[2021-10-18 04:00] VITALS: BP 102/57
[2021-10-18] MEDS: SODIUM CHLORIDE 0.9% INJ 10 ML SYR IV PRN (05:49)
[2021-10-18] MEDS: LevoFLOXacin 750 MG TABLET PO SCH (05:49)
[2021-10-18] MEDS: ONDANSETRON 4MG/2ML VIAL IV PRN (05:49)
[2021-10-18 06:57] LABS: BLOOD UREA NITROGEN 13 MG/DL (7-18); CALCIUM LEVEL 7.8 MG/DL (8.5-10.1); CARBON DIOXIDE LEVEL 28 MEQ/L (21-32); CHLORIDE LEVEL 106 MEQ/L (98-107); CREATININE FOR GFR 0.63 MG/DL (0.55-1.30); GLOMERULAR FILTRATION RATE > 60.0 (>60); GLUCOSE, FASTING 107 MG/DL (70-100); POTASSIUM SERUM 3.6 MEQ/L (3.5-5.1); SODIUM LEVEL 143 MEQ/L (136-145)
[2021-10-18] MEDS: FLUTICASONE HFA 110 MCG 12 GM INHALER (FLOVENT) INH SCH ×2 (07:47→20:30)
[2021-10-18] MEDS: SODIUM CHLORIDE 0.9% INJ 10 ML SYR IV SCH (09:24)
[2021-10-18] MEDS: LACTOBACILLUS ACIDOPHILUS CAP (BACID) PO SCH (09:25)
[2021-10-18] MEDS: dexameTHASONE 4 MG/ML 1ML VIAL (J1100 PER 1MG) IV SCH (09:25)
[2021-10-18] MEDS: ENOXAPARIN 40MG/0.4ML SYRINGE (J1650 PER 10MG) SC SCH ×2 (09:25→20:26)
[2021-10-18] MEDS: BACLOFEN 10 MG TAB PO SCH ×3 (09:25→20:27)
[2021-10-18] MEDS: GABAPENTIN 400MG CAP PO SCH ×3 (09:25→20:27)
[2021-10-18] MEDS ORDERED: POTASSIUM CHLORIDE 10MEQ SR TABLET PO ONE (11:20)
[2021-10-18 13:45] VITALS: BP 112/65
[2021-10-18 15:40] LABS: MAGNESIUM LEVEL 1.8 MG/DL (1.7-2.2)
[2021-10-18 20:00] VITALS: BP 112/76
[2021-10-18] MEDS: MONTELUKAST 10 MG TAB PO SCH (20:26)
[2021-10-18] MEDS: OMEPRAZOLE 20MG CAP PO SCH (20:26)
[2021-10-18] MEDS: LORATADINE 10 MG TAB PO SCH (20:27)
[2021-10-18] MEDS: ACETAMINOPHEN TAB 650MG DOSE (2X325MG) PO PRN (20:27)
[2021-10-18] MEDS: VENLAFAXINE **XR** 75MG CAPSULE PO SCH (20:27)
[2021-10-18 21:46] VITALS: O2SAT 95
[2021-10-19] MEDS: IPRATROPIUM 0.5MG/ALBUTEROL 2.5MG INH SOL UD 3ML (DUONEB) NEB SCH ×2 (01:36→08:00)
[2021-10-19 04:00] VITALS: BP 113/68
[2021-10-19 06:38] LABS: BASO % 0.3 % (0.0-1.0); EOS # 0.2 10^3/uL (0.0-0.5); EOS % 3.3 % (0.0-3.0); HEMATOCRIT 37.7 % (36.0-47.0); LYMPH % 41.3 % (24.0-44.0); MEAN CORPUSCULAR HGB CONC 31.8 g/dl (32.0-36.5); MEAN CORPUSCULAR VOLUME 88.1 fl (80.0-96.0); MONO # 0.7 10^3/uL (0.0-0.8); MONO % 9.1 % (2.0-8.0); NEUTROPHILS # 3.3 10^3/uL (1.5-8.5); NEUTROPHILS % 44.8 % (36.0-66.0); PLATELET COUNT, AUTOMATED 413 10^3/uL (150-450); RED BLOOD COUNT 4.28 10^6/uL (4.00-5.40); WHITE BLOOD COUNT 7.3 10^3/uL (4.0-10.0)
[2021-10-19 06:48] LABS: INR 0.94
[2021-10-19 06:49] LABS: PARTIAL THROMBOPLASTIN TIME 32.1 SECONDS (25.9-37.0)
[2021-10-19 07:19] LABS: ALBUMIN 2.7 GM/DL (3.2-5.2); ALT/SGPT 63 U/L (12-78); BILIRUBIN,DIRECT 0.1 MG/DL (0.0-0.2); BILIRUBIN,TOTAL 0.3 MG/DL (0.2-1.0); BLOOD UREA NITROGEN 14 MG/DL (7-18); CALCIUM LEVEL 8.4 MG/DL (8.5-10.1); CARBON DIOXIDE LEVEL 28 MEQ/L (21-32); CHLORIDE LEVEL 102 MEQ/L (98-107); CREATININE FOR GFR 0.64 MG/DL (0.55-1.30); FERRITIN 606 NG/ML (8-252); GLOMERULAR FILTRATION RATE > 60.0 (>60); GLUCOSE, FASTING 82 MG/DL (70-100); LDH LACTATE DEHYDROGENASE 260 U/L (84-246); NT-PRO BNP 375 PG/ML (<125); PHOSPHORUS LEVEL 3.5 MG/DL (2.5-4.9); SODIUM LEVEL 137 MEQ/L (136-145); TOTAL PROTEIN 5.2 GM/DL (6.4-8.2)
[2021-10-19 07:20] LABS: POTASSIUM SERUM 4.4 MEQ/L (3.5-5.1)
[2021-10-19] MEDS: FLUTICASONE HFA 110 MCG 12 GM INHALER (FLOVENT) INH SCH (08:00)
[2021-10-19] MEDS: LACTOBACILLUS ACIDOPHILUS CAP (BACID) PO SCH (08:10)
[2021-10-19] MEDS: dexameTHASONE 4 MG/ML 1ML VIAL (J1100 PER 1MG) IV SCH (08:10)
[2021-10-19] MEDS: GABAPENTIN 400MG CAP PO SCH (08:10)
[2021-10-19] MEDS: BACLOFEN 10 MG TAB PO SCH (08:11)
[2021-10-19] MEDS: ENOXAPARIN 40MG/0.4ML SYRINGE (J1650 PER 10MG) SC SCH (08:11)
[2021-10-19] MEDS: SODIUM CHLORIDE 0.9% INJ 10 ML SYR IV SCH (08:12)
[2021-10-19] MEDS ORDERED: BENZ-18 PO (10:36)
[2021-10-19] MEDS ORDERED: PRED10TA2 PO (10:36)
[2021-10-19 19:06] LABS: MAGNESIUM LEVEL 1.7 MG/DL (1.7-2.2)
== END 2021-10-19 11:15 | disposition hospice, home (50) | DRG 137 ==
LOC: M ED 13:57 → EDBD 13:57 → M ED INP 19:41 → M 4MAIN 10-14 12:45
PROVIDERS: ADMIT Family Medicine; ATTEND Internal Medicine
PROC: XW033E5 Introduction of Remdesivir Anti-infective into Peripheral Vein, Percutaneous Approach, New Technology Group 5 (ICD-10-PCS; principal; 2021-10-13)
PROC: 3E0333Z Introduction of Anti-inflammatory into Peripheral Vein, Percutaneous Approach (ICD-10-PCS; 2021-10-13)
DX: U07.1 COVID-19 (principal); J96.01 Acute respiratory failure with hypoxia; G36.0 Neuromyelitis optica [Devic]; J45.909 Unspecified asthma, uncomplicated; K21.9 Gastro-esophageal reflux disease without esophagitis; G43.909 Migraine, unspecified, not intractable, without status migrainosus; C53.9 Malignant neoplasm of cervix uteri, unspecified; J12.82 Pneumonia due to coronavirus disease 2019; F32.A Depression, unspecified; F41.9 Anxiety disorder, unspecified; Z79.899 Other long term (current) drug therapy; Z88.0 Allergy status to penicillin; Z88.2 Allergy status to sulfonamides; Z88.8 Allergy status to other drugs, medicaments and biological substances; Z91.013 Allergy to seafood; K76.0 Fatty (change of) liver, not elsewhere classified

== ENCOUNTER → 2021-11-06 | Outpatient (CLI) | payer OTHER ==
[~2021-11-06] MED LIST changes: +ARNU1INH PO; +BENZ-18 PO; +MONT10TA97 PO; +PRED10TA2 PO; +VENL75CA47 PO
[2021-11-06 13:45] LABS: ALBUMIN 3.6 GM/DL (3.2-5.2); ALT/SGPT 37 U/L (12-78); BILIRUBIN,TOTAL 0.5 MG/DL (0.2-1.0); BLOOD UREA NITROGEN 7 MG/DL (7-18); CALCIUM LEVEL 9.3 MG/DL (8.5-10.1); CARBON DIOXIDE LEVEL 28 MEQ/L (21-32); CHLORIDE LEVEL 102 MEQ/L (98-107); CREATININE FOR GFR 0.78 MG/DL (0.55-1.30); GLOMERULAR FILTRATION RATE > 60.0 (>60); GLUCOSE, FASTING 104 MG/DL (70-100); POTASSIUM SERUM 4.3 MEQ/L (3.5-5.1); SODIUM LEVEL 138 MEQ/L (136-145); TOTAL PROTEIN 6.6 GM/DL (6.4-8.2)
== END ==
LOC: M PLALAB 09:23
PROVIDERS: ATTEND Student in an Organized Health Care Education/Training Program
DX: K76.0 Fatty (change of) liver, not elsewhere classified (principal)

== ENCOUNTER 2021-11-30 13:00 | Outpatient (RCR) | payer OTHER | END 2021-12-07 | LOC: M PT 13:00 | PROVIDERS: ATTEND Student in an Organized Health Care Education/Training Program | DX: R53.81 Other malaise (principal) ==

== ENCOUNTER 2022-01-04 13:00 | Outpatient (RCR) | payer OTHER | END 2022-01-06 | LOC: M PT 13:00 | PROVIDERS: ATTEND Student in an Organized Health Care Education/Training Program | DX: R53.81 Other malaise (principal) ==

== ENCOUNTER → 2022-01-04 | Outpatient (CLI) | payer OTHER, MEDICAID | LOC: M SOG 07:41 | PROVIDERS: ATTEND Physician Assistant | DX: M25.562 Pain in left knee (principal) ==

== ENCOUNTER → 2022-01-08 | Outpatient (CLI) | payer OTHER | LOC: M PLAIMG 10:43 | PROVIDERS: ATTEND Orthopaedic Surgery Hand Surgery | DX: M94.262 Chondromalacia, left knee (principal) ==

== ENCOUNTER → 2022-07-07 | Outpatient (REF) | payer OTHER, MEDICAID | LOC: M LAB REF 19:38 | PROVIDERS: ATTEND Physician Assistant Medical | DX: R50.9 Fever, unspecified (principal); R05.9 Cough, unspecified ==

== ENCOUNTER → 2022-09-27 | Outpatient (CLI) | payer OTHER ==
[~2022-09-27] MED LIST changes: +NYST-38 PO; -NYST50SS PO
== END ==
LOC: M PLAIMG 16:05
PROVIDERS: ATTEND Student in an Organized Health Care Education/Training Program
DX: R07.81 Pleurodynia (principal)

== ENCOUNTER → 2023-02-27 | Outpatient (CLI) | payer OTHER ==
[~2023-02-27] MED LIST changes: -ASMA16.7 INH; +MOME13HF4 INH; +NEUR600T PO; +RITU50VL IV
== END ==
LOC: M WUC 08:33
PROVIDERS: ATTEND Nurse Practitioner Family
DX: R05.9 Cough, unspecified (principal); R07.82 Intercostal pain

== ENCOUNTER → 2023-03-06 | Outpatient (CLI) | payer OTHER ==
[~2023-03-06] MED LIST changes: +ISOVUE-370 76% 100ML VIAL As Ordered ONE
== END ==
LOC: M RAD 11:00
PROVIDERS: ATTEND Student in an Organized Health Care Education/Training Program
DX: R07.81 Pleurodynia (principal)
CPT/HCPCS: 71275; Q9967

== ENCOUNTER 2023-04-23 10:59 | Day surgery (SDC) | payer OTHER ==
[~2023-04-23] VITALS: Ht 160 cm; Wt 113.3 kg
[~2023-04-23 10:59] MED LIST changes: -GABA-283 PO; +GABA-284 PO; -ISOVUE-370 76% 100ML VIAL As Ordered ONE; -LIDO1CRE42 TOP; +LIDO30CR18 TOP; +NS 1,000 ML IV ONE
[2023-04-23] MEDS ORDERED: fentaNYL 100 MCG/2 ML INJECTION As Ordered ONE (12:22)
[2023-04-23] MEDS ORDERED: LIDOCAINE 2% 100MG/5ML SDV (FOR ANES.) As Ordered ONE (12:23)
[2023-04-23] MEDS ORDERED: propofoL 200 MG/20 ML VIAL As Ordered ONE (12:23)
[2023-04-23 13:08] VITALS: TEMP 97.1
[2023-04-23 13:28] VITALS: BP 120/75; O2SAT 98
== END 2023-04-23 13:45 | disposition home or self-care (01) ==
LOC: M OPP 10:59
PROVIDERS: ATTEND Internal Medicine Gastroenterology
DX: K58.9 Irritable bowel syndrome, unspecified (principal); D50.9 Iron deficiency anemia, unspecified; F17.200 Nicotine dependence, unspecified, uncomplicated; Z79.51 Long term (current) use of inhaled steroids; Z79.891 Long term (current) use of opiate analgesic; Z79.899 Other long term (current) drug therapy; Z88.0 Allergy status to penicillin; Z88.2 Allergy status to sulfonamides; Z91.013 Allergy to seafood
CPT/HCPCS: 43239; 45380; 88305; J3010

== ENCOUNTER → 2023-05-06 | Outpatient (REF) | payer OTHER ==
[~2023-05-06] MED LIST changes: -NS 1,000 ML IV ONE
== END ==
LOC: M SFHCPLAZ 15:42
PROVIDERS: ATTEND Family Medicine
DX: J40 Bronchitis, not specified as acute or chronic (principal); Z53.9 Procedure and treatment not carried out, unspecified reason

== ENCOUNTER → 2023-05-06 | Outpatient (CLI) | payer OTHER ==
[2023-05-06 17:15] LABS: BASO # 0.1 10^3/uL (0.0-0.2); BASO % 0.4 % (0.0-1.0); EOS % 0.2 % (0.0-3.0); HEMATOCRIT 41.5 % (36.0-47.0); HEMOGLOBIN 13.3 g/dl (12.0-15.5); LYMPH # 1.9 10^3/uL (1.5-5.0); LYMPH % 13.4 % (24.0-44.0); MEAN CORPUSCULAR HEMOGLOBIN 28.5 pg (27.0-33.0); MEAN CORPUSCULAR VOLUME 88.9 fl (80.0-96.0); MONO # 0.7 10^3/uL (0.0-0.8); NEUTROPHILS # 11.4 10^3/uL (1.5-8.5); NEUTROPHILS % 80.2 % (36.0-66.0); PLATELET COUNT, AUTOMATED 491 10^3/uL (150-450); RED BLOOD COUNT 4.67 10^6/uL (4.00-5.40); WHITE BLOOD COUNT 14.2 10^3/uL (4.0-10.0)
[2023-05-06 17:50] LABS: ALBUMIN 3.8 G/DL (3.2-5.2); ALKALINE PHOSPHATASE 129 U/L (46-116); ALT/SGPT 13 U/L (7.0-40); AST/SGOT < 8 U/L (<34); BILIRUBIN,TOTAL 0.2 MG/DL (0.3-1.2); BLOOD UREA NITROGEN 12 MG/DL (9-23); CALCIUM LEVEL 9.3 MG/DL (8.5-10.1); CARBON DIOXIDE LEVEL 30 MMOL/L (20-31); CHLORIDE LEVEL 103 MMOL/L (98-107); CREATININE FOR GFR 0.92 MG/DL (0.55-1.30); GLOMERULAR FILTRATION RATE > 60.0 (>58); GLUCOSE, FASTING 92 MG/DL (60-100); POTASSIUM SERUM 4.6 MMOL/L (3.5-5.1); SODIUM LEVEL 139 MMOL/L (136-145); TOTAL PROTEIN 6.4 G/DL (5.7-8.2)
[2023-05-06 18:01] LABS: PROCALCITONIN <0.04 ng/ml
== END ==
LOC: M PLAIMG 15:52 → M PLALAB 15:52
PROVIDERS: ATTEND Student in an Organized Health Care Education/Training Program
DX: J40 Bronchitis, not specified as acute or chronic (principal)

== ENCOUNTER → 2023-05-28 | Outpatient (REF) | payer OTHER | LOC: M LAB REF 21:08 | PROVIDERS: ATTEND Physician Assistant Medical | DX: R05.9 Cough, unspecified (principal) ==

== ENCOUNTER 2023-06-22 15:25 | Emergency (ER) | payer OTHER ==
[~2023-06-22] VITALS: Ht 160 cm; Wt 115.4 kg
[~2023-06-22 15:25] MED LIST changes: +IPRA0.00 INH; +NEUR800T PO; -OXYB5TAB10; +OXYB5TAB11
[2023-06-22 15:27] VITALS: TEMP 97.8
[2023-06-22] MEDS ORDERED: NS 1,000 ML IV ONE (16:45)
[2023-06-22] MEDS ORDERED: MORPHINE 4 MG/ML 1ML VIAL IV ONE (16:45)
[2023-06-22] MEDS ORDERED: IPRATROPIUM 0.5MG/ALBUTEROL 2.5MG INH SOL UD 3ML (DUONEB) NEB ONE (16:45)
[2023-06-22 17:38] LABS: BASO # 0.1 10^3/uL (0.0-0.2); BASO % 0.6 % (0.0-1.0); EOS # 0.8 10^3/uL (0.0-0.5); EOS % 5.2 % (0.0-3.0); HEMATOCRIT 40.4 % (36.0-47.0); HEMOGLOBIN 13.4 g/dl (12.0-15.5); LYMPH # 3.8 10^3/uL (1.5-5.0); LYMPH % 24.4 % (24.0-44.0); MEAN CORPUSCULAR HEMOGLOBIN 28.9 pg (27.0-33.0); MEAN CORPUSCULAR HGB CONC 33.2 g/dl (32.0-36.5); MEAN CORPUSCULAR VOLUME 87.1 fl (80.0-96.0); MONO # 1.2 10^3/uL (0.0-0.8); MONO % 7.4 % (2.0-8.0); NEUTROPHILS # 9.6 10^3/uL (1.5-8.5); PLATELET COUNT, AUTOMATED 467 10^3/uL (150-450); RED BLOOD COUNT 4.64 10^6/uL (4.00-5.40); WHITE BLOOD COUNT 15.5 10^3/uL (4.0-10.0)
[2023-06-22 17:59] LABS: INR 0.92; PROTHROMBIN TIME 12.1 SECONDS (12.5-14.5)
[2023-06-22 18:08] LABS: ALBUMIN 3.7 G/DL (3.2-5.2); ALKALINE PHOSPHATASE 131 U/L (46-116); ALT/SGPT 10 U/L (7.0-40); AST/SGOT 10 U/L (<34); BILIRUBIN,DIRECT < 0.1 MG/DL (<0.4); BILIRUBIN,TOTAL 0.2 MG/DL (0.3-1.2); BLOOD UREA NITROGEN 8 MG/DL (9-23); CALCIUM LEVEL 9.1 MG/DL (8.5-10.1); CARBON DIOXIDE LEVEL 26 MMOL/L (20-31); CHLORIDE LEVEL 107 MMOL/L (98-107); CK-MB VALUE MASS 4.9 NG/ML (<3.6); CREATININE FOR GFR 0.75 MG/DL (0.55-1.30); GLOMERULAR FILTRATION RATE > 60.0 (>58); GLUCOSE, FASTING 100 MG/DL (60-100); POTASSIUM SERUM 4.2 MMOL/L (3.5-5.1); SODIUM LEVEL 141 MMOL/L (136-145); TOTAL PROTEIN 6.3 G/DL (5.7-8.2)
[2023-06-22 18:09] LABS: THYROXINE (T4) 8.6 UG/DL (4.5-10.9)
[2023-06-22 18:10] LABS: THYROID STIMULATING HORMONE 1.894 uIU/ML (0.55-4.78)
[2023-06-22 18:23] LABS: CPK CREATINE PHOSPHOKINASE 207 U/L (34-145); MB/CK RELATIVE INDEX 2.36 (< OR =4)
[2023-06-22] MEDS ORDERED: HYDR-3713 PO (18:59)
[2023-06-22] MEDS ORDERED: BENZ200C70 PO (18:59)
[2023-06-22 20:17] VITALS: BP 120/67; O2SAT 96
== END 2023-06-22 20:20 | disposition home or self-care (01) ==
LOC: M ED 15:25
DX: S22.41XA Multiple fractures of ribs, right side, initial encounter for closed fracture (principal); M54.6 Pain in thoracic spine; X58.XXXA Exposure to other specified factors, initial encounter; R05.9 Cough, unspecified; J45.909 Unspecified asthma, uncomplicated; D50.9 Iron deficiency anemia, unspecified; G36.0 Neuromyelitis optica [Devic]; F17.200 Nicotine dependence, unspecified, uncomplicated; Z88.0 Allergy status to penicillin; Z88.2 Allergy status to sulfonamides; Z88.8 Allergy status to other drugs, medicaments and biological substances

== ENCOUNTER 2023-07-01 16:22 | Emergency (ER) | payer OTHER ==
[~2023-07-01] VITALS: Ht 160 cm; Wt 114.9 kg
[~2023-07-01 16:22] MED LIST changes: -METH-1164 PO
[2023-07-01] MEDS ORDERED: methocarbamoL 500 MG TAB PO ONE (19:55)
[2023-07-01] MEDS ORDERED: BENZONATATE 100MG CAPSULE PO ONE (19:55)
[2023-07-01] MEDS ORDERED: METH-1164 PO (19:56)
[2023-07-01] MEDS ORDERED: BENZ200C70 PO (19:56)
[2023-07-01 20:12] VITALS: BP 128/75; TEMP 98.3; O2SAT 98
== END 2023-07-01 20:14 | disposition home or self-care (01) ==
LOC: M ED 16:22
DX: S22.41XA Multiple fractures of ribs, right side, initial encounter for closed fracture (principal); M62.838 Other muscle spasm; X58.XXXA Exposure to other specified factors, initial encounter; Y92.89 Other specified places as the place of occurrence of the external cause; Y93.89 Activity, other specified; Y99.8 Other external cause status; H46.9 Unspecified optic neuritis; Z88.0 Allergy status to penicillin; Z88.2 Allergy status to sulfonamides; Z88.8 Allergy status to other drugs, medicaments and biological substances; Z91.013 Allergy to seafood; Z79.899 Other long term (current) drug therapy

== ENCOUNTER → 2023-07-01 | Outpatient (CLI) | payer OTHER ==
[~2023-07-01] MED LIST changes: +BENZ200C70 PO; +HYDR-3713 PO; +METH-1164 PO
== END ==
LOC: M PLAIMG 07:40
PROVIDERS: ATTEND Nurse Practitioner Family
DX: R10.9 Unspecified abdominal pain (principal)

== ENCOUNTER → 2023-07-15 | Outpatient (CLI) | payer OTHER ==
[~2023-07-15] MED LIST changes: +METH-1164 PO
== END ==
LOC: M PLAIMG 15:06
PROVIDERS: ATTEND Student in an Organized Health Care Education/Training Program
DX: J94.8 Other specified pleural conditions (principal)

== ENCOUNTER → 2023-07-22 | Outpatient (REF) | payer OTHER | LOC: M SFHCPLAZ 18:05 | PROVIDERS: ATTEND Family Medicine | DX: Z53.9 Procedure and treatment not carried out, unspecified reason (principal) ==

== ENCOUNTER → 2023-07-23 | Outpatient (CLI) | payer OTHER | LOC: M WHC 14:33 | PROVIDERS: ATTEND Student in an Organized Health Care Education/Training Program | DX: S22.49XA Multiple fractures of ribs, unspecified side, initial encounter for closed fracture (principal); W18.30XA Fall on same level, unspecified, initial encounter; Y92.009 Unspecified place in unspecified non-institutional (private) residence as the place of occurrence of the external cause ==

== ENCOUNTER → 2023-07-31 | Outpatient (CLI) | payer OTHER | LOC: M PLAIMG 10:06 | PROVIDERS: ATTEND Student in an Organized Health Care Education/Training Program | DX: R05.9 Cough, unspecified (principal); J98.11 Atelectasis; J21.9 Acute bronchiolitis, unspecified; S22.43XA Multiple fractures of ribs, bilateral, initial encounter for closed fracture; R59.9 Enlarged lymph nodes, unspecified; Y93.9 Activity, unspecified; Y92.9 Unspecified place or not applicable ==

== ENCOUNTER 2023-08-09 07:48 | Outpatient (CLI) | payer OTHER ==
[~2023-08-09] VITALS: Ht 160 cm; Wt 112.0 kg
[2023-08-09 07:55] VITALS: BP 134/68; O2SAT 95
[2023-08-09] MEDS ORDERED: ACETAMINOPHEN 650MG PO PRIOR TO INFUSION PO ONE (08:25)
[2023-08-09] MEDS ORDERED: IMMUNE GLOBULIN 10% 20 GM in IV 1 EA IV ONE (08:25)
[2023-08-09] MEDS ORDERED: diphenhydrAMINE 25MG PO PRIOR TO INFUSION PO ONE (08:25)
[2023-08-09] MEDS ORDERED: IMMUNE GLOBULIN 10% 5 GM in IV 1 EA IV ONE (08:25)
[2023-08-09 08:43] LABS: HEMATOCRIT 39.3 % (36.0-47.0); HEMOGLOBIN 12.9 g/dl (12.0-15.5); MEAN CORPUSCULAR HEMOGLOBIN 28.9 pg (27.0-33.0); MEAN CORPUSCULAR HGB CONC 32.8 g/dl (32.0-36.5); MEAN CORPUSCULAR VOLUME 87.9 fl (80.0-96.0); PLATELET COUNT, AUTOMATED 470 10^3/uL (150-450); RED BLOOD COUNT 4.47 10^6/uL (4.00-5.40); WHITE BLOOD COUNT 16.3 10^3/uL (4.0-10.0)
[2023-08-09 09:07] LABS: BLOOD UREA NITROGEN 13 MG/DL (9-23); CALCIUM LEVEL 9.1 MG/DL (8.5-10.1); CARBON DIOXIDE LEVEL 26 MMOL/L (20-31); CHLORIDE LEVEL 107 MMOL/L (98-107); CREATININE FOR GFR 0.68 MG/DL (0.55-1.30); GLOMERULAR FILTRATION RATE > 60.0 (>58); GLUCOSE, FASTING 103 MG/DL (60-100); POTASSIUM SERUM 4.4 MMOL/L (3.5-5.1); SODIUM LEVEL 140 MMOL/L (136-145)
[2023-08-09 10:00] VITALS: BP 122/66; O2SAT 94
[2023-08-09 10:30] VITALS: BP 112/68; O2SAT 93
[2023-08-09 11:00] VITALS: BP 114/64; O2SAT 95
[2023-08-09 11:45] VITALS: BP 118/71; O2SAT 96
== END 2023-08-09 11:45 ==
LOC: M INFU 07:48
PROVIDERS: ATTEND Internal Medicine Medical Oncology
DX: D80.1 Nonfamilial hypogammaglobulinemia (principal); Z88.0 Allergy status to penicillin; Z88.2 Allergy status to sulfonamides; Z88.8 Allergy status to other drugs, medicaments and biological substances
CPT/HCPCS: 36592; 80048; 85027; 96365; 96366; J1459

== ENCOUNTER → 2023-08-12 | Outpatient (REF) | payer OTHER | LOC: M SFHCPLAZ 16:00 | PROVIDERS: ATTEND Student in an Organized Health Care Education/Training Program | DX: D84.9 Immunodeficiency, unspecified (principal); R05.1 Acute cough ==

== ENCOUNTER → 2023-08-13 | Outpatient (REF) | payer OTHER | LOC: M SFHCPLAZ 17:06 | PROVIDERS: ATTEND Student in an Organized Health Care Education/Training Program | DX: R05.1 Acute cough (principal) ==

== ENCOUNTER → 2023-08-28 | Outpatient (CLI) | payer OTHER ==
[2023-08-28 13:03] LABS: PTH INTACT 45.7 PG/ML (18.5-88.0)
[2023-08-28 13:08] LABS: TOTAL 25(OH) VITAMIN D 10.8 NG/ML (20.0-100.0)
[2023-08-28 13:39] LABS: HIV 1&2 SCREEN NEGATIVE (NEGATIVE)
[2023-08-29 13:11] LABS: % CD8 Pos Lymph 24.3 % (12.0-35.5); %CD4 Pos Lymphs 66.7 % (30.8-58.5); ABS Basophils 0.1 x10E3/uL (0.0-0.2); ABS Eosinophils 0.6 x10E3/uL (0.0-0.4); ABS Lymphs 2.6 x10E3/uL (0.7-3.1); ABS Monocytes 1.1 x10E3/uL (0.1-0.9); ABS Neutophils 8.5 x10E3/uL (1.4-7.0); Abs CD4 Helper 1734 /uL (359-1519); Abs CD8 Suppres 632 /uL (109-897); CD4/CD8 Ratio 2.74 (0.92-3.72); Eosinophils 5 % (Not Estab.); HCT 39.4 % (34.0-46.6); HGB 12.7 g/dL (11.1-15.9); Immature Grans 0 % (Not Estab.); Lymphocytes 20 % (Not Estab.); MCH 28.4 pg (26.6-33.0); MCHC 32.2 g/dL (31.5-35.7); MCV 88 fL (79-97); Monocytes 9 % (Not Estab.); Neutrophils 65 % (Not Estab.); Platelets 449 x10E3/uL (150-450); RBC 4.47 x10E6/uL (3.77-5.28); RDW 13.1 % (11.7-15.4); WBC 12.9 x10E3/uL (3.4-10.8)
== END ==
LOC: M PLALAB 08:44
PROVIDERS: ATTEND Student in an Organized Health Care Education/Training Program
DX: D84.9 Immunodeficiency, unspecified (principal)

== ENCOUNTER 2023-09-06 08:05 | Outpatient (CLI) | payer OTHER ==
[~2023-09-06] VITALS: Ht 160 cm; Wt 114.0 kg
[~2023-09-06 08:05] MED LIST changes: +ACETAMINOPHEN TAB 650MG DOSE (2X325MG) PO ONE; +IMMUNE GLOBULIN 10% 20 GM in IV 1 EA IV ONE; +IMMUNE GLOBULIN 10% 5 GM in IV 1 EA IV ONE; +diphenhydrAMINE 25MG CAP PO ONE
[2023-09-06 08:14] VITALS: BP 133/85; O2SAT 96
[2023-09-06] MEDS ORDERED: IMMUNE GLOBULIN 10% 20 GM in IV 1 EA IV ONE (08:25)
[2023-09-06] MEDS ORDERED: IMMUNE GLOBULIN 10% 5 GM in IV 1 EA IV ONE (08:25)
[2023-09-06 09:15] VITALS: BP 130/60; O2SAT 96
[2023-09-06 09:45] VITALS: BP 115/66; O2SAT 97
[2023-09-06 10:15] VITALS: BP 112/74; O2SAT 98
[2023-09-06 10:50] VITALS: BP 131/74; O2SAT 99
== END 2023-09-06 11:00 | disposition home or self-care (01) ==
LOC: M INFU 08:05
PROVIDERS: ATTEND Internal Medicine Medical Oncology
DX: D80.0 Hereditary hypogammaglobulinemia (principal); Z88.0 Allergy status to penicillin; Z88.2 Allergy status to sulfonamides; Z88.8 Allergy status to other drugs, medicaments and biological substances; Z91.013 Allergy to seafood
CPT/HCPCS: 96365; 96366; J1459

== ENCOUNTER → 2023-09-16 | Outpatient (CLI) | payer OTHER ==
[~2023-09-16] MED LIST changes: -ACETAMINOPHEN TAB 650MG DOSE (2X325MG) PO ONE; -IMMUNE GLOBULIN 10% 20 GM in IV 1 EA IV ONE; -IMMUNE GLOBULIN 10% 5 GM in IV 1 EA IV ONE; -diphenhydrAMINE 25MG CAP PO ONE
== END ==
LOC: M RAD 16:34
PROVIDERS: ATTEND Physician Assistant
DX: J32.8 Other chronic sinusitis (principal)

== ENCOUNTER → 2023-10-04 | Outpatient (CLI) | payer OTHER ==
[~2023-10-04] MED LIST changes: +ACETAMINOPHEN TAB 650MG DOSE (2X325MG) PO ONE; +IMMUNE GLOBULIN 10% 20 GM in IV 1 EA IV ONE; +IMMUNE GLOBULIN 10% 5 GM in IV 1 EA IV ONE; +diphenhydrAMINE 25MG CAP PO ONE
[2023-10-04 06:55] VITALS: BP 119/65; O2SAT 98
[2023-10-04 07:56] LABS: HEMATOCRIT 38.6 % (36.0-47.0); HEMOGLOBIN 12.7 g/dl (12.0-15.5); MEAN CORPUSCULAR HEMOGLOBIN 28.3 pg (27.0-33.0); MEAN CORPUSCULAR HGB CONC 32.9 g/dl (32.0-36.5); PLATELET COUNT, AUTOMATED 418 10^3/uL (150-450); RED BLOOD COUNT 4.49 10^6/uL (4.00-5.40)
[2023-10-04 08:24] LABS: BLOOD UREA NITROGEN 11 MG/DL (9-23); CALCIUM LEVEL 8.9 MG/DL (8.5-10.1); CARBON DIOXIDE LEVEL 24 MMOL/L (20-31); CHLORIDE LEVEL 107 MMOL/L (98-107); CREATININE FOR GFR 0.72 MG/DL (0.55-1.30); GLOMERULAR FILTRATION RATE > 60.0 (>58); GLUCOSE, FASTING 126 MG/DL (60-100); POTASSIUM SERUM 4.3 MMOL/L (3.5-5.1); SODIUM LEVEL 136 MMOL/L (136-145)
[2023-10-04 08:30] VITALS: BP 120/60; O2SAT 97
[2023-10-04 09:00] VITALS: BP 114/60; O2SAT 97
[2023-10-04 09:30] VITALS: BP 115/58; O2SAT 98
[2023-10-04 10:00] VITALS: BP 99/56; O2SAT 97
== END ==
LOC: M INFU 06:48
PROVIDERS: ATTEND Internal Medicine Medical Oncology
DX: D80.1 Nonfamilial hypogammaglobulinemia (principal); Z88.0 Allergy status to penicillin; Z88.2 Allergy status to sulfonamides; Z88.8 Allergy status to other drugs, medicaments and biological substances
CPT/HCPCS: 80048; 85027; 96365; 96366; J1459

== ENCOUNTER 2023-11-01 07:45 | Outpatient (CLI) | payer OTHER ==
[~2023-11-01] VITALS: Ht 160 cm; Wt 112.0 kg
[~2023-11-01 07:45] MED LIST changes: -ACETAMINOPHEN TAB 650MG DOSE (2X325MG) PO ONE; -IMMUNE GLOBULIN 10% 20 GM in IV 1 EA IV ONE; -IMMUNE GLOBULIN 10% 5 GM in IV 1 EA IV ONE; -OXYB5TAB11; +OXYB5TAB14; -diphenhydrAMINE 25MG CAP PO ONE
[2023-11-01 08:08] VITALS: BP 114/77; O2SAT 100
[2023-11-01] MEDS: ACETAMINOPHEN 650MG PO PRIOR TO INFUSION PO ONE (08:18)
[2023-11-01] MEDS: diphenhydrAMINE 25MG PO PRIOR TO INFUSION PO ONE (08:18)
[2023-11-01 08:37] LABS: HEMATOCRIT 38.9 % (36.0-47.0); HEMOGLOBIN 12.8 g/dl (12.0-15.5); MEAN CORPUSCULAR HEMOGLOBIN 28.6 pg (27.0-33.0); MEAN CORPUSCULAR HGB CONC 32.9 g/dl (32.0-36.5); MEAN CORPUSCULAR VOLUME 86.8 fl (80.0-96.0); PLATELET COUNT, AUTOMATED 445 10^3/uL (150-450); RED BLOOD COUNT 4.48 10^6/uL (4.00-5.40); WHITE BLOOD COUNT 10.7 10^3/uL (4.0-10.0)
[2023-11-01] MEDS: IMMUNE GLOBULIN 10% 5 GM in IV 1 EA IV ONE (08:44)
[2023-11-01] MEDS: IMMUNE GLOBULIN 10% 20 GM in IV 1 EA IV ONE (08:55)
[2023-11-01 09:00] VITALS: BP 105/67; O2SAT 98
[2023-11-01 09:02] LABS: BLOOD UREA NITROGEN 8 MG/DL (9-23); CALCIUM LEVEL 8.8 MG/DL (8.5-10.1); CARBON DIOXIDE LEVEL 24 MMOL/L (20-31); CHLORIDE LEVEL 107 MMOL/L (98-107); CREATININE FOR GFR 0.69 MG/DL (0.55-1.30); GLOMERULAR FILTRATION RATE > 60.0 (>58); GLUCOSE, FASTING 102 MG/DL (60-100); POTASSIUM SERUM 4.2 MMOL/L (3.5-5.1); SODIUM LEVEL 138 MMOL/L (136-145)
[2023-11-01 09:30] VITALS: BP 135/54; O2SAT 97
[2023-11-01 10:00] VITALS: BP 107/59; O2SAT 99
[2023-11-01 10:30] VITALS: BP 118/68; O2SAT 97
== END 2023-11-01 10:30 ==
LOC: M INFU 07:45
PROVIDERS: ATTEND Internal Medicine Medical Oncology
DX: D80.1 Nonfamilial hypogammaglobulinemia (principal); Z88.0 Allergy status to penicillin; Z88.2 Allergy status to sulfonamides; Z88.8 Allergy status to other drugs, medicaments and biological substances
CPT/HCPCS: 80048; 85027; 96365; 96366; J1459

== ENCOUNTER 2023-11-29 07:45 | Outpatient (CLI) | payer OTHER ==
[~2023-11-29] VITALS: Ht 160 cm; Wt 111.3 kg
[2023-11-29 07:45] VITALS: BP 144/70; O2SAT 97
[2023-11-29] MEDS: ACETAMINOPHEN 650MG PO PRIOR TO INFUSION PO ONE (07:58)
[2023-11-29] MEDS: diphenhydrAMINE 25MG PO PRIOR TO INFUSION PO ONE (07:58)
[2023-11-29 08:32] LABS: HEMATOCRIT 38.5 % (36.0-47.0); HEMOGLOBIN 12.6 g/dl (12.0-15.5); MEAN CORPUSCULAR HEMOGLOBIN 28.6 pg (27.0-33.0); MEAN CORPUSCULAR HGB CONC 32.7 g/dl (32.0-36.5); MEAN CORPUSCULAR VOLUME 87.3 fl (80.0-96.0); PLATELET COUNT, AUTOMATED 366 10^3/uL (150-450); RED BLOOD COUNT 4.41 10^6/uL (4.00-5.40); WHITE BLOOD COUNT 11.3 10^3/uL (4.0-10.0)
[2023-11-29] MEDS: IMMUNE GLOBULIN 10% 20 GM in IV 1 EA IV ONE (09:01)
[2023-11-29] MEDS: IMMUNE GLOBULIN 10% 5 GM in IV 1 EA IV ONE (09:03)
[2023-11-29 09:04] LABS: BLOOD UREA NITROGEN 9 MG/DL (9-23); CALCIUM LEVEL 8.5 MG/DL (8.5-10.1); CARBON DIOXIDE LEVEL 25 MMOL/L (20-31); CHLORIDE LEVEL 106 MMOL/L (98-107); CREATININE FOR GFR 0.71 MG/DL (0.55-1.30); GLOMERULAR FILTRATION RATE > 60.0 (>58); GLUCOSE, FASTING 109 MG/DL (60-100); POTASSIUM SERUM 4.3 MMOL/L (3.5-5.1); SODIUM LEVEL 135 MMOL/L (136-145)
[2023-11-29 09:30] VITALS: BP 103/68; O2SAT 97
[2023-11-29 10:00] VITALS: BP 124/59; O2SAT 96
[2023-11-29 10:30] VITALS: BP 111/55; O2SAT 100
[2023-11-29 11:00] VITALS: BP 116/64; O2SAT 100
[2023-11-29 11:45] VITALS: BP 120/70; O2SAT 97
[2023-11-29] MEDS: SODIUM CHLORIDE 0.9% INJ 10 ML SYR IV SCH (11:59)
== END 2023-11-29 11:45 ==
LOC: M INFU 07:45
PROVIDERS: ATTEND Internal Medicine Medical Oncology
DX: D80.1 Nonfamilial hypogammaglobulinemia (principal); Z88.0 Allergy status to penicillin; Z88.2 Allergy status to sulfonamides; Z88.8 Allergy status to other drugs, medicaments and biological substances
CPT/HCPCS: 80048; 85027; 96365; 96366; J1459

== ENCOUNTER 2023-12-27 08:00 | Outpatient (CLI) | payer OTHER ==
[~2023-12-27] VITALS: Ht 160 cm; Wt 111.0 kg
[2023-12-27 08:00] VITALS: BP 129/80; O2SAT 96
[~2023-12-27 08:00] MED LIST changes: +ALBUTEROL SULFATE 2.5MG/0.5ML INH NEB SOLN INH PRN; +EPINEPHrine INJ 1 MG/ML 1ML AMP IM PRN; +NS 1,000 ML IV SCH; +diphenhydrAMINE 50MG/ML VIAL IV PRN; +methylPREDNISolone 125MG 2ML VIAL IV PRN
[2023-12-27] MEDS: diphenhydrAMINE 25MG PO PRIOR TO INFUSION PO ONE (08:14)
[2023-12-27] MEDS: ACETAMINOPHEN 650MG PO PRIOR TO INFUSION PO ONE (08:15)
[2023-12-27] MEDS: IMMUNE GLOBULIN 10% 20 GM in IV 1 EA IV ONE (08:24)
[2023-12-27] MEDS: IMMUNE GLOBULIN 10% 5 GM in IV 1 EA IV ONE (08:25)
[2023-12-27 09:00] VITALS: BP 131/65; O2SAT 97
[2023-12-27 09:30] VITALS: BP 127/64; O2SAT 98
[2023-12-27 10:40] VITALS: BP 114/67; O2SAT 100
== END 2023-12-27 10:40 | disposition home or self-care (01) ==
LOC: M INFU 08:00
PROVIDERS: ATTEND Internal Medicine Medical Oncology
DX: D80.1 Nonfamilial hypogammaglobulinemia (principal); Z88.0 Allergy status to penicillin; Z88.2 Allergy status to sulfonamides; Z88.8 Allergy status to other drugs, medicaments and biological substances
CPT/HCPCS: 96365; 96366; J1459

== ENCOUNTER → 2023-12-30 | Outpatient (CLI) | payer OTHER ==
[~2023-12-30] MED LIST changes: -ALBUTEROL SULFATE 2.5MG/0.5ML INH NEB SOLN INH PRN; -EPINEPHrine INJ 1 MG/ML 1ML AMP IM PRN; -NS 1,000 ML IV SCH; -diphenhydrAMINE 50MG/ML VIAL IV PRN; -methylPREDNISolone 125MG 2ML VIAL IV PRN
[2023-12-30 13:01] LABS: BASO # 0.1 10^3/uL (0.0-0.2); BASO % 0.8 % (0.0-1.0); EOS # 0.5 10^3/uL (0.0-0.5); EOS % 4.7 % (0.0-3.0); HEMATOCRIT 40.6 % (36.0-47.0); HEMOGLOBIN 12.9 g/dl (12.0-15.5); LYMPH # 2.4 10^3/uL (1.5-5.0); LYMPH % 24.2 % (24.0-44.0); MEAN CORPUSCULAR HEMOGLOBIN 28.5 pg (27.0-33.0); MEAN CORPUSCULAR HGB CONC 31.8 g/dl (32.0-36.5); MEAN CORPUSCULAR VOLUME 89.6 fl (80.0-96.0); MONO # 0.9 10^3/uL (0.0-0.8); MONO % 9.5 % (2.0-8.0); NEUTROPHILS % 60.5 % (36.0-66.0); PLATELET COUNT, AUTOMATED 491 10^3/uL (150-450); RED BLOOD COUNT 4.53 10^6/uL (4.00-5.40); WHITE BLOOD COUNT 9.8 10^3/uL (4.0-10.0)
[2023-12-30 13:04] LABS: ALBUMIN 3.5 G/DL (3.2-5.2); ALKALINE PHOSPHATASE 127 U/L (46-116); ALT/SGPT 20 U/L (7.0-40); AST/SGOT 11 U/L (<34); BILIRUBIN,TOTAL 0.2 MG/DL (0.3-1.2); BLOOD UREA NITROGEN 12 MG/DL (9-23); CALCIUM LEVEL 8.9 MG/DL (8.5-10.1); CARBON DIOXIDE LEVEL 29 MMOL/L (20-31); CHLORIDE LEVEL 103 MMOL/L (98-107); CHOLESTEROL LEVEL 189 MG/DL (<200); CREATININE FOR GFR 0.83 MG/DL (0.55-1.30); GLOMERULAR FILTRATION RATE > 60.0 (>58); GLUCOSE, FASTING 110 MG/DL (60-100); HDL CHOLESTEROL 42.9 MG/DL (>40); LDL CHOLESTEROL 112.5 MG/DL (<100); NON-HDL-C 146.1 MG/DL; POTASSIUM SERUM 4.4 MMOL/L (3.5-5.1); SODIUM LEVEL 136 MMOL/L (136-145); TOTAL PROTEIN 6.7 G/DL (5.7-8.2); TRIGLYCERIDES LEVEL 168 MG/DL (<150)
[2023-12-30 13:33] LABS: ERYTHROCYTE SEDIMENTATION RATE 19 mm/hr (0-20)
== END ==
LOC: M PLALAB 10:53
PROVIDERS: ATTEND Student in an Organized Health Care Education/Training Program
DX: Z00.00 Encounter for general adult medical examination without abnormal findings (principal)

== ENCOUNTER 2024-01-03 06:49 | Outpatient (CLI) | payer OTHER ==
[~2024-01-03] VITALS: Ht 160 cm; Wt 111.0 kg
[2024-01-03 07:00] VITALS: BP 138/90; O2SAT 96
[2024-01-03] MEDS: IRON SUCROSE 200 MG in NS 100 ML OVER 1 HR IV ONE (07:36)
[2024-01-03 08:49] VITALS: BP 136/83; O2SAT 96
== END 2024-01-03 09:00 ==
LOC: M INFU 06:49
PROVIDERS: ATTEND Nurse Practitioner
DX: D50.9 Iron deficiency anemia, unspecified (principal); Z88.0 Allergy status to penicillin; Z88.2 Allergy status to sulfonamides; Z88.8 Allergy status to other drugs, medicaments and biological substances
CPT/HCPCS: 96365; J1756

== ENCOUNTER 2024-01-10 08:05 | Outpatient (CLI) | payer OTHER ==
[~2024-01-10] VITALS: Ht 91.4 cm; Wt 111.0 kg
[2024-01-10 08:05] VITALS: BP 116/68; O2SAT 98
[~2024-01-10 08:05] MED LIST changes: +DOXY-323; -DOXY-443; +FAMO10TA50 PO; +INUL2TAB PO; +IVIG; +TIZA4CAP PO
[2024-01-10] MEDS: IRON SUCROSE 200 MG in NS 100 ML OVER 1 HR IV ONE (08:24)
[2024-01-10 09:32] VITALS: BP 134/104; O2SAT 98
== END 2024-01-10 09:32 ==
LOC: M INFU 08:05
PROVIDERS: ATTEND Nurse Practitioner
DX: D50.9 Iron deficiency anemia, unspecified (principal)
CPT/HCPCS: 96365; J1756

== ENCOUNTER 2024-01-17 09:45 | Outpatient (CLI) | payer OTHER ==
[~2024-01-17] VITALS: Ht 160 cm; Wt 113.0 kg
[2024-01-17 09:45] VITALS: BP 119/66; O2SAT 100
[2024-01-17] MEDS: IRON SUCROSE 200 MG in NS 100 ML OVER 1 HR IV ONE (10:05)
[2024-01-17 11:10] VITALS: BP 128/83; O2SAT 97
== END 2024-01-17 11:10 | disposition home or self-care (01) ==
LOC: M INFU 09:45
PROVIDERS: ATTEND Nurse Practitioner
DX: D50.9 Iron deficiency anemia, unspecified (principal); Z88.0 Allergy status to penicillin; Z88.1 Allergy status to other antibiotic agents; Z88.2 Allergy status to sulfonamides; Z88.8 Allergy status to other drugs, medicaments and biological substances; Z91.013 Allergy to seafood; Z91.010 Allergy to peanuts
CPT/HCPCS: 96365; J1756

== ENCOUNTER 2024-01-20 10:49 | Day surgery (SDC) | payer OTHER ==
[~2024-01-20] VITALS: Ht 160 cm; Wt 113.4 kg
[~2024-01-20 10:49] MED LIST changes: +LR 1,000 ML IV SCH
[2024-01-20] MEDS ORDERED: SUGAMMADEX SODIUM 500 MG/5 ML VIAL (BRIDION) As Ordered ONE (11:36)
[2024-01-20] MEDS ORDERED: ONDANSETRON 4MG 2ML VIAL As Ordered ONE (11:36)
[2024-01-20] MEDS ORDERED: ROCURONIUM BROMIDE 50MG/5ML VIAL As Ordered ONE (11:36)
[2024-01-20] MEDS ORDERED: LIDOCAINE 2% 100MG/5ML SDV (FOR ANES.) As Ordered ONE (11:36)
[2024-01-20] MEDS ORDERED: propofoL 200 MG/20 ML VIAL As Ordered ONE (11:36)
[2024-01-20] MEDS ORDERED: MIDAZOLAM INJ 2MG/2ML VIAL As Ordered ONE (11:37)
[2024-01-20] MEDS ORDERED: fentaNYL 250 MCG/5 ML INJECTION As Ordered ONE (11:37)
[2024-01-20] MEDS: COCAINE 4% 4ML NASAL SOLUTION BTL As Ordered ONE (13:24)
[2024-01-20] MEDS: LIDOCAINE W/EPINEPHRINE 1% 20ML VIAL As Ordered ONE (13:49)
[2024-01-20] MEDS: OXYMETAZOLINE 0.05% NASAL SPRAY (AFRIN) As Ordered ONE (13:52)
[2024-01-20] MEDS ORDERED: ONDANSETRON 4MG 2ML VIAL IV PRN (14:00)
[2024-01-20] MEDS ORDERED: LR 1,000 ML IV SCH ×2 (14:00→14:20)
[2024-01-20] MEDS: fentaNYL 100 MCG/2 ML INJECTION IV PRN (14:19)
[2024-01-20] MEDS ORDERED: NORCO, ANEXSIA 5/325MG TABLET (HYDROcodone/ACETAMINOPHEN) PO PRN (14:25)
[2024-01-20] MEDS: HYDROMORPHONE HCL 0.5 MG/ 0.5 ML SYRINGE IV PRN (14:27)
[2024-01-20] MEDS: oxyCODONE 5MG TAB PO PRN (14:46)
[2024-01-20 15:35] VITALS: BP 100/55; TEMP 98.3; O2SAT 97
== END 2024-01-20 16:05 | disposition home or self-care (01) ==
LOC: M SDC 10:49
PROVIDERS: ATTEND Otolaryngology
DX: J34.2 Deviated nasal septum (principal); J34.3 Hypertrophy of nasal turbinates; R06.83 Snoring; Z91.048 Other nonmedicinal substance allergy status; Z91.013 Allergy to seafood; Z88.8 Allergy status to other drugs, medicaments and biological substances; Z88.0 Allergy status to penicillin; Z88.2 Allergy status to sulfonamides; Z88.3 Allergy status to other anti-infective agents; Z91.018 Allergy to other foods; Z79.899 Other long term (current) drug therapy; F17.210 Nicotine dependence, cigarettes, uncomplicated
CPT/HCPCS: 30140; 30520; C9143; J1100; J1170; J2250; J2405; J3010

== ENCOUNTER 2024-01-24 09:25 | Outpatient (CLI) | payer OTHER ==
[~2024-01-24] VITALS: Ht 160 cm; Wt 113.0 kg
[2024-01-24 09:25] VITALS: BP 123/72; O2SAT 95
[~2024-01-24 09:25] MED LIST changes: +ALBUTEROL SULFATE 2.5MG/0.5ML INH NEB SOLN INH PRN; +EPINEPHrine INJ 1 MG/ML 1ML AMP IM PRN; -LR 1,000 ML IV SCH; +NS 1,000 ML IV SCH; +diphenhydrAMINE 50MG/ML VIAL IV PRN; +methylPREDNISolone 125MG 2ML VIAL IV PRN
[2024-01-24] MEDS: ACETAMINOPHEN 650MG PO PRIOR TO INFUSION PO ONE (09:50)
[2024-01-24] MEDS: diphenhydrAMINE 25MG PO PRIOR TO INFUSION PO ONE (09:50)
[2024-01-24] MEDS: IMMUNE GLOBULIN 10% 20 GM in IV 1 EA IV ONE (09:57)
[2024-01-24] MEDS: IMMUNE GLOBULIN 10% 5 GM in IV 1 EA IV ONE (09:58)
[2024-01-24 10:30] VITALS: BP 120/66; O2SAT 97
[2024-01-24 11:00] VITALS: BP 121/65; O2SAT 97
[2024-01-24 11:30] VITALS: BP 127/74; O2SAT 97
[2024-01-24 12:20] VITALS: BP 123/63; O2SAT 99
== END 2024-01-24 12:10 | disposition home or self-care (01) ==
LOC: M INFU 09:25
PROVIDERS: ATTEND Nurse Practitioner
DX: D80.1 Nonfamilial hypogammaglobulinemia (principal); Z88.0 Allergy status to penicillin; Z88.2 Allergy status to sulfonamides; Z88.8 Allergy status to other drugs, medicaments and biological substances
CPT/HCPCS: 96365; 96366; J1459

== ENCOUNTER 2024-01-27 09:50 | Outpatient (CLI) | payer OTHER ==
[~2024-01-27] VITALS: Ht 160 cm; Wt 113.0 kg
[~2024-01-27 09:50] MED LIST changes: -ALBUTEROL SULFATE 2.5MG/0.5ML INH NEB SOLN INH PRN; -EPINEPHrine INJ 1 MG/ML 1ML AMP IM PRN; -NS 1,000 ML IV SCH; -diphenhydrAMINE 50MG/ML VIAL IV PRN; -methylPREDNISolone 125MG 2ML VIAL IV PRN
[2024-01-27] MEDS: IRON SUCROSE 200 MG in NS 100 ML OVER 1 HR IV ONE (10:25)
[2024-01-27 12:34] VITALS: BP 120/74; O2SAT 99
== END 2024-01-27 11:40 | disposition home or self-care (01) ==
LOC: M INFU 09:50
PROVIDERS: ATTEND Nurse Practitioner
DX: D50.9 Iron deficiency anemia, unspecified (principal); Z88.0 Allergy status to penicillin; Z88.2 Allergy status to sulfonamides; Z88.8 Allergy status to other drugs, medicaments and biological substances
CPT/HCPCS: 96365; J1756

== ENCOUNTER 2024-02-04 08:50 | Outpatient (CLI) | payer OTHER ==
[~2024-02-04] VITALS: Ht 190.5 cm; Wt 113.0 kg
[2024-02-04 08:55] VITALS: BP 119/68; O2SAT 98
[2024-02-04] MEDS: IRON SUCROSE 200 MG in NS 100 ML OVER 1 HR IV ONE (09:25)
[2024-02-04 10:30] VITALS: BP 123/80; O2SAT 98
== END 2024-02-04 10:30 | disposition home or self-care (01) ==
LOC: M INFU 08:50
PROVIDERS: ATTEND Nurse Practitioner
DX: D50.9 Iron deficiency anemia, unspecified (principal); Z88.0 Allergy status to penicillin; Z88.2 Allergy status to sulfonamides; Z88.8 Allergy status to other drugs, medicaments and biological substances
CPT/HCPCS: 96365; J1756

== ENCOUNTER 2024-02-21 08:00 | Outpatient (CLI) | payer OTHER ==
[~2024-02-21] VITALS: Ht 160 cm; Wt 110.9 kg
[~2024-02-21 08:00] MED LIST changes: +ALBUTEROL SULFATE 2.5MG/0.5ML INH NEB SOLN INH PRN; +EPINEPHrine INJ 1 MG/ML 1ML AMP IM PRN; +NS 1,000 ML IV SCH; +diphenhydrAMINE 50MG/ML VIAL IV PRN; +methylPREDNISolone 125MG 2ML VIAL IV PRN
[2024-02-21 08:45] VITALS: BP 136/77; O2SAT 98
[2024-02-21] MEDS: ACETAMINOPHEN 650MG PO PRIOR TO INFUSION PO ONE (08:59)
[2024-02-21] MEDS: diphenhydrAMINE 25MG PO PRIOR TO INFUSION PO ONE (09:01)
[2024-02-21] MEDS: IMMUNE GLOBULIN 10% 20 GM in IV 1 EA IV ONE (09:14)
[2024-02-21] MEDS: IMMUNE GLOBULIN 10% 5 GM in IV 1 EA IV ONE (09:15)
[2024-02-21 10:00] VITALS: BP 121/66; O2SAT 98
[2024-02-21 10:30] VITALS: BP 147/87; O2SAT 97
[2024-02-21 11:05] VITALS: BP 135/76; O2SAT 99
== END 2024-02-21 11:05 ==
LOC: M INFU 08:00
PROVIDERS: ATTEND Nurse Practitioner
DX: D80.1 Nonfamilial hypogammaglobulinemia (principal); Z88.0 Allergy status to penicillin; Z88.2 Allergy status to sulfonamides; Z88.8 Allergy status to other drugs, medicaments and biological substances; Z91.013 Allergy to seafood
CPT/HCPCS: 96365; 96366; J1459

== ENCOUNTER → 2024-02-25 | Outpatient (CLI) | payer OTHER ==
[~2024-02-25] MED LIST changes: -ALBUTEROL SULFATE 2.5MG/0.5ML INH NEB SOLN INH PRN; -EPINEPHrine INJ 1 MG/ML 1ML AMP IM PRN; -NS 1,000 ML IV SCH; -diphenhydrAMINE 50MG/ML VIAL IV PRN; -methylPREDNISolone 125MG 2ML VIAL IV PRN
== END ==
LOC: M WHC 12:45
PROVIDERS: ATTEND Student in an Organized Health Care Education/Training Program
DX: Z12.31 Encounter for screening mammogram for malignant neoplasm of breast (principal)

== ENCOUNTER 2024-03-20 08:03 | Outpatient (CLI) | payer OTHER ==
[~2024-03-20] VITALS: Ht 160 cm; Wt 110.9 kg
[~2024-03-20 08:03] MED LIST changes: +ALBUTEROL SULFATE 2.5MG/0.5ML INH NEB SOLN INH PRN; +EPINEPHrine INJ 1 MG/ML 1ML AMP IM PRN; +NS 1,000 ML IV SCH; +diphenhydrAMINE 50MG/ML VIAL IV PRN; +methylPREDNISolone 125MG 2ML VIAL IV PRN
[2024-03-20 08:15] VITALS: BP 107/64; O2SAT 100
[2024-03-20] MEDS: diphenhydrAMINE 25MG PO PRIOR TO INFUSION PO ONE (08:16)
[2024-03-20] MEDS: ACETAMINOPHEN 650MG PO PRIOR TO INFUSION PO ONE (08:16)
[2024-03-20] MEDS: IMMUNE GLOBULIN 10% 20 GM in IV 1 EA IV ONE (08:45)
[2024-03-20] MEDS: IMMUNE GLOBULIN 10% 5 GM in IV 1 EA IV ONE (08:48)
[2024-03-20 09:15] VITALS: BP 119/67; O2SAT 100
[2024-03-20 09:45] VITALS: BP 120/70; O2SAT 100
[2024-03-20 10:15] VITALS: BP 116/66; O2SAT 100
[2024-03-20 11:00] VITALS: BP 122/63; O2SAT 98
== END 2024-03-20 11:00 ==
LOC: M INFU 08:03
PROVIDERS: ATTEND Nurse Practitioner
DX: D80.1 Nonfamilial hypogammaglobulinemia (principal); Z88.0 Allergy status to penicillin; Z88.2 Allergy status to sulfonamides; Z88.8 Allergy status to other drugs, medicaments and biological substances; Z91.013 Allergy to seafood; Z91.048 Other nonmedicinal substance allergy status
CPT/HCPCS: 96365; 96366; J1459

== ENCOUNTER 2024-04-17 09:50 | Outpatient (CLI) | payer OTHER ==
[~2024-04-17] VITALS: Ht 160 cm; Wt 110.9 kg
[2024-04-17 09:50] VITALS: BP 164/90; O2SAT 95
[2024-04-17] MEDS: diphenhydrAMINE 25MG PO PRIOR TO INFUSION PO ONE (09:53)
[2024-04-17] MEDS: ACETAMINOPHEN 650MG PO PRIOR TO INFUSION PO ONE (09:53)
[2024-04-17] MEDS: IMMUNE GLOBULIN 10% 20 GM in IV 1 EA IV ONE (09:59)
[2024-04-17] MEDS: IMMUNE GLOBULIN 10% 5 GM in IV 1 EA IV ONE (10:00)
[2024-04-17 10:30] VITALS: BP 116/71; O2SAT 99
[2024-04-17 12:30] VITALS: BP 133/90; O2SAT 98
== END 2024-04-17 12:30 ==
LOC: M INFU 09:50
PROVIDERS: ATTEND Nurse Practitioner
DX: D80.1 Nonfamilial hypogammaglobulinemia (principal); Z88.0 Allergy status to penicillin; Z88.2 Allergy status to sulfonamides; Z88.8 Allergy status to other drugs, medicaments and biological substances; Z91.013 Allergy to seafood; Z91.048 Other nonmedicinal substance allergy status
CPT/HCPCS: 96365; 96366; J1459

== ENCOUNTER 2024-05-15 09:35 | Outpatient (CLI) | payer OTHER ==
[~2024-05-15] VITALS: Ht 160 cm; Wt 111.0 kg
[2024-05-15 09:35] VITALS: BP 117/70; O2SAT 98
[~2024-05-15 09:35] MED LIST changes: +GABA-1490 PO; -GABA600T4 PO
[2024-05-15] MEDS: diphenhydrAMINE 25MG PO PRIOR TO INFUSION PO ONE (09:46)
[2024-05-15] MEDS: ACETAMINOPHEN 650MG PO PRIOR TO INFUSION PO ONE (09:46)
[2024-05-15] MEDS: IMMUNE GLOBULIN 10% 20 GM in IV 1 EA IV ONE (09:49)
[2024-05-15] MEDS: IMMUNE GLOBULIN 10% 5 GM in IV 1 EA IV ONE (09:50)
[2024-05-15 10:15] VITALS: BP 111/71; O2SAT 96
[2024-05-15 10:45] VITALS: BP 119/61; O2SAT 98
[2024-05-15 11:15] VITALS: BP 120/68; O2SAT 97
== END 2024-05-15 12:00 ==
LOC: M INFU 09:35
PROVIDERS: ATTEND Nurse Practitioner
DX: D80.1 Nonfamilial hypogammaglobulinemia (principal); Z88.0 Allergy status to penicillin; Z88.2 Allergy status to sulfonamides; Z88.8 Allergy status to other drugs, medicaments and biological substances; Z91.013 Allergy to seafood; Z91.048 Other nonmedicinal substance allergy status
CPT/HCPCS: 96365; 96366; J1459

== ENCOUNTER 2024-06-12 07:45 | Outpatient (CLI) | payer OTHER ==
[~2024-06-12] VITALS: Ht 160 cm; Wt 110.0 kg
[2024-06-12 07:45] VITALS: BP 102/55; O2SAT 98
[~2024-06-12 07:45] MED LIST changes: -DOXY-323; +DOXY-441; -NS 1,000 ML IV SCH
[2024-06-12] MEDS: ACETAMINOPHEN TAB 650MG DOSE (2X325MG) PO ONE (07:50)
[2024-06-12] MEDS: diphenhydrAMINE 25MG CAP PO ONE (07:50)
[2024-06-12] MEDS ORDERED: NS 1,000 ML IV SCH (08:00)
[2024-06-12] MEDS: IMMUNE GLOBULIN 10% 20 GM in IV 1 EA IV ONE (08:08)
[2024-06-12] MEDS: IMMUNE GLOBULIN 10% 5 GM in IV 1 EA IV ONE (08:08)
[2024-06-12 08:30] VITALS: BP 112/53; O2SAT 96
[2024-06-12 09:00] VITALS: BP 119/61; O2SAT 96
[2024-06-12 09:30] VITALS: BP 105/58; O2SAT 100
[2024-06-12 10:05] VITALS: BP 138/73; O2SAT 99
== END 2024-06-12 10:55 ==
LOC: M INFU 07:45
PROVIDERS: ATTEND Nurse Practitioner
DX: D80.1 Nonfamilial hypogammaglobulinemia (principal); Z88.0 Allergy status to penicillin; Z88.2 Allergy status to sulfonamides; Z88.8 Allergy status to other drugs, medicaments and biological substances; Z91.013 Allergy to seafood
CPT/HCPCS: 96365; 96366; J1459

== ENCOUNTER → 2024-07-09 | Outpatient (REF) | payer OTHER ==
[~2024-07-09] MED LIST changes: -ALBUTEROL SULFATE 2.5MG/0.5ML INH NEB SOLN INH PRN; -EPINEPHrine INJ 1 MG/ML 1ML AMP IM PRN; -diphenhydrAMINE 50MG/ML VIAL IV PRN; -methylPREDNISolone 125MG 2ML VIAL IV PRN
== END ==
LOC: M SFHCPLAZ 11:00
PROVIDERS: ATTEND Physician Assistant Medical
DX: J06.9 Acute upper respiratory infection, unspecified (principal); J40 Bronchitis, not specified as acute or chronic

== ENCOUNTER 2024-07-10 08:00 | Outpatient (CLI) | payer OTHER ==
[~2024-07-10] VITALS: Ht 160 cm; Wt 113.0 kg
[~2024-07-10 08:00] MED LIST changes: +ALBUTEROL SULFATE 2.5MG/0.5ML INH NEB SOLN INH PRN; +EPINEPHrine INJ 1 MG/ML 1ML AMP IM PRN; +IMMUNE GLOBULIN 10% 20 GM in IV 1 EA IV ONE; +NS 1,000 ML IV SCH; +diphenhydrAMINE 50MG/ML VIAL IV PRN; +methylPREDNISolone 125MG 2ML VIAL IV PRN
[2024-07-10] MEDS: ACETAMINOPHEN 650MG PO PRIOR TO INFUSION PO ONE (08:01)
[2024-07-10] MEDS: diphenhydrAMINE 25MG PO PRIOR TO INFUSION PO ONE (08:02)
[2024-07-10 08:17] VITALS: BP 130/79; O2SAT 98
[2024-07-10] MEDS: IMMUNE GLOBULIN 10% 20 GM in IV 1 EA IV ONE (08:46)
[2024-07-10 09:30] VITALS: BP 117/70; O2SAT 97
[2024-07-10 10:00] VITALS: BP 120/84; O2SAT 98
[2024-07-10 10:30] VITALS: BP 122/74; O2SAT 100
[2024-07-10 10:50] VITALS: BP 135/84; O2SAT 97
[2024-07-10 10:51] VITALS: BP 135/84; TEMP 36.7; O2SAT 97
== END 2024-07-10 10:50 ==
LOC: M INFU 08:00
PROVIDERS: ATTEND Nurse Practitioner
DX: D80.1 Nonfamilial hypogammaglobulinemia (principal); Z88.0 Allergy status to penicillin; Z88.2 Allergy status to sulfonamides; Z88.8 Allergy status to other drugs, medicaments and biological substances; Z91.013 Allergy to seafood; Z91.048 Other nonmedicinal substance allergy status
CPT/HCPCS: 96365; 96366; J1459

== ENCOUNTER → 2024-07-19 | Outpatient (REF) | payer OTHER ==
[~2024-07-19] MED LIST changes: -ALBUTEROL SULFATE 2.5MG/0.5ML INH NEB SOLN INH PRN; -EPINEPHrine INJ 1 MG/ML 1ML AMP IM PRN; -IMMUNE GLOBULIN 10% 20 GM in IV 1 EA IV ONE; -NS 1,000 ML IV SCH; -diphenhydrAMINE 50MG/ML VIAL IV PRN; -methylPREDNISolone 125MG 2ML VIAL IV PRN
== END ==
LOC: M LAB REF 17:24
PROVIDERS: ATTEND Registered Nurse
DX: J06.9 Acute upper respiratory infection, unspecified (principal)

== ENCOUNTER 2024-08-18 08:00 | Outpatient (CLI) | payer OTHER ==
[~2024-08-18] VITALS: Ht 160 cm; Wt 112.7 kg
[2024-08-18 08:00] VITALS: BP 95/50; O2SAT 96
[~2024-08-18 08:00] MED LIST changes: +ACETAMINOPHEN 650 MG PO ONE; +ALBUTEROL SULFATE 2.5MG/0.5ML INH NEB SOLN INH PRN; +EPINEPHrine INJ 1 MG/ML 1ML AMP IM PRN; +IMMUNE GLOBULIN 10% 20 GM in IV 1 EA IV ONE; +NS 1,000 ML IV SCH; +diphenhydrAMINE 25MG CAP PO ONE; +diphenhydrAMINE 50MG/ML VIAL IV PRN; +methylPREDNISolone 125MG 2ML VIAL IV PRN
[2024-08-18] MEDS: ACETAMINOPHEN 650MG PO PRIOR TO INFUSION PO ONE (08:06)
[2024-08-18] MEDS: diphenhydrAMINE 25MG PO PRIOR TO INFUSION PO ONE (08:06)
[2024-08-18] MEDS: IMMUNE GLOBULIN 10% 20 GM in IV 1 EA IV ONE (08:31)
[2024-08-18 10:35] VITALS: BP 109/59; O2SAT 96
== END 2024-08-18 10:35 ==
LOC: M INFU 08:00
PROVIDERS: ATTEND Nurse Practitioner
DX: D80.1 Nonfamilial hypogammaglobulinemia (principal); Z88.0 Allergy status to penicillin; Z88.2 Allergy status to sulfonamides; Z88.8 Allergy status to other drugs, medicaments and biological substances; Z91.013 Allergy to seafood
CPT/HCPCS: 96365; 96366; J1459

== ENCOUNTER 2024-09-15 09:17 | Outpatient (CLI) | payer OTHER ==
[~2024-09-15 09:17] MED LIST changes: -ACETAMINOPHEN 650 MG PO ONE; -IMMUNE GLOBULIN 10% 20 GM in IV 1 EA IV ONE; +NS (Normal Saline) 0.9% 1,000 ML IV SCH; -NS 1,000 ML IV SCH; -diphenhydrAMINE 25MG CAP PO ONE
[2024-09-15 09:30] VITALS: BP 111/74; O2SAT 98
[2024-09-15] MEDS: ACETAMINOPHEN 650MG PO PRIOR TO INFUSION PO ONE (09:39)
[2024-09-15] MEDS: diphenhydrAMINE 25MG PO PRIOR TO INFUSION PO ONE (09:39)
[2024-09-15] MEDS: IMMUNE GLOBULIN 10% 20 GM in IV 1 EA IV ONE (09:40)
[2024-09-15 10:15] VITALS: BP 119/81; O2SAT 99
[2024-09-15 10:45] VITALS: BP 97/66; O2SAT 96
[2024-09-15 11:30] VITALS: BP 100/84; O2SAT 98
== END 2024-09-15 11:35 ==
LOC: M INFU 09:17
PROVIDERS: ATTEND Nurse Practitioner
DX: D80.1 Nonfamilial hypogammaglobulinemia (principal); Z88.0 Allergy status to penicillin; Z88.2 Allergy status to sulfonamides; Z88.8 Allergy status to other drugs, medicaments and biological substances; Z91.013 Allergy to seafood
CPT/HCPCS: 96365; 96366; J1459

== ENCOUNTER 2024-10-13 08:10 | Outpatient (CLI) | payer OTHER ==
[~2024-10-13] VITALS: Ht 160 cm; Wt 103.0 kg
[2024-10-13 08:10] VITALS: BP 115/76; O2SAT 94
[2024-10-13] MEDS: diphenhydrAMINE 25MG PO PRIOR TO INFUSION PO ONE (08:14)
[2024-10-13] MEDS: ACETAMINOPHEN 650MG PO PRIOR TO INFUSION PO ONE (08:14)
[2024-10-13] MEDS: IMMUNE GLOBULIN 10% 20 GM in IV 1 EA IV ONE (08:24)
[2024-10-13 09:30] VITALS: BP 116/70; O2SAT 97
[2024-10-13 10:28] VITALS: BP 111/69; O2SAT 96
== END 2024-10-13 10:30 ==
LOC: M INFU 08:10
PROVIDERS: ATTEND Nurse Practitioner
DX: D80.1 Nonfamilial hypogammaglobulinemia (principal); Z88.0 Allergy status to penicillin; Z88.2 Allergy status to sulfonamides; Z88.8 Allergy status to other drugs, medicaments and biological substances; Z91.013 Allergy to seafood
CPT/HCPCS: 96365; 96366; J1459

== ENCOUNTER 2024-11-10 07:50 | Outpatient (CLI) | payer OTHER ==
[~2024-11-10] VITALS: Ht 160 cm; Wt 103.0 kg
[2024-11-10] MEDS: diphenhydrAMINE 25MG PO PRIOR TO INFUSION PO ONE (07:58)
[2024-11-10] MEDS: ACETAMINOPHEN 650MG PO PRIOR TO INFUSION PO ONE (07:58)
[2024-11-10 08:00] VITALS: BP 131/69; O2SAT 97
[2024-11-10] MEDS: IMMUNE GLOBULIN 10% 20 GM in IV 1 EA IV ONE (08:56)
[2024-11-10 09:30] VITALS: BP 94/56; O2SAT 97
[2024-11-10 10:00] VITALS: BP 105/69; O2SAT 96
[2024-11-10 10:30] VITALS: BP 111/79; O2SAT 100
[2024-11-10 11:00] VITALS: BP 99/64; O2SAT 96
== END 2024-11-10 11:00 ==
LOC: M INFU 07:50
PROVIDERS: ATTEND Nurse Practitioner
DX: D80.1 Nonfamilial hypogammaglobulinemia (principal); Z88.0 Allergy status to penicillin; Z88.2 Allergy status to sulfonamides; Z88.8 Allergy status to other drugs, medicaments and biological substances; Z91.013 Allergy to seafood
CPT/HCPCS: 96365; 96366; J1459

== ENCOUNTER → 2024-12-09 | Outpatient (CLI) | payer OTHER ==
[~2024-12-09] VITALS: Ht 160 cm; Wt 110.9 kg
[~2024-12-09] MED LIST changes: +[UNRECOGNIZED DRUG - CODE] PO
[2024-12-09 08:20] VITALS: BP 121/71; O2SAT 98
[2024-12-09] MEDS: ACETAMINOPHEN 650MG PO PRIOR TO INFUSION PO ONE (08:20)
[2024-12-09] MEDS: diphenhydrAMINE 25MG PO PRIOR TO INFUSION PO ONE (08:20)
[2024-12-09] MEDS: IMMUNE GLOBULIN 10% 20 GM in IV 1 EA IV ONE (08:37)
[2024-12-09 09:15] VITALS: BP 110/69; O2SAT 99
[2024-12-09 09:45] VITALS: BP 119/74; O2SAT 99
[2024-12-09 10:15] VITALS: BP 120/70; O2SAT 99
[2024-12-09 10:45] VITALS: BP 111/64; O2SAT 98
== END ==
LOC: M INFU 08:07
PROVIDERS: ATTEND Nurse Practitioner
DX: D80.1 Nonfamilial hypogammaglobulinemia (principal); Z88.0 Allergy status to penicillin; Z88.2 Allergy status to sulfonamides; Z88.8 Allergy status to other drugs, medicaments and biological substances; Z91.013 Allergy to seafood; Z91.040 Latex allergy status
CPT/HCPCS: 96365; 96366; J1459

== ENCOUNTER 2025-01-05 07:42 | Outpatient (CLI) | payer OTHER ==
[~2025-01-05 07:42] MED LIST changes: +ALBUTEROL SULFATE 2.5MG/0.5ML INH CONCENTRATE NEB SOLN INH PRN; -ALBUTEROL SULFATE 2.5MG/0.5ML INH NEB SOLN INH PRN
[2025-01-05] MEDS: ACETAMINOPHEN 650MG PO PRIOR TO INFUSION PO ONE (07:55)
[2025-01-05] MEDS: diphenhydrAMINE 25MG PO PRIOR TO INFUSION PO ONE (07:55)
[2025-01-05 08:09] VITALS: BP 131/82; O2SAT 97
[2025-01-05] MEDS: IMMUNE GLOBULIN 10% 20 GM in IV 1 EA IV ONE (08:15)
[2025-01-05 08:30] VITALS: BP 99/51; O2SAT 96
[2025-01-05 09:00] VITALS: BP 100/59; O2SAT 100
[2025-01-05 09:30] VITALS: BP 111/63; O2SAT 98
[2025-01-05 09:50] VITALS: BP 107/56; O2SAT 98
== END 2025-01-05 09:55 ==
LOC: M INFU 07:42
PROVIDERS: ATTEND Nurse Practitioner
DX: D80.1 Nonfamilial hypogammaglobulinemia (principal); Z88.0 Allergy status to penicillin; Z88.2 Allergy status to sulfonamides; Z88.8 Allergy status to other drugs, medicaments and biological substances; Z91.013 Allergy to seafood
CPT/HCPCS: 96365; 96366; J1459

== ENCOUNTER 2025-03-30 07:44 | Outpatient (CLI) | payer OTHER ==
[~2025-03-30] VITALS: Ht 160 cm; Wt 105.4 kg
[~2025-03-30 07:44] MED LIST changes: +ALBUTEROL SULFATE 2.5 MG/0.5 ML INH CONCENTRATE NEB SOLN INH PRN; -ALBUTEROL SULFATE 2.5MG/0.5ML INH CONCENTRATE NEB SOLN INH PRN; +diphenhydrAMINE 50 MG/ML VIAL IV PRN; -diphenhydrAMINE 50MG/ML VIAL IV PRN; -methylPREDNISolone 125MG 2ML VIAL IV PRN
[2025-03-30 07:50] VITALS: BP 145/98; O2SAT 98
[2025-03-30] MEDS: ACETAMINOPHEN 650MG PO PRIOR TO INFUSION PO ONE (07:55)
[2025-03-30] MEDS: diphenhydrAMINE 25MG PO PRIOR TO INFUSION PO ONE (07:55)
[2025-03-30] MEDS: IMMUNE GLOBULIN 10% 20 GM in IV 1 EA IV ONE (07:56)
[2025-03-30 08:30] VITALS: BP 93/56; O2SAT 97
[2025-03-30 09:00] VITALS: BP 101/61; O2SAT 98
[2025-03-30 09:30] VITALS: BP 100/59; O2SAT 97
[2025-03-30 09:55] VITALS: BP 93/56; O2SAT 98
== END 2025-03-30 10:00 ==
LOC: M INFU 07:44
PROVIDERS: ATTEND Nurse Practitioner
DX: D80.1 Nonfamilial hypogammaglobulinemia (principal); Z88.0 Allergy status to penicillin; Z88.2 Allergy status to sulfonamides; Z88.8 Allergy status to other drugs, medicaments and biological substances; Z91.013 Allergy to seafood
CPT/HCPCS: 96365; 96366; J1459

== ENCOUNTER → 2025-04-15 | Outpatient (REF) | payer OTHER ==
[~2025-04-15] MED LIST changes: -ALBUTEROL SULFATE 2.5 MG/0.5 ML INH CONCENTRATE NEB SOLN INH PRN; -EPINEPHrine INJ 1 MG/ML 1ML AMP IM PRN; -NS (Normal Saline) 0.9% 1,000 ML IV SCH; -diphenhydrAMINE 50 MG/ML VIAL IV PRN
[2025-04-15 08:20] LABS: BASO # 0.1 10^3/uL (0.0-0.2); BASO % 0.6 % (0.0-1.0); EOS # 0.3 10^3/uL (0.0-0.5); EOS % 2.9 % (0.0-3.0); LYMPH # 2.3 10^3/uL (1.5-5.0); LYMPH % 19.8 % (24.0-44.0); MONO # 1.2 10^3/uL (0.0-0.8); MONO % 10.7 % (2.0-8.0); NEUTROPHILS # 7.5 10^3/uL (1.5-8.5); NEUTROPHILS % 65.7 % (36.0-66.0); PLATELET COUNT, AUTOMATED 417 10^3/uL (150-450)
[2025-04-15 08:50] LABS: ALT/SGPT 14 U/L (7.0-40); AST/SGOT 12 U/L (<34); CALCIUM LEVEL 9.1 MG/DL (8.5-10.1); CARBON DIOXIDE LEVEL 27 MMOL/L (20-31); CHLORIDE LEVEL 106 MMOL/L (98-107); CREATININE FOR GFR 0.83 MG/DL (0.55-1.30); GLOMERULAR FILTRATION RATE > 90.0 (>58); POTASSIUM SERUM 4.0 MMOL/L (3.5-5.1); SODIUM LEVEL 144 MMOL/L (136-145)
== END ==
LOC: M LAB REF 07:58
PROVIDERS: ATTEND Physician Assistant Medical
DX: G36.0 Neuromyelitis optica [Devic] (principal)

== ENCOUNTER 2025-04-27 08:02 | Outpatient (CLI) | payer OTHER ==
[~2025-04-27] VITALS: Ht 160 cm; Wt 104.5 kg
[~2025-04-27 08:02] MED LIST changes: +ALBUTEROL SULFATE 2.5 MG/0.5 ML INH CONCENTRATE NEB SOLN INH PRN; +EPINEPHrine INJ 1 MG/ML 1ML AMP IM PRN; +NS (Normal Saline) 0.9% 1,000 ML IV SCH; +diphenhydrAMINE 50 MG/ML VIAL IV PRN
[2025-04-27 08:05] VITALS: BP 104/61; O2SAT 97
[2025-04-27] MEDS: diphenhydrAMINE 25MG PO PRIOR TO INFUSION PO ONE (08:22)
[2025-04-27] MEDS: ACETAMINOPHEN 650MG PO PRIOR TO INFUSION PO ONE (08:23)
[2025-04-27] MEDS: IMMUNE GLOBULIN 10% 20 GM in IV 1 EA IV ONE (08:24)
[2025-04-27 09:00] VITALS: BP 98/58; O2SAT 98
[2025-04-27 09:30] VITALS: BP 100/61; O2SAT 98
[2025-04-27 10:00] VITALS: BP 110/64; O2SAT 99
[2025-04-27 10:30] VITALS: BP 102/57; O2SAT 98
== END 2025-04-27 10:30 | disposition home or self-care (01) ==
LOC: M INFU 08:02
PROVIDERS: ATTEND Nurse Practitioner
DX: D80.1 Nonfamilial hypogammaglobulinemia (principal); Z88.0 Allergy status to penicillin; Z88.2 Allergy status to sulfonamides; Z88.8 Allergy status to other drugs, medicaments and biological substances; Z91.013 Allergy to seafood; Z91.048 Other nonmedicinal substance allergy status
CPT/HCPCS: 36593; 96365; 96366; J1459

== ENCOUNTER 2025-07-27 07:28 | Outpatient (CLI) | payer OTHER ==
[~2025-07-27] VITALS: Ht 160 cm; Wt 103.6 kg
[2025-07-27] MEDS: diphenhydrAMINE 25MG PO PRIOR TO INFUSION PO ONE (07:39)
[2025-07-27] MEDS: ACETAMINOPHEN 650MG PO PRIOR TO INFUSION PO ONE (07:39)
[2025-07-27 07:47] VITALS: BP 106/56; O2SAT 96
[2025-07-27] MEDS: IMMUNE GLOBULIN 10% 20 GM in IV 1 EA IV ONE (07:53)
[2025-07-27 08:30] VITALS: BP 106/61; O2SAT 98
[2025-07-27 09:00] VITALS: BP 101/60; O2SAT 97
[2025-07-27 09:45] VITALS: BP 109/65; O2SAT 97
== END 2025-07-27 09:45 | disposition home or self-care (01) ==
LOC: M INFU 07:28
PROVIDERS: ATTEND Internal Medicine Medical Oncology
DX: D80.1 Nonfamilial hypogammaglobulinemia (principal); Z88.0 Allergy status to penicillin; Z88.2 Allergy status to sulfonamides; Z88.8 Allergy status to other drugs, medicaments and biological substances; Z91.013 Allergy to seafood; Z91.048 Other nonmedicinal substance allergy status
CPT/HCPCS: 96365; 96366; J1459

== ENCOUNTER 2025-08-24 09:20 | Outpatient (CLI) | payer OTHER ==
[~2025-08-24] VITALS: Ht 160 cm; Wt 102.7 kg
[2025-08-24 09:25] VITALS: BP 117/58; O2SAT 97
[2025-08-24] MEDS: ACETAMINOPHEN 650MG PO PRIOR TO INFUSION PO ONE (09:34)
[2025-08-24] MEDS: diphenhydrAMINE 25MG PO PRIOR TO INFUSION PO ONE (09:34)
[2025-08-24] MEDS: IMMUNE GLOBULIN 10% 20 GM in IV 1 EA IV ONE (09:36)
[2025-08-24 10:00] VITALS: BP 102/59; O2SAT 99
[2025-08-24 10:30] VITALS: BP 100/53; O2SAT 99
[2025-08-24 11:30] VITALS: BP 123/74; O2SAT 99
== END 2025-08-24 11:30 | disposition home or self-care (01) ==
LOC: M INFU 09:20
PROVIDERS: ATTEND Internal Medicine Medical Oncology
DX: D80.1 Nonfamilial hypogammaglobulinemia (principal); Z88.0 Allergy status to penicillin; Z88.2 Allergy status to sulfonamides; Z88.8 Allergy status to other drugs, medicaments and biological substances; Z91.013 Allergy to seafood
CPT/HCPCS: 96365; 96366; J1459